=== PATIENT | female | born 1985 | race African-American/Black ===

== ENCOUNTER 2020-10-07 11:05 | Emergency (ER) | payer OTHER, SELFPAY ==
--- NOTE | 2020-10-07 11:07 | ED.GENADULT ---
HPI - General Adult General Chief complaint: Skin/Abscess/Foreign Body Stated complaint: rt arm pos spider bite Time Seen by Provider: 10/07/20 11:07 Source: patient Mode of arrival: ambulatory Limitations: no limitations History of Present Illness HPI narrative: 35-year-old female patient presents to the [facility] with complaints of a wound to the right arm above the elbow for the past 3 days. Patient states she was at work taking down some boxes. Patient denies any injury to the elbow or burn to the elbow. Patient states she thinks she might of gotten bit by something but is not sure. Patient states that has developed a blister and she has popped it for the last 2 nights but states it keeps coming back. Patient states it also feels slightly warm to the touch but no pain with movement of the elbow. Patient states she has had some chills but denies fevers or body aches. Related Data Home Medications Medication Instructions Recorded Confirmed aspirin [Adult Low Dose Aspirin] 81 mg PO DAILY 10/07/20 10/07/20 metoprolol tartrate 50 mg PO DAILY 10/07/20 10/07/20 Allergies Allergy/AdvReac Type Severity Reaction Status Date / Time No Known Allergies Allergy Verified 10/07/20 11:14 Review of Systems Review of Systems: Narrative: CONSTITUTIONAL: Denies fever, chills, or sweats. EYES: Denies visual changes, redness, or discharge. ENT: Denies rhinorrhea, congestion, sore throat, or otalgia. CARDIOVASCULAR: Denies chest pain, palpitations, or edema. RESPIRATORY: Denies cough or dyspnea. GASTROINTESTINAL: Denies abdominal pain, nausea, vomiting, or diarrhea. GENITOURINARY: Denies dysuria or hematuria. SKIN: Denies rash or itching. Positive wound to the right elbow x3 days MUSCULOSKELETAL: Denies back pain, joint pain, or myalgia. NEUROLOGIC: Denies headache, numbness, or weakness. PSYCHIATRIC: Denies anxiety or depression. PMFSH Comments At the time of my signature I agree with nursing past medical history, surgical, social, and family history. There is no relevant family history pertinent to the presenting complaint. Exam Narrative: Exam Narrative: GENERAL: Well-appearing, well-nourished, and in no acute distress. HEAD: Normocephalic, atraumatic. EYES: PERRLA and EOMI. ENT: Nares clear, no rhinorrhea or epistaxis. Mucous membranes moist. NECK: Supple. No lymphadenopathy CHEST: Clear to auscultation. No respiratory distress. HEART: Regular rate and rhythm. No murmur heard. Normal peripheral pulses. ABDOMEN: Soft, nontender, nondistended, normal active bowel sounds. EXTREMITIES: Normal range of motion. No edema. SKIN: Warm, dry, no rash. Patient has some redness with some warmth noted above the elbow on the posterior side of the right arm. There is a blister that has developed to the area measuring approximately 1.5 cm. The blister is fluid-filled. Patient has good range of motion of the elbow. NEURO: No focal deficits. Alert and oriented x3. Course Vital Signs Vital signs: Vital Signs Temperature 37.1 C 10/07/20 11:19 Pulse Rate 77 10/07/20 11:19 Respiratory Rate 16 10/07/20 11:19 Blood Pressure 117/91 H 10/07/20 11:19 Pulse Oximetry 100 10/07/20 11:19 Temperature 37.1 C 10/07/20 11:19 Pulse Rate 77 10/07/20 11:19 Respiratory Rate 16 10/07/20 11:19 Blood Pressure 117/91 H 10/07/20 11:19 Pulse Oximetry 100 10/07/20 11:19 Vital signs reviewed Medical Decision Making Differential Diagnosis Differential Diagnosis: Differential diagnosis: Abscess, cellulitis, hidradenitis, laceration, puncture wound. Discussed with patient that it does appear that she has a blister to the elbow which we normally do not pop blisters and encouraged him to actually protect the blisters because there is healing going on underneath them. Discussed with her that the skin around the blister though does appear red with some warmth therefore we will go ahead and treat her as a cellulitis infection today wit
[2020-10-07 11:19] VITALS: BP 117/91; PULSE 77; RESP 16; TEMP 37.1; O2SAT 100
== END 2020-10-07 11:36 | disposition home or self-care (01) ==
PROVIDERS: Emergency Provider Nurse Practitioner Family
DX: S40.821A Blister (nonthermal) of right upper arm, initial encounter (principal); L03.113 Cellulitis of right upper limb; J45.909 Unspecified asthma, uncomplicated; I25.10 Atherosclerotic heart disease of native coronary artery without angina pectoris
CPT/HCPCS: 99213; G0463

== ENCOUNTER 2022-11-25 09:40 | Emergency (ER) | payer OTHER, SELFPAY ==
[2022-11-25] VITALS (7 sets, daily range): BP systolic 116–127; BP diastolic 79–98; PULSE 87–110; RESP 16; TEMP 36.8; O2SAT 98–100
--- NOTE | ~2022-11-25 | CT_ITS ---
EXAMINATION: CT abdomen pelvis w con DATE: 11/25/2022 13:40 INDICATION: Concern for pyelonephritis TECHNIQUE: Computed tomography (CT) of the abdomen and pelvis was performed with 100 cc Omnipaque 350 intravenous contrast. The dose-length product was 344.38 mGy-cm. Automated exposure control and iter ative reconstruction technique were employed. COMPARISON: None. FINDINGS: Lung bases unremarkable. Heart size normal. No significant pleural or pericardial effusion. No significant vascular abnormality. No lymphadenopathy. There is free fluid in the pelvis, likely p hysiologic. Fatty infiltration of the liver. The spleen, pancreas, adrenal glands and kidneys are unr emarkable. No hydronephrosis. No areas of hypoperfusion. No free air. Nonobstructive bowel pattern. T he bladder is decompressed. IMPRESSION: 1. No acute abdominal abnormality. Free fluid in the pelvis, likely physiologic. Reviewed, dictated and finalized at location B. IMPRESSION: 1. No acute abdominal abnormality. Free fluid in the pelvis, likely physiologic .
--- NOTE | 2022-11-25 10:49 | ED.GENADULT ---
HPI - General Adult General Chief complaint: Unspecified Stated complaint: multiple complaints Time Seen by Provider: 11/25/22 09:51 Source: patient Mode of arrival: ambulatory Limitations: no limitations History of Present Illness HPI narrative: This is a 37-year-old female who presents to the ED with chief complaint of generalized abdominal pain, bilateral flank pain, bilateral upper extremity tingling, shortness of breath for the past 3 days. Patient states that the abdominal pain and back pain has been a problem for several weeks. She had a recent EGD. She feels like the pain is unchanged but she started having tingling and shortness of breath last night. States she has been stressed out with this. She also reports some difficulty with urination and frequency. Denies fevers, chills, diarrhea, nausea, vomiting. Related Data Home Medications Medication Instructions Recorded Confirmed aspirin 81 mg tablet 81 mg PO DAILY 10/07/20 10/07/20 metoprolol tartrate 50 mg tablet 50 mg PO DAILY 10/07/20 10/07/20 Allergies Allergy/AdvReac Type Severity Reaction Status Date / Time No Known Allergies Allergy Verified 11/25/22 09:45 Review of Systems Review of Systems: CONSTITUTIONAL: Denies fever, chills, or sweats. EYES: Denies visual changes, redness, or discharge. ENT: Denies rhinorrhea, congestion, sore throat, or otalgia. CARDIOVASCULAR: Denies chest pain, palpitations, or edema. RESPIRATORY: Denies cough or dyspnea. GASTROINTESTINAL: See HPI GENITOURINARY: See HPI SKIN: Denies rash or itching. MUSCULOSKELETAL: Denies back pain, joint pain, or myalgia. NEUROLOGIC: Denies headache, numbness, dizziness, or weakness. PSYCHIATRIC: Denies anxiety or depression. Exam Narrative: GENERAL: Well-appearing, well-nourished, and in no acute distress. HEAD: Normocephalic, atraumatic. EYES: PERRLA and EOMI. ENT: Nares clear, no rhinorrhea or epistaxis. Mucous membranes moist. Oropharynx without tonsillar hypertrophy exudate or other lesions. NECK: Supple. No adenopathy or masses. CHEST: No respiratory distress. Clear to auscultation. No wheezes rales or rhonchi HEART: Regular rate and rhythm. No murmur heard. Normal peripheral pulses. ABDOMEN: Mild bilateral flank tenderness. Soft, otherwise nontender, nondistended, normal active bowel sounds. MSK: Normal range of motion. No edema. SKIN: Warm, dry, no rash. NEURO: Alert and oriented x3. No focal deficits. PSYCH: Normal mood and affect. Course Course Emergency Course: Reevaluation 1308: Playing on phone when I enter the room. Patient states the abdominal pain is much better but she still having a lot of flank pain bilaterally. CT scan of the abdomen pelvis with contrast was ordered. Reevaluation 1400: Again resting comfortably and playing on phone when I entered the room. States she still has some discomfort in the flanks. We discussed that I would not be able to eliminate all of her pain today but the goal is to get it under control. Vital Signs Vital signs: Vital Signs Temperature 98.2 F 11/25/22 09:42 Pulse Rate 93 11/25/22 09:42 Respiratory Rate 16 11/25/22 09:42 Blood Pressure 122/79 11/25/22 09:42 Pulse Oximetry 99 11/25/22 09:42 Temperature 98.2 F 11/25/22 09:42 Pulse Rate 110 H 11/25/22 14:50 Respiratory Rate 16 11/25/22 14:50 Blood Pressure 120/84 11/25/22 14:50 Pulse Oximetry 98 11/25/22 14:50 Medical Decision Making MDM Narrative Medical decision making narrative: This is a 37-year-old female who presents to the ED with chief complaint of bilateral flank pain and generalized abdominal pain. vitals are stable. Afebrile. Lab work is largely unremarkable. test negative. Symptoms consistent with a viral syndrome. Lymphocytosis present. No left shift. She does have some urinary symptoms with some white blood cells on the urine along with a mild white count of 13. Will cover with Keflex. Her
[2022-11-25] MEDS: SODIUM CHLORIDE 0.9% IV 1,000 ML 999 ML IV CONT (11:11)
[2022-11-25] MEDS: FAMOTIDINE 20 MG/2 ML VIAL IV PUSH (11:12)
[2022-11-25] MEDS: BELLADONNA ALK/PHENOB ELIX 10 ML, MAG HYDROX/ALUMINUM HYD/SIMETH 30 ML, LIDOCAINE HCL 2... PO (11:13)
[2022-11-25] MEDS: KETOROLAC 15 MG/ML VIAL (*BKC) IV PUSH (11:34)
[2022-11-25 12:12] LABS: Basophils Absolute Auto 0.1 K/mm3 (0.0-0.1); Basophils Percent Auto 0.5 % (0.2-1.2); Eosinophils Absolute Auto 0.1 K/mm3 (0-0.3); Eosinophils Percent Auto 0.5 % (0-4.4); Hemoglobin 11.3 g/dL (12.0-15.0); Immature Granulocyte Absolute 0.02 K/mm3 (0.00-0.031); Immature Granulocyte Percent A 0.2 % (0-0.5); Lymphocytes Absolute Auto 10.67 K/mm3 (0.9-3.2); Lymphocytes Percent Auto 81.1 % (18.3-44.2); Mean Corpuscular HGB Conc 30.5 g/dl (32-36); Mean Corpuscular Hemoglobin 23.7 pg (26-34); Mean Corpuscular Volume 77.6 fl (80-100); Mean Platelet Volume 10.8 fl (7.4-10.4); Monocytes Absolute Auto 0.9 K/mm3 (0.1-0.6); Neutrophils Absolute Auto 1.4 K/mm3 (1.3-6.7); Neutrophils Percent Auto 10.7 % (45.5-73.1); Platelet Count Result 261 k/mm3 (150-375); Red Blood Count 4.77 M/mm3 (4.2-5.4); Red Cell Distribution Width 19.9 % (11.5-14.5); White Blood Count 13.2 K/mm3 (4.5-10.0)
[2022-11-25 12:14] LABS: Appearance Urine Cloudy (Clear); Bacteria Urine None Seen /hpf; Bilirubin Urine Negative (Negative); Blood Urine Negative (Negative); Color Urine Yellow (Yellow); Glucose Urine UA Negative (Negative); Ketones Urine Negative (Negative); Leukocyte Esterase Ur Negative LEU/UL (Negative); Nitrate Urine Negative (Negative); Non Pathogenic Casts 0-2; Protein Urine 1+ mg/dL (Negative); RBC Urine 0-2 /hpf (0-2); Specific Grav Ur 1.018 (1.001-1.035); Squamous Epithelial Cell Urine Many /hpf (Few); pH Urine 6.5 (5.0-9.0)
[2022-11-25 12:22] LABS: Add Urine Microscopic? YES
[2022-11-25 12:23] LABS: Alanine Aminotransferase 84 U/L (6-35); Albumin Level 3.7 g/dL (3.5-5.1); Alkaline Phosphatase 68 U/L (38-126); Anion Gap 4 mmol/L (8-16); Aspartate Amino Transferase 133 U/L (14-36); Bilirubin,Total 0.6 mg/dL (0.2-1.3); Blood Urea Nitrogen 5 mg/dL (7-17); Calcium 8.6 mg/dL (8.4-10.2); Carbon Dioxide 30 mmol/L (22-30); Chloride 102 mmol/L (98-107); Estimated CRCL calculation 78 ml/min; Estimated Glomerular Filt Rate > 60; Glucose 99 mg/dL (65-110); Sodium 136 mmol/L (137-145)
[2022-11-25 12:37] LABS: Atypical Lymphocytes Present; Platelet Estimate Adequate (Adequate); Schistocytes None Seen (NORMAL); Target Cells 1+ (NORMAL)
[2022-11-25 14:25] LABS: CRP 1.2 mg/dL (<1.0)
== END 2022-11-25 14:50 | disposition home or self-care (01) ==
PROVIDERS: Emergency Provider Physician Assistant; PCP Nurse Practitioner Family
DX: B34.9 Viral infection, unspecified (principal); N39.0 Urinary tract infection, site not specified
CPT/HCPCS: 36415; 74177; 80053; 81001; 81025; 85025; 86140; 87086; 96361; 96374; 96375; 99284; A9270; J1885; J7030; Q9967

== ENCOUNTER 2023-12-01 17:37 | Emergency (ER) | payer MEDICAID, SELFPAY ==
[2023-12-01 17:38] VITALS: BP 150/94; PULSE 110; RESP 16; TEMP 37; O2SAT 100
[2023-12-01 17:55] VITALS: BP 145/79; PULSE 104; RESP 18; O2SAT 100
--- NOTE | 2023-12-01 18:33 | ED.GENADULT ---
HPI - General Adult General Chief complaint: Nausea/Vomiting/Diarrhea Stated complaint: vomitting- 10w Time Seen by Provider: 12/01/23 18:13 Source: patient Mode of arrival: ambulatory Limitations: no limitations History of Present Illness HPI narrative: This is a 38-year-old female who is around 10 weeks and presents for chief complaint of N/V beginning today. Medical reports this is her 3rd . She was advised by her doctor to come to the ED for medications and fluids as she has not been able to tolerate anything by mouth. States that the cheezits that she is currently eating have been the only thing she is able to eat today. Denies abdominal pain, diarrhea, fevers, chills, urinary symptoms, vaginal bleeding or discharge. She has been taking promethazine and B6 with minimal relief. Related Data Home Medications Medication Instructions Recorded Confirmed aspirin 81 mg tablet 81 mg PO DAILY 10/07/20 10/07/20 metoprolol tartrate 50 mg tablet 50 mg PO DAILY 10/07/20 10/07/20 Allergies Allergy/AdvReac Type Severity Reaction Status Date / Time No Known Allergies Allergy Verified 12/01/23 17:37 Review of Systems Review of Systems: All systems as dictated in HPI Exam Narrative: GENERAL: Well-appearing, well-nourished, and in no acute distress. Eating crackers and twix bar during exam HEAD: Normocephalic, atraumatic. EYES: PERRLA and EOMI. ENT: Nares clear, no rhinorrhea or epistaxis. Mucous membranes moist. Oropharynx without tonsillar hypertrophy exudate or other lesions. NECK: Supple. No adenopathy or masses. CHEST: No respiratory distress. Clear to auscultation. No wheezes rales or rhonchi HEART: Regular rate and rhythm. No murmur heard. Normal peripheral pulses. ABDOMEN: Soft, nontender, nondistended, normal active bowel sounds. MSK: Normal range of motion. No edema. SKIN: Warm, dry, no rash. NEURO: Alert and oriented x3. No focal deficits. PSYCH: Normal mood and affect. Course Vital Signs Vital signs: Vital Signs Temperature 98.6 F 12/01/23 17:38 Pulse Rate 110 H 12/01/23 17:38 Respiratory Rate 16 12/01/23 17:38 Blood Pressure 150/94 H 12/01/23 17:38 Pulse Oximetry 100 05/22/24 17:38 Oxygen Delivery Room Air 12/01/23 17:38 Temperature 98.6 F 12/01/23 17:38 Pulse Rate 83 12/01/23 19:54 Respiratory Rate 18 12/01/23 19:54 Blood Pressure 112/68 12/01/23 19:54 Pulse Oximetry 100 12/01/23 19:54 Oxygen Delivery Room Air 12/01/23 17:38 Medical Decision Making MDM Narrative Medical decision making narrative: This is a 30-year-old female who is X weeks presents to the ED for nausea and vomiting. Vitals show initial slight tachycardia but otherwise normal. Exam is benign. No abdominal tenderness or pain. Lab work is unremarkable overall. She has improved greatly with fluids and antiemetics here. She has been tolerating p.o since initial evaluation. Symptoms consistent with -related nausea. Pt will be discharged in stable condition. Return precautions given and supportive measures discussed. Pt is understanding and agreeable with plan for discharge and follow-up with PCP. Vital Signs Vital Signs: Vital Signs Temperature 98.6 F 12/01/23 17:38 Pulse Rate 110 H 12/01/23 17:38 Respiratory Rate 16 12/01/23 17:38 Blood Pressure 150/94 H 12/01/23 17:38 Pulse Oximetry 100 12/01/23 17:38 Oxygen Delivery Room Air 12/01/23 17:38 Temperature 98.6 F 12/01/23 17:38 Pulse Rate 83 12/01/23 19:54 Respiratory Rate 18 12/01/23 19:54 Blood Pressure 112/68 12/01/23 19:54 Pulse Oximetry 100 12/01/23 19:54 Oxygen Delivery Room Air 12/01/23 17:38 Lab Data 12/01/23 18:45 12/01/23 18:45 Labs: Lab Results 12/01/23 12/01/23 Range/Units 18:45 19:48 WBC 9.3 (4.5-10.0) K/mm3 RBC 4.28 (4.2-5.4) M/mm3 Hgb 10.2 L (12.0-15.0) g/dL Hct
[2023-12-01] MEDS: ONDANSETRON INJ 4 MG/2 ML VIAL IV PUSH (18:47)
[2023-12-01] MEDS: SODIUM CHLORIDE 0.9% IV 1,000 ML 999 ML IV CONT (18:48)
[2023-12-01 18:52] LABS: Basophils Percent Auto 0.2 % (0.2-1.2); Eosinophils Percent Auto 0.3 % (0-4.4); Hematocrit 32.4 % (37.0-47.0); Hemoglobin 10.2 g/dL (12.0-15.0); Immature Granulocyte Absolute 0.02 K/mm3 (0.00-0.031); Immature Granulocyte Percent A 0.2 % (0-0.5); Lymphocytes Absolute Auto 4.35 K/mm3 (0.9-3.2); Lymphocytes Percent Auto 46.7 % (18.3-44.2); Mean Corpuscular HGB Conc 31.5 g/dl (32-36); Mean Corpuscular Hemoglobin 23.8 pg (26-34); Mean Corpuscular Volume 75.7 fl (80-100); Mean Platelet Volume 9.9 fl (7.4-10.4); Monocytes Percent Auto 10.2 % (2.6-8.5); Neutrophils Absolute Auto 3.9 K/mm3 (1.3-6.7); Neutrophils Percent Auto 42.4 % (45.5-73.1); Platelet Count Result 297 k/mm3 (150-375); Red Blood Count 4.28 M/mm3 (4.2-5.4); Red Cell Distribution Width 20.3 % (11.5-14.5); White Blood Count 9.3 K/mm3 (4.5-10.0)
[2023-12-01 19:03] LABS: Alanine Aminotransferase 16 U/L (6-35); Albumin Level 4.5 g/dL (3.5-5.1); Alkaline Phosphatase 56 U/L (38-126); Anion Gap 10 mmol/L (4-12); Aspartate Amino Transferase 29 U/L (14-36); Bilirubin,Total 0.5 mg/dL (0.2-1.3); Blood Urea Nitrogen 12 mg/dL (7-17); Calcium 10.3 mg/dL (8.4-10.2); Carbon Dioxide 22 mmol/L (22-30); Chloride 104 mmol/L (98-107); Estimated CRCL calculation 88 ml/min; Estimated Glomerular Filt Rate > 60; Glucose 108 mg/dL (65-110); Lipase 48 U/L (23-300); Potassium 3.5 mmol/L (3.4-5.0); Sodium 136 mmol/L (137-145)
[2023-12-01 19:04] LABS: Lactic Acid Reflex 1.4 mmol/L (0.7-2.0)
[2023-12-01 19:54] VITALS: BP 112/68; PULSE 83; RESP 18; O2SAT 100
[2023-12-01 20:49] LABS: Appearance Urine Clear (Clear); Bacteria Urine 3+ /hpf; Bilirubin Urine Negative (Negative); Blood Urine Negative (Negative); Color Urine Yellow (Yellow); Glucose Urine UA Negative (Negative); Ketones Urine Negative (Negative); Leukocyte Esterase Ur 1+ LEU/UL (Negative); Nitrate Urine Negative (Negative); Non Pathogenic Casts 0-2; Protein Urine Negative (Negative); RBC Urine 0-2 /hpf (0-2); Specific Grav Ur 1.023 (1.001-1.035); Squamous Epithelial Cell Urine Many /hpf (Few); Urobilinogen Urine 0.2 mg/dL (<2.0); WBC Urine 21-50 /hpf (0-3)
[2023-12-01 21:08] LABS: Add Urine Microscopic? YES
== END 2023-12-01 20:50 | disposition home or self-care (01) ==
PROVIDERS: Emergency Provider Physician Assistant; PCP Nurse Practitioner Family
DX: O21.9 Vomiting of pregnancy, unspecified (principal); Z3A.10 10 weeks gestation of pregnancy
CPT/HCPCS: 36415; 80053; 81001; 83605; 83690; 84702; 85025; 87086; 87088; 96361; 96374; 99284; J2405; J7030

== ENCOUNTER 2025-06-14 22:35 | Emergency (ER) | payer MEDICAID, SELFPAY ==
--- NOTE | ~2025-06-14 | CT_ITS ---
EXAMINATION: CT abdomen pelvis wo con DATE: 06/15/2025 01:24 INDICATION: Flank pain. TECHNIQUE: Computed tomography (CT) of the abdomen and pelvis was performed without intravenous contrast. Automated exposure control and iterative reconstruction technique were employed. The dose-length product was 553.11 mGy-cm. COMPARISON: CT abdomen and pelvis 11/25/2022 FINDINGS: The visualized portions of the lung bases demonstrate bronchiectasis in lingula. No pleural effusion. The heart size is normal. No pericardial effusion. The liver, gallbladder, spleen, pancreas, and right adrenal gland are normal. There is a 1.6 cm mass in left adrenal gland measuring soft tissue attenuation without change from 11/25/2022, likely an adenoma. The kidneys are normal. There is no urolithiasis. The appendix is normal. There are no dilated loops of bowel. There are no pathologically enlarged lymph nodes. There is no free intraperitoneal fluid. There is mild lumbar spondylosis. IMPRESSION: 1. No urolithiasis. Reviewed, dictated and finalized at location E. [employer] IMPRESSION: 1. No urolithiasis.
--- OUTSIDE RECORDS SUMMARY | 2025-06-14 22:37 | XMS_ITS | Data Portability ---
Author Organization [facility] [place] Address [address] [place] [address] Assessment Encounter Date Assessment Date Assessment LastModified by Organization Details LastModified Time 01/14/2024 01/14/2024 Patient is _16__weeks . Discussed plan. Not available 01/14/2024 15:39:33 02/09/2024 02/09/2024 Patient is _20__weeks . Discussed plan. Not available 02/09/2024 18:05:48 09/21/2024 09/21/2024 Annual gynecological exam performed. Patient will come back in a year unless there are new symptoms. [email or web address] Not available 09/21/2024 16:24:18 Plan of Treatment Reminders Order Date Submit Date Provider Last Modified By Organization Details Last Modified Time Details Appointments None record ed. Lab None record ed. Referral None record ed. Procedures None record ed. Surgeries None record ed. Imaging None record ed. Medication Orders None record ed. Patient TargetsNo targets recorded. Patient InstructionsNo instructions recorded. Reason for Referral None Reported. Results Created Date Observation Date Name Description Value Unit Range Abnormal Flag Note LastModifiedBy Organization Detail LastModifiedTime 01/23/20 24 01/23/2024 [UNIT Y] ANEUP LOIDY NIPT fraction 6.1% normal Not Available Martina curiel [address], [place], [address], 01/23/2024 22:09:06 01/23/20 24 01/23/2024 [UNIT Y] ANEUP LOIDY NIPT sex chromosome aneuploidy NOT DETECT ED normal Not Available [facility] [address], [place], [address], 01/23/2024 22:09:06 01/23/20 24 01/23/2024 [UNIT Y] ANEUP LOIDY NIPT monosomy X LOW RISK <1 in 10,000 normal Not Available [facility] [address], [place], [address], 01/23/2024 22:09:06 01/23/20 24 01/23/2024 [UNIT Y] ANEUP LOIDY NIPT trisomy 13 LOW RISK <1 in 10,000 normal Not Available [facility] [address], [place], [address], 01/23/2024 22:09:06 01/23/20 24 01/23/2024 [UNIT Y] ANEUP LOIDY NIPT trisomy 18 LOW RISK <1 in 10,000 normal Not Available [facility] [address], [place], [address], 01/23/2024 22:09:06 01/23/20 24 01/23/2024 [UNIT Y] ANEUP LOIDY NIPT trisomy 21 LOW RISK <1 in 10,000 normal Not Available [facility] [address], [place], [address], 01/23/2024 22:09:06 01/23/20 24 01/23/2024 [UNIT Y] ANEUP LOIDY NIPT sex MALE normal Not Available [facility] [address], [place], [address], 01/23/2024 22:09:06 01/23/20 24 01/23/2024 [UNIT Y] ANEUP LOIDY NIPT gestation SINGLE TON normal Not Available [facility] [address], [place], [address], 01/23/2024 22:09:06 01/23/20 24 01/23/2024 [UNIT Y] ANEUP LOIDY NIPT for detailed report, see pdf See PDF normal Not Available [facility] [address], [place], [address], 01/23/2024 22:09:06 01/24/20 24 01/24/2024 [UNIT Y] RAISA Watt sickle cell disease/beta -thalassemia /hemoglobino pathies carrier screen NEGATI VE normal Not Available [facility] [address], [place], [address], 01/24/2024 18:29:46 01/24/20 24 01/24/2024 [UNIT Y] RAISA Watt alpha-thalas semia carrier screen NEGATI VE normal Not Available [facility] [address], [place], [address], 01/24/2024 18:29:46 01/24/20 24 01/24/2024 [UNIT Y] RAISA Watt cystic fibrosis carrier screen NEGATI VE normal Not Available [facility] [address], [place], [address], 01/24/2024 18:29:46 01/24/20 24 01/24/2024 [UNIT Y] RAISA Watt spinal muscular atrophy carrier screen NEGATI VE 3 SMN1 copies , SNP presen t normal Not Available [facility] [address], [place], [address], 01/24/2024 18:29:46 01/24/20 24 01/24/2024 [UNIT Y] RAISA Watt for detailed report, see pdf See PDF normal Not Available [facility] [address], [place], [address], 01/24/2024 18:29:46 12/16/19 24 12/16/2023 CBC W/DIF F WBC 7.0 10'3/ uL 3.5-10 .5 Not Available [facility] (Lab) [address], [place], [address], 12/17/2023 12:26:15 12/16/19 24 12/16/2023 CBC W/DIF F RBC 4.06 10'6/ uL (based on docume nted legal sex) 3.80-5 .20 Not Available [facility] (Lab) [address], [place], [address], 12/17/2023 12:26:15 12/16/19 24 12/16/2023 CBC W/DIF F HGB 9.9 g/dL (based on docume nted legal sex) 11.6-1 5.4 low Not Available [facility] (Lab) [address], [place], [address], 12/17/2023 12:26:15 12/16/19 24 12/16/2023 CBC W/DIF F HCT 31.9 % (based on docume nted legal sex) 34.0-4 5.0 low Not Available [facility] (Lab) [address], [place], [address], 12/17/2023 12:26:15 12/16/19 24 12/16/2023 CBC W/DIF F MCV 78.6 fL 80.0-9 9.0 low Not Available [facility] (Lab) [address], [place], [address], 12/17/2023 12:26:15 12/16/19 24 12/16/2023 CBC W/DIF F MCH 24.4 pg 27.0-3 4.0 low Not Available [facility] (Lab) [address] [facility], [place], [address], 12/17/2023 12:26:15 12/16/19 24 12/16/2023 CBC W/DIF F MCHC 31.0 g/dL 32.0-3 5.5 low Not Available [facility] (Lab) [address] [place], [address], 12/17/2023 12:26:15 06/06/20 24 12/16/2023 CBC W/DIF F RDW 21.3 % 11.0-1 5.0 high Not Available [facility] (Lab) [address], [place], [address], 12/17/2023 12:26:15 12/16/19 24 12/16/2023 CBC W/DIF F plt 296 10'3/ uL 150-40 0 Not Available [facility] (Lab) [address], [place], [address], 12/17/2023 12:26:15 12/16/19 24 12/16/2023 CBC W/DIF F MPV 10.7 fL 8.8-12 .1 Not Available [facility] (Lab) [address], [place], [address], 12/17/2023 12:26:15 12/16/19 24 12/16/2023 CBC W/DIF F NRBC's 0.0 % 0.0 Not Available [facility] (Lab) [address], [place], [address], 12/17/2023 12:26:15 12/16/19 24 12/16/2023 CBC W/DIF F absolute NRBCs 0.0 10'3/ uL no refere nce range establ ished Not Available [facility] (Lab) [address], [place], [address], 12/17/2023 12:26:15 12/16/19 24 12/16/2023 CBC W/DIF F neutrophils 48.3 % 34.0-7 3.0 Not Available [facility] (Lab) [address], [place], [address], 12/17/2023 12:26:15 12/16/19 24 12/16/2023 CBC W/DIF F lymphocytes 38.8 % 15.0-5 0.0 Not Available [facility] (Lab) [address], [place], [address], 12/17/2023 12:26:15 12/16/19 24 12/16/2023 CBC W/DIF F monocytes 12.1 % 1.0-15 .0 Not Available [facility] (Lab) [address] [facility], [place], [address], 12/17/2023 12:26:15 12/16/19 24 12/16/2023 CBC W/DIF F eosinophils 0.6 % 0.0-8. 0 Not Available [facility] (Lab) [address] [facility], [place], [address], 12/17/2023 12:26:15 12/16/19 24 12/16/2023 CBC W/DIF F basophils 0.1 % 0.0-2. 0 Not Available [facility] (Lab) [address] [facility], [place], [address], 12/17/2023 12:26:15 12/16/19 24 12/16/2023 CBC W/DIF F immature granulocytes 0.1 % no define d refere nce range Not Available [facility] (Lab) [address] [facility], [place], [address], 12/17/2023 12:26:15 12/16/19 24 12/16/2023 CBC W/DIF F absolute neutrophils 3.4 10'3/ uL 1.5-8. 0 Not Available [facility] (Lab) [address] [facility], [place], [address], 12/17/2023 12:26:15 12/16/19 24 12/16/2023 CBC W/DIF F absolute lymphocytes 2.7 10'3/ uL 1.0-4. 0 Not Available [facility] (Lab) [address] [facility], [place], [address], 12/17/2023 12:26:15 12/16/19 24 12/16/2023 CBC W/DIF F absolute monocytes 0.9 10'3/ uL 0.2-1. 0 Not Available [facility] (Lab) [address] [facility], [place], [address], 12/17/2023 12:26:15 12/16/19 24 12/16/2023 CBC W/DIF F absolute eosinophils 0.0 10'3/ uL 0.0-0. 6 Not Available [facility] (Lab) [address] [facility], [place], [address], 12/17/2023 12:26:15 12/16/19 24 12/16/2023 CBC W/DIF F absolute basophils 0.0 10'3/ uL 0.0-0. 3 Not Available [facility] (Lab) [address] [facility], [place], [address], 12/17/2023 12:26:15 12/16/19 24 12/16/2023 CBC W/DIF F absolute immature granulocytes 0.0 10'3/ uL 0.00-0 .10 024 4:51 AM: P indic ates parti al resul ts on a panel have been relea sed. Addit ional resul ts will follo w. 024 4:52 AM: This resul t has been final verif ied. No addit ional or mccormick ed resul ts are expec hudson. Not Available [facility] (Lab) [address] [facility], [place], [address], 12/17/2023 12:26:15 12/16/19 24 12/16/2023 HEPAT ITIS C ANTIB ZACH SCREE N, REFLE X TO CONFI RMATI ON hepatitis C antibody Non-re active non-re active Antib odies to HCV Not Detec hudson, does not exclu de the possi bilit y of expos ure to HCV. Not Available [facility] (Lab) [address], [place], [address], 12/17/2023 12:26:15 12/16/19 24 12/16/2023 HEPAT ITIS B SURFA CE ANTIG EN hepatitis B surface antigen Non-re active non-re active This assay was perfo rmed using [employer] ratio n reage nts and test kits. Value s obtai everardo with other assay metho ds or kits canno t be used inter mccormick eably . Not Available [facility] (Lab) [address] [facility], [place], [address], 12/17/2023 12:26:16 12/16/19 24 12/16/2023 HIV 1/2 ANTIG EN/AN TIBOD Y, REFLE X CONFI RMATI ON HIV antigen/anti body Nonrea ctive nonrea ctive HIV-1 antig en and HIV-1 /HIV- 2 antib odies were not detec hudson. No labor atory evide nce of HIV infec tion. Not Available [facility] (Lab) [address] [facility], [place], [address], 12/17/2023 12:26:16 12/16/19 24 12/16/2023 RUBEL LA IGG ANTIB ZACH, QUANT rubella antibodies, IgG Reacti ve reacti ve Not Available [facility] (Lab) [address] [facility], [place], [address], 12/17/2023 12:26:17 12/16/19 24 12/16/2023 RUBEL LA IGG ANTIB ZACH, QUANT rubella antibodies, IgG quant 45.6 IU/mL >=10 Non-r eacti ve (Non- Immun e) <10 IU/mL React mickey (Immu ne) > or = 10 IU/mL Not Available [facility] (Lab) [address] [facility], [place], [address], 12/17/2023 12:26:17 12/16/19 24 12/16/2023 HEMOG LOBIN A1C hemoglobin A1C 5.5 % 0-5.6 The Ameri can [employer]xana [employer] iatio n recom mends that a prima ry goal of thera py anisaul d be a HBA1C of < 7% and that physi cians shoul d reeva luate the treat ment regim en in patie nts with HBA1C value s consi stent ly > 8%. <5.7% Yolanda l 5.7 - 6.4% Incre ased risk for diabe roxana >=6.5 % Diagn ostic of diabe roxana <7.0% Goal of thera py >8.0% Actio n danielage sted Not Available [facility] (Lab) [address] [facility], [place], [address], 12/17/2023 12:26:17 12/16/19 24 12/16/2023 TYPE/ RH/SC REEN ABO/Rh type O POS Not Available [facility] (Lab) [address] [facility], [place], [address], 12/17/2023 12:26:18 12/16/19 24 12/16/2023 TYPE/ RH/SC REEN antibody screen NEG Not Available [facility] (Lab) [address] [facility], [place], [address], 12/17/2023 12:26:18 12/16/19 24 12/16/2023 TYPE/ RH/SC REEN exp date 2023 23:59 Not Available [facility] (Lab) [address] [facility], [place], [address], 12/17/2023 12:26:18 12/16/19 24 12/16/2023 RPR SCREE N, REFLE X TITER /CONF IRMAT ION RPR screen Nonrea ctive nonrea ctive Not Available [facility] (Lab) [address] [facility], [place], [address], 12/17/2023 12:26:18 12/16/19 24 12/16/2023 CULTU RE: URINE result report SEE RESULT S BELOW Test: Cultu re: Urine Speci men Sourc e: Urine - Clean Catch Speci men Type: Urine Speci men Date: 4:43 PM Resul t Date: 6:30 AM Resul t Statu s: Final resul t Abnor mal: No Resul ting Lab: [facility] [address] [facility] [address] Tel: CULTU RE ----- ----- ----- --- No growt h in 1 day (dete ction level of 10,00 0 colon ies / ml.) Not Available [facility] (Lab) [address], [place], [address], 12/18/2023 07:35:31 12/16/19 24 12/16/2023 drug scree n, urine Amphetamines : negati ve Not Available [place] [address], [place], [address], 12/16/2023 16:46:22 12/16/19 24 12/16/2023 drug scree n, urine Cannabinoids : positi ve Not Available [place] [address], [place], [address], 12/16/2023 16:46:22 12/16/19 24 12/16/2023 drug scree n, urine Cocaine: negati ve Not Available [place] [address], [place], [address], 12/16/2023 16:46:22 12/16/19 24 12/16/2023 drug scree n, urine Opiates: negati ve Not Available [place] [address], [place], [address], 12/16/2023 16:46:22 12/16/19 24 12/16/2023 drug scree n, urine Phenocyclidi ne: negati ve Not Available [place] [address], [place], [address], 12/16/2023 16:46:22 12/16/19 24 12/16/2023 drug scree n, urine Barbiturates : negati ve Not Available [place] [address], [place], [address], 12/16/2023 16:46:22 12/16/19 24 12/16/2023 drug scree n, urine Benzodiazepi santana: negati ve Not Available [place] [address], [place], [address], 12/16/2023 16:46:22 12/16/19 24 12/16/2023 drug scree n, urine Ethanol: negati ve Not Available [place] [address], [place], [address], 12/16/2023 16:46:22 12/16/19 24 12/16/2023 drug scree n, urine Hallucinogen s: negati ve Not Available [place] [address], [place], [address], 12/16/2023 16:46:22 12/16/19 24 12/16/2023 drug scree n, urine Inhalants: negati ve Not Available [place] [address], [place], [address], 12/16/2023 16:46:22 12/16/19 24 12/16/2023 drug scree n, urine Anabolic Steroids: negati ve Not Available [place] [address], [place], [address], 12/16/2023 16:46:22 09/22/19 25 09/21/2024 IMAGE GUIDE D PAP AND HPV REGAR DLESS image guided Pap, HPV regardless of Pap result SEE RESULT S BELOW abnormal CASE REPOR T: Cytol ogy Gynec ologi fede Repor t Case: [id number] Autho rimaraln g Provi ramiro: Jenni Gage MD Colle cted: 09/21 1549 Order ing Locat ion: [place] [facility] Recei swapna: 09/22 0933 First Scree n: Strut z, Willi am, CT Rescr een: Tito en, Cassa ndra Speci men: Scree brittany Pap - Image d, Cervi x STATE MENT OF ADEQU ACY: UNSAT ISFAC TORY SPECI MEN ----- ----- ----- ----- ----- ----- ----- ----- ----- ----- ----- ----- ----- ----- ----- ----- ----- ---- FINAL DIAGN OSIS: Unsat isfac tory for evalu ation . Inade quate squam ous epith elial compo nent for diagn osis. Elect heather villarreal by Real Francis en on 2024 at 1038 CDT ----- ----- ----- ----- ----- ----- ----- ----- ----- ----- ----- ----- ----- ----- ----- ----- ----- ---- HPV RESUL TS: HPV mRNA E6/E7 : Posit mickey - HPV mRNA Detec hudson HPV GENOT YPE 16 (OCTAVIO) : Detec hudson HPV GENOT YPE 18/45 (OCTAVIO) : Not Detec hudson NOTE: This high risk HPV mRNA assay detec ts fourt een high- risk HPV types (16, 18, 31, 33, 35, 39, 45, 51, 52, 56, 58, 59, 66, 68) witho ut diffe renti ation . This assay can diffe renti ate HPV 16 from HPV 18/45 , but does not diffe renti ate betwe en HPV 18 and HPV 45. A negat mickey HPV 16, 18/45 genot ype assay resul t does not exclu de the possi bilit y of cytol ogic abnor malit ies or of futur e or under lying ANJELICA 1, ANJELICA 3 or cance r. COMME NT: This speci men was revie wed by a Cytot echno logis t and/o r Patho logis t (as indic ated in this repor t) after evalu ation using the Thinp rep Imagi ng Syste m. CLINI FEDE INFOR MATIO N: Menst rual Statu s: LMP (if appli cable ): Clini fede Histo ry/Pr eviou s Pap: Type of Neopl timmy (if appli cable ): Signi fican t Clini fede Findi ngs: Other Histo ry: Hormo santana (if appli cable ): Not Available [facility] (Lab) [address] [facility], [place], [address], 09/27/2024 11:41:40 09/22/19 25 09/21/2024 CT/GC (OCTAVIO) , THINP REP VIAL chlamydia trachomatis, PCR Negati ve negati ve Not Available [facility] (Lab) [address] [facility], [place], [address], 09/27/2024 11:41:40 09/22/19 25 09/21/2024 CT/GC (OCTAVIO) , THINP REP VIAL neisseria gonorrhoeae, PCR Negati ve negati ve Not Available [facility] (Lab) [address] [facility], [place], [address], 09/27/2024 11:41:40 09/22/19 25 09/21/2024 TRICH OMONA S VAGIN OLIVERIO (RRNA ) trichomonas vaginalis ribosomal RNA (rrna) Negati ve negati ve Not Available [facility] (Lab) [address] [facility], [place], [address], 09/27/2024 11:41:41 12/16/19 24 12/16/2023 US, obste tric, nucha l trans lucen cy No observ ation record ed. [email or web address] [address], [place], [address], 12/16/2023 16:47:33 12/16/19 24 12/16/2023 US, obste tric, nucha l trans lucen cy No observ ation record ed. [email or web address] Emmanuelle [address], [place], [address], 12/16/2023 22:15:43 01/19/20 24 01/19/2024 US, obste tric, follo w-up No observ ation record ed. [email or web address] [facility] [address], [place], [address], 01/21/2024 11:40:21 Result Notes None recorded. Problems Name Problem SNOMED Code Status Onset Date Resolution Date Notes Provider Name and Address Organization Details Recorded Time Advanced maternal age 215088691 Completed Aline timmons [facility] 4 11:29:34 Coronary arteriosc lerosis 61747457 Completed [facility] U/S & OV 4 1345 Aline Mock [facility] 4 11:29:34 Cardiac arrhythmi a [id number] Completed Aline Mock [facility], [facility] 4 11:29:34 83350267 Completed 202306/30/2024 Ange Weems [facility] 4 16:48:38 Coronary arteriosc lerosis 28901284 Active 2023 Bry Gage MD [address], [place], [address], [facility] 4 17:10:26 Problem Notes None recorded. Procedures Surgical History Date Name Laterality Status Provider Name and Address Organization Details Recorded Time 09/22/19 25 Date of Last Pap Smear completed Ange Weems [facility] 09/21/2024 16:26:09 07/12/19 04 lumpectomy of breast completed María Lowe [facility] 02/09/2024 17:54:30 07/12/19 02 termination of completed María Lowe [facility] 02/09/2024 17:54:43 Imaging Results None recorded. Procedure Notes None recorded. Medical Equipment None Reported. Allergies No known drug allergies Medications Name Sig Start Date Stop Date Status Note LastModified by Organization Details LastModified Time acetaminoph en 325 mg tablet TAKE 1 TABLET BY MOUTH EVERY DAY NEEDED FOR FEVER/KELSI N 11/18 completed Not Available Not Available Not Available cetirizine 10 mg tablet TAKE 1 TABLET BY MOUTH EVERY DAY 12/14 completed Not Available Not Available Not Available ibuprofen 800 mg tablet TAKE 1 TABLET BY MOUTH EVERY 8 HOURS 09/21 completed Not Available Not Available Not Available fluconazole 150 mg tablet TAKE 1 TABLET BY MOUTH ONCE FOR ONE DOSE 12/14 completed Not Available Not Available Not Available metoprolol succinate ER 50 mg tablet,exte nded release 24 hr TAKE 1 TABLET BY MOUTH EVERY DAY 12/14 completed Not Available Not Available Not Available ondansetron HCl 8 mg tablet TAKE 1 TABLET BY MOUTH EVERY 8 HOURS FOR NAUSEA/VO MITING 09/21 completed Not Available Not Available Not Available metronidazo le 0.75 % (37.5 mg/5 gram) vaginal gel USE 1 APPLICATO R EVERY NIGHT AT BEDTIME X 5 DAYS 11/18 completed Not Available Not Available Not Available amlodipine 5 mg tablet TAKE 1 TABLET BY MOUTH EVERY DAY active Not Available Not Available No t Available acetaminoph en 500 mg tablet 09/21 completed Not Available Not Available Not Available ondansetron 8 mg disintegrat ing tablet Place 1 tablet every 8 hours by transling ual route. 12/14 completed Not Available Not Available Not Available Zofran 4 mg tablet Take 1 tablet every 4-6 hours by oral route as needed. 12/06 completed Not Available Not Available Not Available oxycodone-a cetaminophe n 5 mg-325 mg tablet TAKE 1 TABLET BY MOUTH EVERY 6 HOURS NEEDED FOR PAIN 11/18 completed Not Available Not Available Not Available famotidine 20 mg tablet TAKE 1 TABLET BY MOUTH EVERY 12 HOURS active Not Available Not Available No t Available cephalexin 500 mg capsule TAKE 1 CAPSULE BY MOUTH EVERY 8 HOURS X1 WEEK 11/18 completed Not Available Not Available Not Available pantoprazol e 40 mg tablet,sydnee yed release TAKE 1 TABLET BY MOUTH EVERY DAY 12/14 completed Not Available Not Available Not Available ferrous sulfate 325 mg (65 mg iron) tablet TAKE 1 TABLET BY MOUTH EVERY DAY 09/21 completed Not Available Not Available Not Available promethazin e 25 mg tablet TAKE 1 TABLET BY MOUTH EVERY 4 HOURS 11/30 completed Not Available Not Available Not Available docusate sodium 100 mg capsule TAKE 1 CAPSULE BY MOUTH EVERY DAY 09/21 completed Not Available Not Available Not Available diclofenac sodium 75 mg tablet,sydnee yed release TAKE 1 TABLET BY MOUTH TWICE A DAY NEEDED 12/14 completed Not Available Not Available Not Available ibuprofen 600 mg tablet 09/21 completed Not Available Not Available Not Available scopolamine 1 mg over 3 days transdermal patch APPLY 1 PATCH TO SKIN EVERY 72 HOURS 01/20 completed Not Available Not Available Not Available albuterol sulfate HFA 90 mcg/actuati on aerosol inhaler INHALE 2 PUFFS BY MOUTH EVERY 4 HOURS NEEDED active Not Available Not Available No t Available ondansetron 4 mg disintegrat ing tablet Take 1 tablet by mouth every 4-6 hours as needed 12/06 completed Not Available Not Available Not Available fluticasone propionate 50 mcg/actuati on nasal spray,suspe nsion INSTILL 2 SPRAYS INTO THE NOSTRILS ONCE DAILY 11/18 completed Not Available Not Available Not Available naproxen 500 mg tablet TAKE 1 TABLET BY MOUTH TWICE A DAY NEEDED FOR PAIN 12/14 completed Not Available Not Available Not Available metoclopram emmanuel 10 mg tablet Take 1 tablet every 6 hours by oral route. 09/21 completed Not Available Not Available Not Available Symbicort 160 mcg-4.5 mcg/actuati on HFA aerosol inhaler INHALE 2 PUFFS BY MOUTH TWICE A DAY active Not Available Not Available No t Available Gavilax 17 gram/dose oral powder MIX 17 GRAMS IN LIQUID & DRINK EVERY 10 MINUTES FOR 8 DOSES 07/20 completed Not Available Not Available Not Available Vitals Date Recorded Body height Body mass index (BMI) Body weight Systolic And Diastolic Provider Name and Address Organization Details Last Updated DateTime 07/20/2024 167.64 cm 28.6 kg/m2 25090.85 g 145/93 mm[Hg] Nage [facility] 07/20/2024 15:47:20 Date Recorded Body height Body mass index (BMI) Body weight Systolic And Diastolic Provider Name and Address Organization Details Last Updated DateTime 09/21/2024 167.64 cm 29.4 kg/m2 33660.81 g 147/98 mm[Hg] Ange [facility] 09/21/2024 16:25:19 Date Recorded Body height Body mass index (BMI) Body weight Systolic And Diastolic Provider Name and Address Organization Details Last Updated DateTime 01/14/2024 167.64 cm 28.4 kg/m2 77971.538 646 g 116/78 mm[Hg] Amelia Busbyse [facility] 01/14/2024 15:24:23 Date Recorded Body weight Body mass index (BMI) Body height Systolic And Diastolic Provider Name and Address Organization Details Last Updated DateTime 02/09/2024 08217.441 86 g 28.7 kg/m2 167.64 cm 107/70 mm[Hg] María Mynor [facility] 02/09/2024 17:51:35 Date Recorded Body height Body mass index (BMI) Body weight Systolic And Diastolic Provider Name and Address Organization Details Last Updated DateTime 06/30/2024 167.64 cm 30.8 kg/m2 94466.14 g 131/89 mm[Hg] [facility] 06/30/2024 17:13:08 Social History Question Answer Notes LastModified by Organizat ion Details LastModified Time Tobacco Smoking Status Former Smoker Saumya timmons [facility] 11/19/2023 11:53:32 If You Are , What Was Your Level Of Alcohol Consumption Prior To ? Occasional [email or web address] Information not available 02/09/2024 Are You Blind Or Do You Have Difficulty Seeing? No Information not available 11/19/2023 What Is Your Level Of Caffeine Consumption? None [email or web address] Information not available 12/16/2023 How Much Tobacco Do You Chew? None [email or web address] Information not available 12/16/2023 In The 14 Days Before Symptom Onset, Have You Had Close Contact With A Laboratory-confir med COVID-19 While That Case Was Ill? No [email or web address] Information not available 11/19/2023 In The 14 Days Before Symptom Onset, Have You Had Close Contact With A Person Who Is Under Investigation For COVID-19 While That Person Was Ill? No [email or web address] Information not available 11/19/2023 Have You Been To An Area Known To Be High Risk For COVID-19? No [email or web address] Information not available 11/19/2023 Are You Deaf Or Do You Have Serious Difficulty Hearing? No [email or web address] Information not available 11/19/2023 What Type Of Diet Are You Following? REGULAR [email or web address] Information not available 12/16/2023 What Is The Highest Grade Or Level Of School You Have Completed Or The Highest Degree You Have Received? [id number] [email or web address] Information not available 12/16/2023 Are There Any Guns Present In Your Home? No [email or web address] Information not available 12/16/2023 Do You Use Protection During Sex? No [email or web address] Information not available 12/16/2023 Do You Use Your Seat Belt Or Car Seat Routinely? Yes Information not available 11/19/2023 Are You Sexually Active? Yes [email or web address] Information not available 11/19/2023 Do You Have Smoke And Carbon Monoxide Detectors In Your Home? Yes [email or web address] Information not available 11/19/2023 How Much Tobacco Do You Smoke? No [email or web address] Information not available 12/16/2023 Do You Use Sunscreen Routinely? No Information not available 12/16/2023 Have You Used IV Drugs? No [email or web address] Information not available 12/16/2023 Do You Have Difficulty Walking Or Climbing Stairs? No [email or web address] Information not available 11/19/2023 Sex: Unknown Functional Status Question Answer Note LastModified by Organizat ion Details LastModified Time What is your level of alcohol consumption? None [email or web address] Information not available 12/16/2023 Are you able to walk independently without assistance or assistive devices? YESWOREST [email or web address] Information not available 11/19/2023 Are you able to care for yourself independently? 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 No [email or web address] Information not available 11/19/2023 What is your exercise level? Occasional [email or web address] Information not available 12/16/2023 Mental Status Question Answer Note LastModified by Organization D etails LastModified Time Do you feel stressed (tense, restless, nervous, or anxious, or unable to sleep at night)? [id number] [email or web address] Information not available 12/16/2023 Family History Relationship Description Onset Age of this Age Resolved Age Notes LastModified by Organization Details LastModified Time Maternal Grandmother Hypertensive disorder [email or web address] Not available 2023 11:54:15 Maternal Grandmother Diabetes mellitus [email or web address] Not available 2023 11:55:03 Maternal Grandmother Heart disease Not available 02/08 17:56:14 Mother Hypertensive disorder [email or web address] Not available 2023 11:54:16 Mother Anemia [email or web address] Not available 02/09/2024 17:56:28 Mother Asthma [email or web address] Not available 02/09/2024 17:56:46 Mother Heart disease [email or web address] Not available 02/08 17:56:56 Mother Hypercholest erolemia [email or web address] Not available 02/08 17:57:06 Mother Cyst of ovary [email or web address] Not available 02/08 17:57:36 Maternal Aunt Hypertensive disorder [email or web address] Not available 2023 11:54:16 Maternal Aunt Diabetes mellitus [email or web address] Not available 2023 11:55:03 Sister Disorder of thyroid gland [email or web address] Not available 2023 11:54:47 Sister Anemia [email or web address] Not available 02/09/2024 17:56:28 Sister Asthma [email or web address] Not available 02/09/2024 17:56:46 Sister Seizure disorder Not available 02/08 17:57:56 Brother Asthma [email or web address] Not availabl e 02/09/2024 17:56:46 Medical History Condition Response Allergies (Food, seasonal, environmental ) Y Other Y Drug/Latex Allergies/Reactions N Blood Transfusion N Breast Cancer N Dermatologic Disorders N Lung Disease N Defects or Inherited Disease N Breast Problem Y Gestational Diabetes N Hematologic disorders N Anesthesia Complications N History of STI N Deep Vein Thrombosis N Polycystic ovary syndrome N Anxiety Disorder N Autoimmune disease N Arthritis N Polyps N Infertility N Acid Reflux (GERD) N History of abnormal pap N Cancer N Varicosities N Stroke N Neurologic/Epilepsy N Endometriosis N High Cholesterol N Fibromyalgia N Headaches N Kidney Disease N Heart Problems Y Thyroid Problems N Kidney or Bladder Problems N GI Problems N Eating Disorder N Anemia Y Art (IVF or FET) N Psychiatric Illness N Ovarian Cancer N Diabetes N Pulmonary (TB, Asthma) N Hepatitis/Liver Disease N No Past Medical History N Eczema N Urinary Tract Infection N Abuse/Domestic Violence N Asthma Y Trauma/Violence N Depression/ depression N Heart Disease N Pre-Eclampsia N Hypertension N Osteoporosis N Thrombophilias N Gynecological History Statement/Question Response Flow Heavy Date of Last Mammogram Date of LMP 09/17/2024 Was last menstrual period normal Y STIs/STDs N HPV Vaccine N Duration of Flow (days) 5 Current Control Method Breastfeedi ng/OSORIO Are cycles usually normal Y Frequency of Cycle (Q days) 28 Sexually Active? Y Menses Monthly Y Date of DEXA bone scan Date of Last Pap Smear 09/21/2024 Sexual Problems? N LMP Definite Obstetrics History GPAL:G 3 P 1 0 2 1 Type Value Full Term 1 Induced 1 Spontaneous 1 Living 1 Total 3 Past Encounters Encounter ID Performer Location Encounter Start Date Encounter Closed Date Diagnosis/Indication Diagnosis SNOMED-CT Code Diagnosis ICD10 Code Diagnosis IMO Codes Diagnosis Note [id number] Bry Gage MD [facility] [address] [address] 11/19/2023 10:57:06 11/19/2023 11:29:28 Uterine size for dates discrepancy 162840151 O26.841 Z3A.08 [id number] MD Sravanthi Apple [address] [address] 11/19/2023 11:02:50 11/19/2023 12:30:30 Nausea and vomiting 39259214 R11.2 Amenorrhea 31506762 N91. 2 [id number] Bry Gage MD [facility] [address],[place] [address] 12/16/2023 15:14:29 12/16/2023 16:03:41 screening 966752903 Z36.82 Z3A.12 [id number] Bry Gage MD [place] [address],[place] [address] 12/16/2023 15:16:18 12/16/2023 17:10:27 Routine care 693641231 Z34.01 Lourdes Brumfield [facility] [address],[place] [address] 01/14/2024 15:15:19 01/14/2024 15:58:10 Routine care 314773330 Z34.92 Cardiac arrhythmia 88332 7007 I49.9 [id number] Lourdes Brumfield [facility] [address],[place] [address] 02/09/2024 17:37:53 02/10/2024 10:38:59 Routine care 285203188 Z34.92 continue vitamintra nsfer of care to [facility] Advanced m aternal age 777634482 O09.522 [id number] Bry Gage MD [place] [address],[place] [address] 06/30/2024 15:56:50 06/30/2024 17:34:21 -induced hypertension 43038997 O13.9 This patient is a 38-year-ol d female who presents for follow-up. She is 1 week . She was delivered by high-risk / Maternal-F etal Medicine for coronary artery disease. She has normal blood pressures today. She has some elevated blood pressures in labor and delivery. She is given precaution s on preeclamps ia. She has blood pressure cuff. She knows what abnormal blood pressures are. She will contact us with any changes. She will return in 3 weeks for routine follow-up. [id number] Bry Gage MD [place] [address] [address] 07/20/2024 15:09:54 07/20/2024 16:11:21 care 948200485 Z39.2 this patient is a 38-year-ol d female presents for follow-up. She is breastfeed ing. Her baby is doing well. Her mood is good. She has not had intercours e. She continues to bleed a little bit. She declined contracept ion at this time. She will return couple of months for a well-woman exam. [id number] Bry Gage MD [place] [address] [address] 09/21/2024 16:11:13 09/21/2024 16:44:28 Gynecologic examination 69534466 Z01.419 Annual gynecologi fede exam performed. Patient will come back in a year unless there are new symptoms. Suggest Calcium with Vitamin D if not eating in diet. Patient advised to get annual flu shot. Recommend yearly physicals and preform monthly breast exams. Genetic testing is available for patients with family history of cancer. Engage in safe sexual practices, use condoms. Encouraged to have daily exercise. Avoid tobacco and illicit drugs, moderation of alcohol. If BMI greater than 25 dietary consult advised. If you have any questions please call or email. Pap smear- today laboratory evaluation - pending Health Concerns Section Related Observation LastModified by Organization Detai ls LastModified Time None Recorded Concern Status LastModified by Organization Details LastModified Time None Recorded Advance Directives Directive None Recorded Payers Insurance Date Sequence Insurance Name Policy Number Policy Jean Covered Member ID Jean Member ID Guarantor Name 11/21/2024 1 [facility] (MEDICAID HMO) [id number] Melanie Muñoz [id number] Melanie Muñoz 07/20/2024 2 [facility] (MEDICAID HMO) [id number] Melanie Muñoz [id number] Melanie Muñoz 01/14/2024 1 [place] Melanie Muñoz [id number] Melanie Muñoz Notes Date Note Type Note Provider Name and Address Organization Details Recorded Time 01/14/20 24 text/htm l Generic HPI TemplateReported by Patient Lourdes Brumfield CNM [address], [place], [address], [facility] 01/14/2024 15:55:17 02/09/20 24 text/htm l Generic HPI TemplateReported by Patient Lourdes Brumfield CNM [address], [place], [address], [facility] 02/09/2024 18:27:20 06/30/20 24 text/htm l This patient is a 38-year-old female who presents for follow-up. She is 1 week . She was delivered by high-risk / Maternal- Medicine for coronary artery disease. She has normal blood pressures today. She has some elevated blood pressures in labor and delivery. She is given precautions on preeclampsia. She has blood pressure cuff. She knows what abnormal blood pressures are. She will contact us with any changes. She will return in 3 weeks for routine follow-up. Bry Gage MD [address], [place], [address], [facility] 06/30/2024 17:34:09 07/20/19 25 text/htm l this patient is a 38-year-old female presents for follow-up. She is . Her baby is doing well. Her mood is good. She has not had intercourse. She continues to bleed a little bit. She declined contraception at this time. She will return couple of months for a well-woman exam. Bry Gage MD [address], [place], [address], [facility] 07/20/2024 16:10:55 09/22/19 25 text/htm l Annual GYNReported by PatientHistoryFor history, patient reportsno gynecologic complaints.Genitourinary symptomsFor menstrual cycle, patient reportsnormal menses. For urinary symptoms, patient reportsno hematuria. For vulva, patient reportsno genital lesion. For vagina, patient reportsnormal vaginal discharge.Breast symptomsFor breast, patient reportsno breast painandno breast lump.ContraceptionFor current contraception, patient reportsbirth control not practiced.Endocrine symptomsFor sexual complaints, patient reportsno sexual complaintsandno pain during intercourse. For menopausal symptoms, patient reportsno menopausal symptoms.Psychological symptomsFor psychological symptoms, patient reportsdepressionandanxiety(no t treated).Preventative measuresFor preventive measures, patient reportsencourage self breast examination. Bry Gage MD [address], [place], [address], [facility] 09/21/2024 16:43:53 OBGyn Episode Ob Episode Information Episode Created Date Number of Fetuses Patient Bloodtype Patient rh Status Prepregnancy Weight lbs Domestic Partner Domestic Partner Phone Father Name Supervisor Twisting Department Status 11/19/19 1 CLOSED Fetus Data First Name Last Name Admitted to NICU Weight (g) Sex Living Outcome Pediatric Complications Fetus ID Race Codes Race Delivery Type , Induced [id number] Francis Calculation Initial Francis Date Initial Exam Date Initial Exam Provider Initial Ultrasound Date Last Menstrual Period Date Ultra Sound Weeks Gestation 0 Eighteen To Twenty Week Francis Update Ultra Sound Date Fundal Height At Umbil Quickening Date Ultra Sound Latest Weeks Gestation Final Francis Confirmed By Final Francis Confirmed Date Final Francis Date Ultra Sound Latest Days Gestation 0 0 Menstrual History Last Menstrual Date Menses Monthly On Bcp Conception Prior Menses Frequency Hcg Plus Date Menarche Onset Age Delivery Information Delivery Date Delivery Type Labor Anesthesia Weeks Gestation Incision Type Labor Labor Length Hrs Delivered By Post Complications Tubal Sterilization Discharge Date Comments 2 Discharge Information Feeding Method Contraceptive Method Maternal HG B and HCT Levels Ob Episode Information Episode Created Date Number of Fetuses Patient Bloodtype Patient rh Status Prepregnancy Weight lbs Domestic Partner Domestic Partner Phone Father Name Supervisor Twisting Department Status 11/19/19 24 1 O Positive CLOSED Fetus Data First Name Last Name Admitted to NICU Weight (g) Sex Living Outcome Pediatric Complications Fetus ID Race Codes Race Delivery Type [id number] Vaginal Delivery Problems Problem Notes Repeat u/s with [facility] Problem Name Start Date End Date Resolution Snomed Code Not e Advanced maternal age [id number] Coronary arteriosclerosis 5374 1008 [facility] MFM U/S & OV 01/19/24 1345 Cardiac arrhythmia [id number] Francis Calculation Initial Francis Date Initial Exam Date Initial Exam Provider Initial Ultrasound Date Last Menstrual Period Date Ultra Sound Weeks Gestation 06/25/2024 11/19/2023 11/19/2023 08/19/2023 8 Eighteen To Twenty Week Francis Update Ultra Sound Date Fundal Height At Umbil Quickening Date Ultra Sound Latest Weeks Gestation Final Francis Confirmed By Final Francis Confirmed Date Final Francis Date Ultra Sound Latest Days Gestation 0 [email or web address] 11/19/2023 06/25/20 24 0 Pre- Flowsheet Flowsheet Date 11/19/2023 Mercer Score Blood Edema Fundus Height Fundus Units Glucose Ketones Leukocytes Nitrite Labor Signs Protein Cervic Dilation Cervic Effacement Cervic Station Type Weight in lbs Pre/Post Dialysis Refused Weight 168.215567358670 BP Diastolic BP Location Tested BP Systolic BP Type 76 L arm 110 sitting Fetus Heart Rate Present Fetus Movement Comments Flowsheet Date 12/16/2023 Mercer Score Blood Edema Fundus Height Fundus Units Glucose Ketones Leukocytes Nitrite Labor Signs Protein Cervic Dilation Cervic Effacement Cervic Station Type Weight in lbs Pre/Post Dialysis Refused BP Diastolic BP Location Tested BP Systolic BP Type Fetus Heart Rate Present Fetus Movement Comments Flowsheet Date 12/16/2023 Mercer Score Blood Edema Fundus Height Fundus Units Glucose Ketones Leukocytes Nitrite Labor Signs Protein Cervic Dilation Cervic Effacement Cervic Station neg none 12 none trace Type Weight in lbs Pre/Post Dialysis Refused Weight 173.204668166316 BP Diastolic BP Location Tested BP Systolic BP Type 84 L arm 126 sitting Fetus Heart Rate Present A 145 Fetus Movement A No Comments This patient is a 38-year-ol d 4 para 0 020 at 12 weeks gestation. Her is complicated by coronary artery disease and cardiac arrhythmia. She is history of elective and spontaneous miscarriage. We talked about care in detail. We talked about maternal medicine consult. We talked about the possibility of her delivering at a tertiary care center. She will begin routine care. She was given vaccine recommendations and I described care her in detail. Flowsheet Date 01/14/2024 Mercer Score Blood Edema Fundus Height Fundus Units Glucose Ketones Leukocytes Nitrite Labor Signs Protein Cervic Dilation Cervic Effacement Cervic Station none Type Weight in lbs Pre/Post Dialysis Refused Weight 175.020784064 BP Diastolic BP Location Tested BP Systolic BP Type 78 L arm 116 sitting Fetus Heart Rate Present A 152 Present Fetus Movement A No Comments Patient c/o nausea and lower pelvic cramping reviewed precautions, education, us for gender, unable to determine, plan blood work today, has mfm appt next week f/u here in 4 weeks, nausea improving, meds at home Flowsheet Date 02/09/2024 Mercer Score Blood Edema Fundus Height Fundus Units Glucose Ketones Leukocytes Nitrite Labor Signs Protein Cervic Dilation Cervic Effacement Cervic Station Type Weight in lbs Pre/Post Dialysis Refused 178.883737549728 BP Diastolic BP Location Tested BP Systolic BP Type 70 107 Fetus Heart Rate Present A 148 Present Fetus Movement A Yes Comments Patient states that is havin g some vaginal dryness, low abdominal and pelvic pain, discharge, swelling, nausea and vomiting. ok for oil based lubricant, transfer of care to [facility], precautions and education, +FM Flowsheet Date 06/30/2024 Mercer Score Blood Edema Fundus Height Fundus Units Glucose Ketones Leukocytes Nitrite Labor Signs Protein Cervic Dilation Cervic Effacement Cervic Station Type Weight in lbs Pre/Post Dialysis Refused Weight 191.754415519767 BP Diastolic BP Location Tested BP Systolic BP Type 89 L arm 131 sitting Fetus Heart Rate Present Fetus Movement Comments Menstrual History Last Menstrual Date Menses Monthly On Bcp Conception Prior Menses Frequency Hcg Plus Date Menarche Onset Age 0208/19/2023 Genetic Screening And Infection History Question Response Note Mental Retardation/Autism false Patient's Age Will Be 35 Years Or Older At Estim ated Date of Delivery false Thalassemia (Moroccan, Russian, Mediterranean, Or Background): MCV < 80 false Neural Tube Defect (Meningomyelocele, Spina Bifi da, Or Anencephaly) false Congenital Heart Defect false Down Syndrome false Justo-Sachs (eg, Mandaeism, Cajun, Yakut-Salvadorean) f alse Mak Disease false Sickle Cell Disease Or Trait () false Hemophilia Or Other Blood Disorders false Muscular Dystrophy false Cystic Fibrosis false Nicola's Chorea false Intellectual Disability/Autism false If Yes, Was Person Tested For Fragile X? false Other Inherited Genetic Or Chromosomal Disorder false Maternal Metabolic Disorder (eg, Type 1 Diabetes , PKU) false Patient Or Baby's Father Had A Child With Defects Not Listed Above false Recurrent Loss, Or A Stillbirth false Medications (including Suppl ements, Vitamins, Herbs, OTC Drugs), Illicit/Recreational Drugs, Alcohol false If Yes, Agent(s) And Strength/Dosage false Any Other Genetic History false Live With Someone With TB Or Exposed To TB false Patient Or Partner Has History Of Genital Herpes false Rash Or Viral Illness Since Last Menstrual Perio d false History Of STD, Gonorrhea, Chlamydia, HPV, Syphi lis false Other Infection History false History of HIV false History of Hepatitis false Prior GBS-infected child false Hemoglobinopathy Or Carrier false Other Structural Defect false Recent Travel History Outside of Country false Delivery Information Delivery Date Delivery Type Labor Anesthesia Weeks Gestation Incision Type Labor Labor Length Hrs Delivered By Post Complications Tubal Sterilization Discharge Date Comments 4 Induce d 39.6 Discharge Information Feeding Method Contraceptive Method Maternal HG B and HCT Levels Ob Episode Information Episode Created Date Number of Fetuses Patient Bloodtype Patient rh Status Prepregnancy Weight lbs Domestic Partner Domestic Partner Phone Father Name Supervisor Twisting Department Status 11/19/19 24 1 CLOSED Fetus Data First Name Last Name Admitted to NICU Weight (g) Sex Living Outcome Pediatric Complications Fetus ID Race Codes Race Delivery Type , Spontane ous [id number] Francis Calculation Initial Francis Date Initial Exam Date Initial Exam Provider Initial Ultrasound Date Last Menstrual Period Date Ultra Sound Weeks Gestation 0 Eighteen To Twenty Week Francis Update Ultra Sound Date Fundal Height At Umbil Quickening Date Ultra Sound Latest Weeks Gestation Final Francis Confirmed By Final Francis Confirmed Date Final Francis Date Ultra Sound Latest Days Gestation 0 0 Menstrual History Last Menstrual Date Menses Monthly On Bcp Conception Prior Menses Frequency Hcg Plus Date Menarche Onset Age Delivery Information Delivery Date Delivery Type Labor Anesthesia Weeks Gestation Incision Type Labor Labor Length Hrs Delivered By Post Complications Tubal Sterilization Discharge Date Comments 4 Discharge Information Feeding Method Contraceptive Method Maternal HG B and HCT Levels
--- OUTSIDE RECORDS SUMMARY | 2025-06-14 22:37 | XMS_ITS | Clinical Summary ---
Author Organization [facility] Address [address] [place] [address] Care Team Providers Care Sewer Builder Name Role Phone No, Physician Unavailable Referring, Unknown MD Primary Care Provider Unav ailable Allergies Active Allergy Reactions Criticality Noted Date Comments Atorvastatin Other (See comments) Low 02/08/2024 Patient is not on a statin as she is currently and should not be on a statin when she is of potential childbearing age. Clindamycin Vomiting Low 03/15/2019 vomiting Medications dicyclomine (BENTYL) 20 mg tablet Take 1 tablet (20 mg total) by mouth 2 (two) times a day 20 tablet 11/01/2022 Active aspirin 81 mg enteric coated tablet Take 1 tablet (81 mg total) by mouth daily 03/11/2018 Active Active Problems Problem Noted Date Diagnosed Date Iron deficiency anemia 02/16/2024 Multigravida of advanced maternal age 0802/15/2024 MVP (mitral valve prolapse) 02/08/2024 Essential hypertension 02/08/2024 Obstructive sleep apnea 02/08/2024 Coronary arteriosclerosis 02/08/2024 Sprain of lateral ligament of ankle joint 2022 Arthralgia of right ankle 05/16/2023 Anemia 04/20/2023 Anxiety 04/20/2023 Pain in right foot 04/20/2023 Asthma 04/20/2023 Cardiac arrhythmia 04/20/2023 Heart disease 04/20/2023 Depressive disorder 04/20/2023 Disorder of lung 04/20/2023 Dizziness 04/20/2023 Headache 04/20/2023 Heartburn 04/20/2023 Seasonal allergies 04/20/2023 Gastroesophageal reflux disease 02/11/2022 Lung nodule 05/16/2018 Coronary arteriosclerosis 05/02/2018 Overview (08/28/2024): [facility] U/S & OV 01/19/24 1345 Allergic rhinitis due to pollen 04/06/2017 Cigarette nicotine dependenc e with nicotine-induced disorder 04/06/2017 Moderate persistent asthma without complication 04/06/2017 Sleep disorder 04/06/2017 Cardiovascular stress test abnormal 12/28/2016 Medical History Medical History Date Comments Mitral valve prolapse Coronary artery disease Social History Tobacco Use Types Packs/Day Years Used Date Smoking Tobacco: Former Cigarettes 0 02/2022 - 02/2003 Smokeless Tobacco: Never Personal Safety Answer Date Recorded Getting School Help Needed Not on file 09/25 Comments Unknown Sex and Gender Information Value Date Recorded Sex Assigned at Not on file 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 Gender Identity Not on file Sexual Orientation Not on file Obstetrics History Para Term AB IAB SAB Ectopic Multiple Livin g Live Births 1 Date Outcome GA Total Labor Labor/2nd/3rd Weight Sex Type Anes PTL Johanna A1 A5 Name Clin Last Filed Vital Signs Vital Sign Reading Time Taken Comments Blood Pressure 120/70 09/25/2024 11:41 AM CDT Pulse 83 09/25/2024 11:41 AM CDT Temperature 36.7 C (98 F) 11/01/2022 10:10 AM CDT Respiratory Rate 14 11/01/2022 10:50 AM CDT Oxygen Saturation 97% 09/25/2024 11:41 AM CDT Inhaled Oxygen Concentration - - Weight 82.8 kg (182 lb 9.6 oz) 09/25/2024 11:41 AM CDT Height 167.6 cm (5' 6) 09/25/2024 11:41 AM CDT Body Mass Index 29.47 09/25/2024 11:41 AM CDT Plan of Treatment Health Maintenance Due Date Last Done Comments Depression Screening 1985 Hepatitis C Screening 1985 Varicella Vaccines (1 of 2 - 13+ 2-dose series) 1998 Regular Well Visit/Exam 18-64 09/12/2003 Pneumococcal vaccine <65 (1 of 2 - PCV) 2004 HPV Vaccines (1 - 3-dose SCD M series) 2012 Cervical Cancer Screening 11/27/2017 11/27/2016 Covid-19 Vaccine (2024-2 6 season) 2025 03/19/2022, 04/29/2021, 03/24/2021 Influenza Vaccine (#1) 2025 05/13/2023, 2021 DTaP/Tdap/Td Vaccine (8 - Td or Tdap) 04/04/2034 04/04/2024, 08/21/2021, 04/30/2000, Additional history exists Hepatitis B Screening Completed 03/16/2001 , 11/29/1999, 03/11/1996 Insurance [facility] Address: [place] [address] [facility] Care Teams Sewer Builder Relationship Specialty Start Date End Date Referring, Unknown, MD PCP - General Pediatrics 09/25/24 No, Physician 04/10/22
--- OUTSIDE RECORDS SUMMARY | 2025-06-14 22:37 | XMS_ITS | Clinical Summary ---
Author Organization [facility] Address [address] [place] [address] Care Team Providers Care Information Specialist Name Role Phone Guerda Jimenez DO Primary Care Provider [phone] Deneen Galo MD Unavailable [phone] Source Comments [facility],non-owned Affiliates and Associated Physician Practices is amultiple site organization consisting of ambulatory clinics and hospital sitesin [place], [place], [place] and [place]. This disclosure is being madepursuant to the Care Everywhere program and may not contain all information available regarding this patient. Last updated 18.[facility] Allergies Active Allergy Reactions Criticality Noted Date Comments Atorvastatin Other Low 02/08/2024 Patient is not on a statin as she is currently and should not be on a statin when she is of potential childbearing age. Clindamycin Vomiting Low 03/15/2019 vomiting Dust Mite Extract Unknown 02/15/2024 Medications * Be aware that medications may not be up to date on this document. Alwaysverify current medications with the patient. Vit-DSS-Fe Fum-FA ( vitamin with iron) tabletIndications : Take 1 (one) tablet by mouth once daily Reasons: Active ondansetron (Zofran) 8 MG tablet Take 1 (one) tablet by mouth every 8 hours as needed 4 Active metoclopramide (Reglan) 10 MG tablet 4 Active Pyridoxine HCl 100 MG Take 1 (one) tablet by mouth once daily Active fluticasone propionate (Flonase) 50 MCG/ACT nasal spray Active albuterol HFA (ProAir HFA) 108 (90 Base) MCG/ACT inhalerIndication s:Moderate persistent asthma without complication (HCC) Inhale 2 (two) puffs by mouth every 4 hours as needed 8.5 g 3 4 Active budesonide-formot kedar (Symbicort) 160-4.5 MCG/ACT inhalerIndication s:Moderate persistent asthma without complication (HCC),Seasonal allergies Inhale 2 (two) puffs by mouth 2 times daily 30.6 g 3 4 Active famotidine (Pepcid) 20 MG tablet Take 1 (one) tablet by mouth every 12 hours 60 tablet 2 4 Active polyethylene glycol 3350 (MiraLax) 17 GM/SCOOP powder Take 17 (seventeen) g by mouth once daily 238 g 06/26/2024 12:09 PM LINER HELPER 4 Active acetaminophen (Tylenol) 500 MG tablet Take 2 (two) tablets by mouth every 6 hours as needed for Fever or Pain 60 tablet 06/26/2024 12:09 PM LINER HELPER 4 Active docusate sodium (Colace) 100 MG capsule Take 1 (one) capsule by mouth once daily 30 capsule 06/26/2024 12:09 PM LINER HELPER 4 Active ibuprofen (Motrin) 600 MG tablet Take 1 (one) tablet by mouth every 6 hours as needed for Pain 30 tablet 06/26/2024 12:09 PM LINER HELPER 4 Active Active Problems Patient Care Coordination No te Formatting of this note migh t be different from the original. [employer] form completed. Diapers given. 04/04/2024, 05/02/2024, 05/16/24; 06/13/24 Problem Noted Date Diagnosed Date Congestion of nasal sinus 04/25/2024 Nausea and vomiting, unspecified vomiting type 1 Dizziness 03/20/2024 Iron deficiency anemia 02/16/2024 Multigravida of advanced maternal age 0802/15/2024 Seasonal allergies 04/20/2023 Cardiac arrhythmia 04/20/2023 Essential hypertension 04/10/2022 Gastroesophageal reflux disease 02/11/2022 Coronary arteriosclerosis 05/02/2018 Overview (02/15/2024): [facility] U/S & OV 01/19/24 1345 Moderate persistent asthma without complication 04/06/2017 Cardiovascular stress test abnormal 12/28/2016 Resolved Problems Problem Noted Date Diagnosed Date Resolved Date Iron deficiency anemia during 03/14/2024 05/02/2024 Immunizations Immunization Administration Dates Next Due DTAP, HISTORIC VACCINE 12/07/1989,1988,10/29/1987,1985,1985 HEP B VACCINE, PED/ADOL 03/16/2001,11/29/1999, HIB VACCINE 09/17/1989 INFLUENZA VACCINE 05/12/2022 INFLUENZA VACCINE, QUADR. (F LUZONE; FLULAVAL; FLUARIX; AFLURIA QUADRIVALENT; 6MO+), 0.5 ML (IIV4) 05/13/2023 MMR VACCINE 12/06/1990,06/27/1987 POLIO OPV 12/07/1989, 9,10/29/1987,1985,1985 POLIO,HISTORIC VACCINE 11/27/1989 TD (AGE 7-ADULT) 04/30/2000 TDAP (7yrs+) 06/25/2024(),04/04/2024,08/21/19 TDAP, HISTORIC VACCINE 08/21/2021 Family History Medical History Relation Name Comments CAD (Coronary Artery Disease) Maternal Grandmother Diabetes - Type 2 Maternal Grandmother Hypertension Maternal Grandmother Hypertension Mother Thyroid Disease Sister Cancer - Breast Neg Hx Cancer - Colon Neg Hx Cancer - Ovarian Neg Hx Cancer - Uterine Neg Hx Other - Defects Neg Hx Relation Name Status Comments Maternal Grandmother Mother Sister Social History Tobacco Use Types Packs/Day Years Used Date Smoking Tobacco: Former Cigarettes Smokeless Tobacco: Never Tobacco Cessation:Counseling Given: Not Answered Alcohol Use Standard Drinks/Week Comments Not Currently 0 (1 standard drink = 0.6 oz pur e alcohol) AUDIT-C Answer Date Recorded Q1: How often do you have a drink containing alcohol? Never 04/28/2024 Q2: How many drinks containi ng alcohol do you have on a typical day when you are drinking? Patient does not drink 10/18/202 4 Q3: How often do you have si x or more drinks on one occasion? Never 04/28/2024 Overall Financial Resource Strain (CARDIA) Answe r Date Recorded How hard is it for you to pa y for the very basics like food, housing, medical care, and heating? Not hard at all 06/22/2024 PHQ-2 Answer Date Recorded Patient Health Questionnaire-2 Score 0 03/31/2024 [facility] - Occupational Stress Questionnaire Answer Date Recorded Do you feel stress - tense, restless, nervous, or anxious, or unable to sleep at night because your mind is troubled all the time - these days? Only a little 06/22/2024 Hunger Vital Sign Answer Date Recorded Within the past 12 months, y ou worried that your food would run out before you got the money to buy more. Never true 06/22/20 24 Within the past 12 months, t he food you bought just didn't last and you didn't have money to get more. Never true 06/22/2024 PRAPARE - Transportation Answer Date Re corded In the past 12 months, has l ack of transportation kept you from medical appointments or from getting medications? No 06/11 In the past 12 months, has l ack of transportation kept you from meetings, work, or from getting things needed for daily living? No 06/22/2024 Housing Stability Vital Sign Answer Geoff e Recorded In the last 12 months, was t here a time when you were not able to pay the mortgage or rent on time? No 04/04/2024 In the last 12 months, how many places have you lived? 1 04/04/2024 In the last 12 months, was t here a time when you did not have a steady place to sleep or slept in a jail (including now)? No 04/04/2024 Preston Depression Scale Answer Date Recorded Preston Depression Scale Total 4 06/25/2024 The thought of harming myself has occurred to me . Never 06/25/2024 Housing Stability Vital Sign Answer Geoff e Recorded In the last 12 months, was t here a time when you were not able to pay the mortgage or rent on time? No 06/22/2024 In the past 12 months, how m any times have you moved where you were living? 0 06/22/2024 At any time in the past 12 m [facility], were you homeless or living in a jail (including now)? No 06/22/2024 Comments No Sex and Gender Information Value Date Recorded Sex Assigned at Female 01/12/2024 7:53 PM CDT Legal Sex Female 12:09 PM CDT Gender Identity Female 01/12/2024 7:53 PM CDT Sexual Orientation Straight 01/12/2024 7: 53 PM CDT Last Filed Vital Signs Vital Sign Reading Time Taken Comments Blood Pressure 118/77 06/26/2024 8:25 AM LINER HELPER Pulse 75 06/26/2024 8:25 AM LINER HELPER Temperature 36.7 C (98.1 F) 06/26/2024 8:25 AM LINER HELPER Respiratory Rate 16 06/26/2024 8:25 AM LINER HELPER Oxygen Saturation 100% 06/26/2024 8:25 AM LINER HELPER Inhaled Oxygen Concentration 21% 06/24/2024 9 :45 PM LINER HELPER Weight 90.7 kg (200 lb) 06/22/2024 10:49 AM LINER HELPER Height 168.9 cm (5' 6.5) 06/22/2024 10:49 AM CS T Body Mass Index 31.8 06/22/2024 10:49 AM LINER HELPER Plan of Treatment Health Maintenance Due Date Last Done Comments HEPATITIS C SCREENING 09/07/2003 PNEUMOCOCCAL VACCINE (1 of 2 - PCV) 2004 HPV VACCINE (1 - 3-dose SCDM series) 2012 DEPRESSION SCREENING 07/12/2024 03/10/2024 COVID-19 VACCINE ( season) 2025 03/19/2022, 04/29/2021, 03/24/2021 INFLUENZA VACCINE (#1) 2025 05/13/2023, 2021 PAP with HPV 02/14/2029 02/15/2024 DTAP/TDAP/TD VACCINES (10 - Td or Tdap) 04/04/2034 04/04/2024, 08/21/2021, 08/21/2021, Additional history exists ZOSTER VACCINE (1 of 2) 09/12/2035 HIB VACCINE Completed 09/17/1989 HEPATITIS B VACCINE Completed 03/16/2001, 11/29/1999, 03/11/1996 HIV SCREENING Completed 04/04/2024, 12/16/2023 MENINGOCOCCAL (Group B) VACCINE SHARED DECISION-MAKING Aged Out No longer eligible based on patient's age to complete this topic MENINGOCOCCAL GROUPS A/C/Y/W VACCINE Aged Out No longer eligible based on patient's age to complete this topic Procedures Procedure Name Priority Date/Time Associated Diagnosis Comments HIV-1 HIV-2 ANTIBODY + HIV P24 AG PANEL Routine 04/04/2024 4:09 PM CDT Multigravida of advanced maternal age in second trimester PAP IG LB+HPV APTIMA Routine 02/15/2024 5:18 PM CDT Multigravida of advanced maternal age in second trimester from Last 3 Months or Most Recently Relevant to Health Maintenance Results * HIV-1 HIV-2 ANTIBODY + HIV P24 AG PANEL (04/04/2024 4:09 PM CDT) HIV1/2 Ab + P24 Ag Non Reactive Non Reactive 04/04/2024 5:21 PM CDT [facility] Blood BLOOD SPECIMEN / Unknown Venipuncture / Unknown 04/04/2024 4:09 PM CDT 04/04/2024 4:32 PM CDT Narrative [facility] - 04/04/2024 5:21 PM CDT No Laboratory evidence of HIV infection. Rebecca Torres MD LAB - CHEMISTRY ORDERAB LES Final Result [facility] [address] [place] [address] * (ABNORMAL) PAP IG LB+HPV APTIMA (02/15/2024 5:18 PM CDT) Diagnosis Comment 02/21/2024 7:07 PM CDT [facility] ([facility]) Comment:NEGATIVE FOR INTRAEP ITHELIAL LESION OR MALIGNANCY. Specimen Adequacy Comment 7:07 PM CDT [facility] ([facility]) Comment: Satisfactory for evaluation. Endocervical and/or squamous metaplastic cells (endocervical component) are present. Performed by Comment 02/21/2024 7:07 PM CDT [facility] ([facility]) Comment:Romina Olmos, Cyto technologist (ASCP) Comment . 02/21/2024 7:07 PM CDT [facility] ([facility]) Note Comment 02/21/2024 7:07 PM CDT [facility] ([facility]) Comment: The Pap smear is a screening test designed to aid in the detection of premalignant and malignant conditions of the uterine cervix. It is not a diagnostic procedure and should not be used as the sole means of detecting cervical cancer. Both false-positive and false-negative reports do occur. IGLBP CPT Code Automation Comment 02/21/2024 7:07 PM CDT [facility] ([facility]) Comment: This liquid based ThinPrep(R) pap test was screened with the use of an image guided system. Human papillomavirus Aptima Positive(A ) Negative 02/21/2024 7:07 PM CDT [facility] ([facility]) Comment: This nucleic acid amplification test detects fourteen high-risk HPV types (16,18,31,33,35,39,45,51,52,56,58,59,66,68) without differentiation. Pathology/Cytolo gy ENTIRE ENDOCERVIX / Unknown Collection / Unknown 02/15/2024 5:18 PM CDT 02/15/2024 5:28 PM CDT Narrative [facility] ([facility]) - 02/21/2024 7:07 PM CDT Performed at: 01 - [address] [id number] Grey Percher: Gely Trent MD, Phone: [phone] Performed at: 02 - [facility] [id number] Grey Percher: Gely Trent MD, Phone: [phone] Specimen Comment: No. of containers..01 ThinPrep Vial us Elgin Mcbride MD LAB - PATHOLOGY/CYTOLOG Y ORDERABLES Final Result [facility] ([facility]) [address] [place] [address] from Last 3 Months or Most Recently Relevant to Health Maintenance Insurance [facility] Advance Directives * Full Code (Latest Code Status on File) Date Activated Date Inactivated Comments 06/22/2024 9:24 AM 06/26/2024 1:11 PM Care Teams Information Specialist Relationship Specialty Start Date End Date Guerda Jimenez DO [address] [place] [address] PCP - General 12/15/17 Deneen Galo MD [address] [address] Resident Obstetrics and Gynecology 03/30/24
--- OUTSIDE RECORDS SUMMARY | 2025-06-14 22:37 | XMS_ITS | Clinical Summary ---
Author Organization [facility] Address [facility] [place] [address] Care Team Providers Care Weatherization Administrator Name Role Phone Zulma Mario NP Primary Care Provider [phone] Allergies Active Allergy Reactions Criticality Noted Date Comments Clindamycin Vomiting Low 03/15/2019 vomiting Medications albuterol sulfate HFA (PROAIR HFA) 108 (90 Base) MCG/ACT inhaler Inhale 2 puffs into the lungs every 4 (four) hours as needed for Wheezing or Shortness of breath. BEFORE TODAY SHE HAD NOT USED FOR 3 MONTHS 8 Active ASPIRIN LOW DOSE 81 MG tablet Take 81 mg by mouth daily. 0 Active metoprolol succinate ER 50 MG 24 hr tablet Take 50 mg by mouth daily. 0 Active fluticasone propionate 50 MCG/ACT nasal spray 2 Squirts by Nasal route daily. 8 Active methylPREDNISol one, GEETHA, 4 MG tablet 6 TABLETS ON DAY ONE, 5 TABLETS DAY TWO, 4 TABLETS DAY THREE, 3 TABLETS DAY FOUR, 2 TABLETS DAY FIVE, AND 1 TABLET DAY SIX 1 each 1 Active oxaprozin 600 MG tablet Take 1 tablet (600 mg total) by mouth 2 (two) times daily as needed (Pain. Please take with meals). 60 tablet 1 Active Family History Medical History Relation Comments COPD Mother Hypertension Mother Relation Status Comments Mother Alive Social History Tobacco Use Types Packs/Day Years Used Date Smoking Tobacco: Every Day Cigarettes Smokeless Tobacco: Never Alcohol Use Standard Drinks/Week Comments Yes 0 (1 standard drink = 0.6 oz pur e alcohol) occasionaly Comments No Sex and Gender Information Value Date Recorded Sex Assigned at Female 03/07/2025 3:02 PM CDT Legal Sex Female 8:26 PM CDT Gender Identity Not on file Sexual Orientation Not on file Last Filed Vital Signs Vital Sign Reading Time Taken Comments Blood Pressure 123/86 03/24/2021 2:00 AM CDT Pulse 58 03/24/2021 2:00 AM CDT Temperature 36.9 C (98.4 F) 03/23/2021 10:29 PM CDT Respiratory Rate 18 03/23/2021 10:29 PM CDT Oxygen Saturation 100% 03/24/2021 2:00 AM CDT Inhaled Oxygen Concentration - - Weight 73.1 kg (161 lb 2.5 oz) 03/23/2021 10:29 PM CDT Height 167.6 cm (5' 6) 03/23/2021 10:29 PM CDT Body Mass Index 26.01 03/23/2021 10:29 PM CDT Plan of Treatment Health Maintenance Due Date Last Done Comments Annual Physical 1988 Hepatitis C 09/12/2003 Pneumococcal Vaccine: Pediatrics (0 to 5 Years) and At-Risk Patients (6 to 49 Years) (1 of 2 - PCV) 2004 HPV Vaccines (1 - 3-dose SCDM series) 2012 COVID-19 Vaccine ( - season) 2025 Influenza Adult (#1) 2025 05/13/2023, 05/12/20 22 Cervical Cancer Screening Pap Smear (Age 30 to 64) Every 3 Years 09/22/2027 09/21/2024, 09/21/2024, 09/21/2024, Additional history exists Cervical Cancer Screening Pap with HPV Testing (Age 30 to 64) Every 5 Years 09/21/2029 09/21/2024 Cervical Cancer Screening with HPV 09/21/2029 DTaP, Tdap and Td Vaccines (6 - Td or Tdap) 04/04/2034 04/04/2024, 08/21/2021, 07/12/2011, Additional history exists Hepatitis B Vaccines Completed 03/16/2001, 11/29/1999, 03/11/1996 Hepatitis A Vaccines Aged Out No long er eligible based on patient's age to complete this topic Meningococcal B Vaccine Aged Out No l onger eligible based on patient's age to complete this topic Meningococcal Vaccine Aged Out No aleta jose elias eligible based on patient's age to complete this topic RSV Immunizations Under 20 Months Aged Out No longer eligible based on patient's age to complete this topic Procedures Procedure Name Priority Date/Time Associated Diagnosis Comments CYTOPATH CERV/VAG THIN LAYER Routine 11/27/2016 1:53 PM CDT from Last 3 Months or Most Recently Relevant to Health Maintenance Results * Cytopath Cerv/Vag Thin Layer (11/27/2016 1:53 PM CDT) COMMENT TOUCHWORKS TO EPIC CONVERSION Comment:Result Comment: NEGA TIVE FOR INTRAEPITHELIAL LESION AND MALIGNANCY. STATEMENT OF ADEQUACY: TOUCHWORKS TO EPIC CONVERSION Comment: Result Comment: Satisfactory for evaluation. Endocervical and/or squamous metaplastic cells (endocervical component) are present. COMMENT TOUCHWORKS TO EPIC CONVERSION Comment:Result Comment: Cain Hancock, Demand Equipment Repairer (ASCP) COMMENT . TOUCHWORKS TO EPIC CONVERSION NOTE TOUCHWORKS TO EPIC CONVERSION Comment: Result Comment: The Pap smear is a screening test designed to aid in the detection of premalignant and malignant conditions of the uterine cervix. It is not a diagnostic procedure and should not be used as the sole means of detecting cervical cancer. Both false-positive and false-negative reports do occur. . METHOD TOUCHWORKS TO EPIC CONVERSION Comment: Result Comment: This liquid based ThinPrep(R) pap test was screened with the use of an image guided system. PRIMARY DIAGNOSIS: T OUCHWORKS TO EPIC CONVERSION Comment:Result Comment: [email or web address] [id number] 11/27/2016 1:53 PM CDT 11/27/2016 1:53 PM CDT Narrative TOUCHWORKS TO EPIC CONVERSION - 12/01/2016 1:12 PM CDT Result Communication: No patient communication needed at this time us Guerda Jimenez DO PATHOLOGY/CYTOLOGY ORDERABLE S Final Result TOUCHWORKS TO EPIC CONVERSION from Last 3 Months or Most Recently Relevant to Health Maintenance Insurance [place] Care Teams Weatherization Administrator Relationship Specialty Start Date End Date Zulma Mario NP PCP - General Nurse Practitioner Family 10/05/22
--- OUTSIDE RECORDS SUMMARY | 2025-06-14 22:37 | XMS_ITS | Data Portability ---
Author Organization [facility] OFFICE Address [address] [place] [address] Care Team Providers Care Assistant Product Manager Name Role Phone NOMI CASTRO Primary Care Provider [phone] Assessment Encounter Date Assessment Date Assessment LastModified by Organization Details LastModified Time 08/07/2020 08/07/2020 Discussed with patient findings, diagnosis, and prognosis. Discussed evaluation and treatment options including risks and benefits with patient, and patient expressed understanding. The following interventions were recommended: heart healthy low-fat, low-sodium diet, avoid strenuous exercise pending completion of cardiovascular evaluation, maintain appropriate weight, avoidance of excessive alcohol consumption, reduction of caffeine and decongestant use, continue current medications, needs to keep LDL less than 100 and HDL more than 40, and medical follow-up as noted. [email or web address] Not available 08/06/2020 14:53:25 09/04/2020 09/04/2020 Discussed with patient findings, diagnosis, and prognosis. Discussed evaluation and treatment options including risks and benefits with patient, and patient expressed understanding. The following interventions were recommended: heart healthy low-fat, low-sodium diet, begin regular exercise,maintain appropriate weight, avoidance of excessive alcohol consumption, reduction of caffeine and decongestant use, continue current medications, needs to keep LDL less than 100 and HDL more than 40, and medical follow-up as noted. [email or web address] Not available 09/04/2020 12:56:51 02/09/2022 02/09/2022 Discussed with patient findings, diagnosis, and prognosis. Discussed evaluation and treatment options including risks and benefits with patient, and patient expressed understanding. The following interventions were recommended: heart healthy low-fat, low-sodium diet, avoid strenuous exercise pending completion of cardiovascular evaluation,mainta in appropriate weight, avoidance of excessive alcohol consumption, reduction of caffeine and decongestant use, continue current medications, needs to keep LDL less than 100 and HDL more than 40, and medical follow-up as noted. [email or web address] Not available 02/09/2022 17:20:39 04/10/2022 04/10/2022 Discussed with patient findings, diagnosis, and prognosis. Discussed evaluation and treatment options including risks and benefits with patient, and patient expressed understanding. The following interventions were recommended: heart healthy low-fat, low-sodium diet, continue regular exercise,maintain appropriate weight, avoidance of excessive alcohol consumption, reduction of caffeine and decongestant use, continue current medications, needs to keep LDL less than 100 and HDL more than 40, and medical follow-up as noted. [email or web address] Not available 04/10/2022 12:06:45 05/18/2022 05/18/2022 Discussed with patient findings, diagnosis, and prognosis. Discussed evaluation and treatment options including risks and benefits with patient, and patient expressed understanding. The following interventions were recommended: heart healthy low-fat, low-sodium diet, continue regular exercise,maintain appropriate weight, avoidance of excessive alcohol consumption, reduction of caffeine and decongestant use, continue current medications, needs to keep LDL less than 100 and HDL more than 40, and medical follow-up as noted. [email or web address] Not available 05/18/2022 16:57:03 Plan of Treatment Reminders Order Date Submit Date Provider Last Modified By Organization Details Last Modified Time Details Appointments None recorded. Lab None recorded. Referral None recorded. Procedures None recorded. Surgeries None recorded. Imaging None recorded. Medication Orders metoprolol succinate ER 50 mg tablet,ext ended release 24 hr 2020 021 INTERFACE [id number], [address] [place], [address], 13:42:33 aspirin 81 mg tablet,del ayed release 2020 021 INTERFACE [id number], [address] [place], [address], 13:45:33 Patient TargetsNo targets recorded. Patient Instructions Encounter Date Encounter Id Patient Instructions Last Modified By Organization Details Last Modified Time 08/07/2020 [id number] deciding about using medicines to quit smoking [email or web address] Not available 08/07/2020 13:42:31 Quitting Tobacco : Care Instructions [email or web address] Not available 08/07/2020 13:42:31 anemia: care instructions [email or web address] Not available 08/07/2020 13:42:31 chest pain: care instructions [email or web address] Not available 08/07/2020 13:42:31 fainting: care instructions [email or web address] Not available 08/07/2020 13:42:31 lightheadedness or faintness: care instructions Not available 08/07/2020 13:42:31 shortness of breath: care instructions Not available 08/07/2020 13:42:31 09/04/2020 [id number] chest pain: care instructions [email or web address] Not available 09/04/2020 13:01:18 deciding about using medicines to quit smoking [email or web address] Not available 09/04/2020 13:01:18 Quitting Tobacco : Care Instructions [email or web address] Not available 09/04/2020 13:01:18 sleep apnea: car e instructions [email or web address] Not available 09/04/2020 13:01:18 fainting: care instructions [email or web address] Not available 09/04/2020 13:01:18 lightheadedness or faintness: care instructions Not available 09/04/2020 13:01:18 anemia: care instructions [email or web address] Not available 09/04/2020 13:01:18 shortness of breath: care instructions [email or web address] Not available 09/04/2020 13:01:18 02/09/2022 [id number] chest pain: care instructions [email or web address] Not available 02/09/2022 17:24:10 deciding about using medicines to quit smoking [email or web address] Not available 02/09/2022 17:24:09 Quitting Tobacco : Care Instructions [email or web address] Not available 02/09/2022 17:24:09 sleep apnea: car e instructions [email or web address] Not available 02/09/2022 17:24:10 fainting: care instructions [email or web address] Not available 02/09/2022 17:24:09 lightheadedness or faintness: care instructions Not available 02/09/2022 17:24:09 anemia: care instructions [email or web address] Not available 02/09/2022 17:24:09 shortness of breath: care instructions [email or web address] Not available 02/09/2022 17:24:09 04/10/2022 [id number] deciding about using medicines to quit smoking [email or web address] Not available 04/10/2022 12:27:44 Quitting Tobacco : Care Instructions [email or web address] Not available 04/10/2022 12:27:44 anemia: care instructions [email or web address] Not available 04/10/2022 12:27:43 heart valve disease: care instructions [email or web address] Not available 04/10/2022 12:27:44 mitral valve prolapse: care instructions [email or web address] Not available 04/10/2022 12:27:44 chest pain: care instructions [email or web address] Not available 04/10/2022 12:27:44 sleep apnea: car e instructions [email or web address] Not available 04/10/2022 12:27:44 fainting: care instructions [email or web address] Not available 04/10/2022 12:27:44 lightheadedness or faintness: care instructions [email or web address] Not available 04/10/2022 12:27:44 high blood pressure: care instructions [email or web address] Not available 04/10/2022 12:27:44 learning about h igh blood pressure [email or web address] Not available 04/10/2022 12:27:44 shortness of breath: care instructions [email or web address] Not available 04/10/2022 12:27:44 05/18/2022 [id number] deciding about using medicines to quit smoking [email or web address] Not available 05/18/2022 17:06:46 Quitting Tobacco : Care Instructions Not available 05/18/2022 17:06:46 anemia: care instructions [email or web address] Not available 05/18/2022 17:06:47 heart valve disease: care instructions Not available 05/18/2022 17:06:46 mitral valve prolapse: care instructions [email or web address] Not available 05/18/2022 17:06:47 chest pain: care instructions [email or web address] Not available 05/18/2022 17:06:47 sleep apnea: car e instructions [email or web address] Not available 05/18/2022 17:06:47 fainting: care instructions [email or web address] Not available 05/18/2022 17:06:46 lightheadedness or faintness: care instructions [email or web address] Not available 05/18/2022 17:06:46 high blood pressure: care instructions [email or web address] Not available 05/18/2022 17:06:47 learning about h igh blood pressure [email or web address] Not available 05/18/2022 17:06:47 shortness of breath: care instructions [email or web address] Not available 05/18/2022 17:06:47 Reason for Referral None Reported. Results Created Date Observation Date Name Description Value Unit Range Abnormal Flag Note LastModifiedBy Organization Detail LastModifiedTime 08/08/19 21 08/07/2020 elect rocar diogr am No observ ation record ed. [email or web address] Not Available 2020 16:49:02 09/10/19 21 08/29/2020 stres s echoc ardio gram No observ ation record ed. [email or web address] Not Available 2020 12:34:17 02/11/20 22 02/09/2022 elect rocar diogr am No observ ation record ed. [email or web address] Not Available 2021 10:55:25 03/24/20 22 03/13/2022 exerc ise stres s echoc ardio gram No observ ation record ed. [email or web address] Not Available 2021 16:28:35 03/26/20 22 03/03/2022 sleep study No observ ation record ed. [email or web address] Not Available 2021 12:53:28 04/28/20 22 03/18/2022 event monit or No observ ation record ed. [email or web address] Not Available 2021 12:51:02 Result Notes None recorded. Problems Name Problem SNOMED Code Status Onset Date Resolution Date Notes Provider Name and Address Organization Details Recorded Time Asthma 968669431 Active 2016 Melanie timmons [place] - [facility] 7 15:53:01 Anxiety 88095946 Active 2016 PEARL Thompson [facility] 7 15:53:11 Anemia 714562247 Active 2016 Melanie timmons[place] - [facility] 7 15:53:17 Dyspnea 173407691 Active 2016 Melanie timmons[place] - [facility] 7 15:53:25 Nausea 787213414 Active 2016 Melanie timmons[place] - [facility] 7 15:53:44 Tight chest 02687531 Active 2016 Melanie timmons, [place] - [facility] 7 15:54:17 Backache 457178363 Active 2016 Melanie timmons[place] - [facility] 7 15:54:29 Vertigo 538976512 Active 2016 Melanie timmons[place] - [facility] 7 15:54:52 Fatigue 40556495 Active 2016 Melanie timmons, [facility] 7 15:55:05 Night sweats 42098957 Active 2016 Melanie timmons, [place] - [facility] 7 15:55:12 Muscle weakness 55955844 Active 2016 Melanie timmons[place] - [facility] 7 15:55:25 Syncope 388248702 Active 2016 Melanie timmons, [facility] 7 16:03:41 Elevated blood-pressure reading without diagnosis of hypertension 021978046 Active 2016 Robby Chikis [place], [place] - [facility] 7 11:49:59 Cardiovascular stress test abnormal 331062931 Active 2016 Lonnie Sosa [facility], [place] - [facility] 7 15:27:33 Tobacco dependence syndrome 46860074 Active 2017 Robby Diop [place], [place] - [facility] 8 11:12:47 Coronary arterioscleros is 37301224 Active 2017 Robby Diop [place], [place] - [facility] 8 18:17:47 Chest pain 91414337 Active 2019 Robby timmons [facility] 0 13:34:34 Obstructive sleep apnea syndrome 70127615 Active 2020 Robby timmons [facility] 1 12:51:37 Dyspnea on exertion 39639557 [facility] 17:12:33 Blood pressure outside reference range 21696813 Active 2021 Robby timmons [facility] 2 17:18:02 Mitral valve prolapse 914145866 [facility] 12:07:58 Essential hypertension 95797227 [facility] 12:23[facility]39 Problem Notes None recorded. Medical Equipment None Reported. Allergies No known drug allergies Medications Name Sig Start Date Stop Date Status Note LastModified by Organization Details LastModified Time [facility] aspirin low dose 81 mg [facility] 07/24 completed Not Available Not Available Not Available prednison e 10 mg tabs 07/24 completed Not Available Not Available Not Available cyclobenz aprine hydrochlo ride 10 mg tabs 07/24 completed Not Available Not Available Not Available aspirin 81 mg [facility] 07/24 completed Not Available Not Available Not Available ibuprofen 600 mg tabs 07/24 completed Not Available Not Available Not Available metoprolo l succinate er 50 mg tb24 07/24 completed Not Available Not Available Not Available cyclobenz aprine 10 mg tablet 02/09 completed pt not taking 09/04/20 sp Not Available Not Available Not Available amoxicill in 500 mg capsule TAKE 2 STAT THEN 1 FOUR TIMES DAILY UNTIL ALL TAKEN active no longer take Not Available Not Available Not Available prednison e 10 mg tablet 06/02 completed Not Available Not Available Not Available clindamyc in HCl 300 mg capsule 10/13 completed Not Available Not Available Not Available cetirizin e 10 mg tablet TAKE 1 TABLET BY MOUTH EVERY DAY active Not Available Not Available No t Available ibuprofen 800 mg tablet Take 1 tablet every 6-8 hours by oral route as needed. 07/24 completed Not Available Not Available Not Available metoprolo l succinate ER 50 mg tablet,ex tended release 24 hr TAKE 1 TABLET BY MOUTH EVERY DAY 2022 active Not Available Not Available Not Avai lable hydrocodo ne 5 mg-acetam inophen 325 mg tablet 10/13 completed Not Available Not Available Not Available topiramat e 25 mg tablet Take 1 tablet twice a day by oral route as directed . 07/24 completed No longer take it 08/18/19 20 sm Not Available Not Available Not Available aspirin 81 mg tablet,de layed release TAKE 1 TABLET BY MOUTH EVERY DAY 2020 active Not Available Not Available Not Avai lable ketorolac 10 mg tablet TAKE 1 TABLET BY MOUTH EVERY 6 HOURS NEEDED FOR PAIN active Not Available Not Available No t Available famotidin e 20 mg tablet Take 1 tablet twice a day by oral route. 07/24 completed No longer take it sm 08/18/19 20 sm Not Available Not Available Not Available meclizine 25 mg tablet TAKE 1 TABLET BY MOUTH THREE TIMES DAILY NEEDED FOR DIZZINES S active Not Available Not Available No t Available cephalexi n 500 mg capsule TAKE 1 CAPSULE BY MOUTH FOUR TIMES A DAY FOR 7 DAYS 02/09 completed Not Available Not Available Not Available erythromy adrian 5 mg/gram (0.5 %) eye ointment 02/09 completed Not Available Not Available Not Available oseltamiv ir 75 mg capsule 12/18 completed Not Available Not Available Not Available omeprazol e 20 mg capsule,d elayed release Take 1 capsule every day by oral route as directed . 06/02 completed Pt is no more on this medicati on 06/02/19 sm Not Available Not Available Not Available metoprolo l succinate ER 25 mg tablet,ex tended release 24 hr TAKE 1 TABLET BY MOUTH EVERY DAY 05/02 completed Not Available Not Available Not Available ibuprofen 600 mg tablet TAKE 1 TABLET BY MOUTH EVERY 6 HOURS NEEDED FOR PAIN 02/09 completed pt no longer taking 09/04/20 sp Not Available Not Available Not Available levofloxa adrian 500 mg tablet 12/18 completed Not Available Not Available Not Available fluticaso ne propionat e 50 mcg/actua tion nasal spray,lucinda pension INSTILL 2 SPRAYS BY INTRANAS AL ROUTE EVERY DAY active Not Available Not Available No t Available Denta 5000 Plus 1.1 % cream USE IN PLACE OF REGULAR TOOTHPAS TE TWICE A DAY DO NOT SWALLOW 02/09 completed Not Available Not Available Not Available hydrocodo ne 5 mg-ibupro fen 200 mg tablet TAKE 1 TABLET BY MOUTH THREE TIMES DAILY NEEDED FOR PAIN active Not Available Not Available No t Available ProAir HFA 90 mcg/actua tion aerosol inhaler Inhale 2 puffs every 4 hours by inhalati on route as needed. 02/09 completed Not Available Not Available Not Available bupropion HCl 150 mg tablet,12 hr sustained -release( smoking deterrent ) TAKE 1 TABLET BY MOUTH TWICE A DAY active Not Available Not Available No t Available albuterol sulf 90 mcg/actua tion breath activated powder inhaler,s ensor Inhale 2 puffs every 4 hours by inhalati on route as needed. active Not Available Not Available No t Available Vitals Date Recorded Body height Body mass index (BMI) Body weight Body temperature Heart rate Systolic And Diastolic Provider Name and Address Organization Details Last Updated DateTime 1 168.91 cm 22.9 kg/m2 85203.3 g 97 [degF] 85 /min 141/72 mm[Hg] Rosetta Cerda [facility] 1 12:57:32 Date Recorded Body height Body mass index (BMI) Body weight Heart rate Oxygen saturation Body temperature Systolic And Diastolic Provider Name and Address Organization Details Last Updated DateTime 1 168.91 cm 23.8 kg/m2 25588.8 6 g 88 /min 99 % 98.1 [degF] 124/82 mm[Hg] ARIANNA SCOTT [facility] 1 12:36:01 Date Recorded Body height Body mass index (BMI) Body weight Heart rate Respiratory rate Oxygen saturation Systolic And Diastolic Provider Name and Address Organization Details Last Updated DateTime 2 167.64 cm 25.5 kg/m2 46114.5 9 g 66 /min 16 /min 95 % 124/86 mm[Hg] Princess Byrnes [facility] 2 16:18:53 Date Recorded Body height Body mass index (BMI) Body weight Heart rate Oxygen saturation Systolic And Diastolic Provider Name and Address Organization Details Last Updated DateTime 2 167.64 cm 26.3 kg/m2 33844.5 6 g 79 /min 94 % 120/82 mm[Hg] Yodit Cordoba [facility] 2 11:16:27 Date Recorded Body height Body mass index (BMI) Body weight Heart rate Oxygen saturation Systolic And Diastolic Provider Name and Address Organization Details Last Updated DateTime 2 167.64 cm 27.4 kg/m2 21102.7 g 62 /min 96 % 124/68 mm[Hg] Silvia More [facility] 2 16:06:14 Social History Question Answer Notes LastModified by [employer] Details LastModified Time Tobacco Smoking Status Former Smoker Jess Sophia [facility] 12/09/2016 17:29:51 What Is Your Level Of Caffeine Consumption? Occasional [email or web address] Information not available 12/09/2016 How Much Tobacco Do You Chew? None [email or web address] Information not available 12/09/2016 What Type Of Diet Are You Following? REGULAR [email or web address] Information not available 12/09/2016 Which Illicit Or Recreational Drugs Have You Used? No [email or web address] Information not available 12/09/2016 Live Alone Or With Others? With Others [email or web address] Information not available 12/09/2016 Marital Status Informatio n not available 12/09/2016 What Was The Date Of Your Most Recent Tobacco Screening? 10/26/2018 Information not available 02/02/2019 How Many Children Do You Have? 0 Information not available 12/09/2016 How Much Tobacco Do You Smoke? No [email or web address] Information not available 12/09/2016 General Stress Level High [email or web address] Information not available 12/09/2016 Sex: Unknown Functional Status Question Answer Note LastModified by [employer] Details LastModified Time What is your level of alcohol consumption? Occasional [email or web address] Information not available 12/09/2016 Do you or have you ever used smokeless tobacco? Former smokeless tobacco user Information not available 08/06/2020 What is your occupation? [place] [email or web address] Information not available 12/09/2016 Do you or have you ever used e-cigarettes or vape? Never used electronic cigarettes Information not available 08/06/2020 What is your exercise level? None [email or web address] Information not available 12/09/2016 Mental Status None recorded. Family History Relationship Description Onset Age of this Age Resolved Age Notes LastModified by Organization Details LastModified Time Maternal Grandmother Myocardial infarction 48 [email or web address] Not available 12/09 18:45:30 Maternal Grandmother Diabetes mellitus [email or web address] Not available 2016 17:28:51 Maternal Grandmother Hypertensive disorder [email or web address] Not available 2016 17:29:37 Maternal Grandmother Hypercholest erolemia Not available 2016 17:29:45 Maternal Aunt Diabetes mellitus Not available 2016 17:28:51 Maternal Aunt Hypertensive disorder [email or web address] Not available 2016 17:29:37 Mother Diabetes mellitus [email or web address] Not available 2016 17:28:51 Mother Hypertensive disorder [email or web address] Not available 2016 17:29:37 Maternal Uncle Hypertensive disorder Not available 2016 17:29:37 Medical History Condition Response Coronary Artery Disease Y Anemia Y Depression Y Asthma Y Sleep Apnea Y Gynecological HistoryNo gynecological history recorded. Obstetrics History GPAL:G 0 P 0 0 0 0 Past Encounters Encounter ID Performer Location Encounter Start Date Encounter Closed Date Diagnosis/Indication Diagnosis SNOMED-CT Code Diagnosis ICD10 Code Diagnosis IMO Codes Diagnosis Note [id number] Jeff Ulloa MD [facility] [address] [place] [id number] 12/09/2016 17:21:24 12/11/2016 11:45:31 Dyspnea 254337701 R06.00 No regular meds for asthma since childhood. Off inhalers for 7 years. Pt to f/u with PCP for re-initiat ion of inhalers in the event untreated reactive airways disease is contributi ng to her symptom complex. Syncope 282182957 R55 Recurrent syncope with associatio n of chest pain and dyspnea. Sense of palpitatio ns and lightheade dness today associated with intermitte nt ectopy on examinatio n of pulse today. Patient presents with chest pain with atypical features, with associated recurrent syncope and exertional dyspnea which can be an anginal equivalent . Given the history, exam findings and high cardiac risk factors including family history of premature CAD (grandmoth er with CO at 48), history of former recent tobacco use (quit 08/2016), asthma, anemia, I feel additional investigat ion is warranted. I have made arrangemen ts in the near future for an exercise stress nuclear test (patient has already had a recent transthora cic echo and is limited by exertional dyspnea).. The procedure was discussed with the patient, and risks, benefits, and alternativ e options were explained. Appropriat e labwork has not been performed recently, therefore I have made arrangemen ts for further testing: CBC, CMP, Mg, TSH with reflex, FLP. I have asked the patient to curtail exercise and activities until our investigat ion is complete. I have made no adjustment s to the present medical regimen. Obtain 24 hour Holter given her irregular tachypalpi tations both with syncope and occurring daily. Anemia 073203979 D64.9 Obtain f/u CBC. [id number] Jeff Ulloa MD [facility] [place] [address] 12/28/2016 11:01:53 12/29/2016 08:18:28 Syncope 685330153 R55 No recurrent syncope but with continuing dizziness, chest pain, and dyspnea. Had Treadmill Nuclear Stress Test 12/18/16: Positive stress test for ischemia. Normal LV systolic function. Abnormal stress test. Reversible defect consistent with ischemia in wilfrido-sep neda area, which is small and mild. No previous study to compare. Exercise tolerance is average. LVEF 59%. Had Had 24 hour Holter 12/10/16: Symptoms of palpitatio ns, dizziness, and chest tightness correlated with NSR, sinus arrhythmia , and sinus tachycardi a. No PACs or PVCs. Discussed advantages and disadvanta ges, risks and benefits of early invasive therapy for evaluation and management of coronary artery disease vs. optimal medical therapy alone initially. Patient expresses understand ing and is willing to engage in a trial of medical therapy for possible mild CAD. Begin ASA 81 mg qd. Pt reports considerin g , so avoiding statin, beta-block er, or diltiazem. Obtain 30 day event monitor. Begin exercise with walking. Begin Pepcid 20 mg bid. Dyspnea 115954906 R06.00 No regular meds for asthma since childhood. Off inhalers for 7 years. Pt to f/u with PCP for re-initiat ion of inhalers in the event untreated reactive airways disease is contributi ng to her symptom complex. Consider PFTs. Anemia 825329368 D64.9 Obtain f/u CBC. Elevated blood-pressure reading without diagnosis of hypertension 012825548 R03.0 Blood pressure is elevated today, but this is only one reading, will keep close follow up, and consider medication change if blood pressure is still elevated next visit. [id number] Robby Diop MD [facility] [place] [address] 02/10/2017 11:23:17 02/10/2017 13:53:08 Syncope 582377018 R55 No recurrent syncope and will less dizziness and dyspnea. Had Treadmill Nuclear Stress Test 12/18/16: Positive stress test for ischemia. Normal LV systolic function. Abnormal stress test. Reversible defect consistent with ischemia in wilfrido-sep neda area, which is small and mild. No previous study to compare. Exercise tolerance is average. LVEF 59%. Had Had 24 hour Holter 12/10/16: Symptoms of palpitatio ns, dizziness, and chest tightness correlated with NSR, sinus arrhythmia , and sinus tachycardi a. No PACs or PVCs. Discussed advantages and disadvanta ges, risks and benefits of early invasive therapy for evaluation and management of coronary artery disease vs. optimal medical therapy alone initially. Patient expresses understand ing and is willing to engage in a trial of medical therapy for possible mild CAD. Begin ASA 81 mg qd. Pt reports considerin g , so avoiding statin, beta-block er, or diltiazem. Obtained 30 day event monitor, with symptoms correlatin g with NSR and sinus tachycardi a. Increase exercise with walking. Begin Pepcid 20 mg bid, with improvemen t in chest pain. Elevated blood-pressure reading without diagnosis of hypertension [id number] R03.0 Blood pressure is elevated previously , but normal today and at home per pt report; will keep close follow up. Dyspnea [id number] R06.00 No regular meds for asthma since childhood. Off inhalers for 7 years. Pt to f/u with PCP or pulmonolog ist for re-initiat ion of inhalers in the event untreated reactive airways disease is contributi ng to her symptom complex. Consider PFTs/not completed. Anemia [id number] D64.9 12/25/16 HB 11.0, HT 34.4 [id number] Robby Diop MD [facility] [address] [place] [address] 10/13/2017 12:18:53 11/10/2017 09:49:15 Syncope [id number] R55 Recurrent syncope in setting of alcohol and nausea, possible vasovagal episode. With less dizziness, chest pain, and dyspnea. Had Treadmill Nuclear Stress Test 12/18/16: Positive stress test for ischemia. Normal LV systolic function. Abnormal stress test. Reversible defect consistent with ischemia in [place] area, which is small and mild. No previous study to compare. Exercise tolerance is average. LVEF 59%. Consider cardiac CTA if symptoms progress. Had EKG in office 10/13/17 with and without chest pressure and dizziness, revealing NSR and no acute changes. Obtained 30 day event monitor, with symptoms correlatin g with NSR and sinus tachycardi a. Had Event Monitor 12/29/16: Unremarkab le event monitor. Symptoms did not correlate to any arrhythmia . The symptoms correlated with normal sinus rhythm and sinus tachycardi a. Had Had 24 hour Holter 12/10/16: Symptoms of palpitatio ns, dizziness, and chest tightness correlated with NSR, sinus arrhythmia , and sinus tachycardi a. No PACs or PVCs. Discussed advantages and disadvanta ges, risks and benefits of early invasive therapy for evaluation and management of coronary artery disease vs. optimal medical therapy alone initially. Patient expresses understand ing and is willing to engage in a trial of medical therapy for possible mild CAD. Begin ASA 81 mg qd. Pt reports considerin g , so avoiding statin, beta-block er, or diltiazem. Increase exercise frequency. Begin Pepcid 20 mg bid, with improvemen t in chest pain. Obtain carotid U/S. Elevated blood-pressure reading without diagnosis of hypertension [id number] R03.0 Blood pressure is elevated previously , but normal today and at home per pt report; will keep close follow up. Dyspnea [id number] R06.00 No regular meds for asthma since childhood. Previously , off inhalers for [address] Grant pulmonolog ist with re-initiat ion of inhalers in the event untreated reactive airways disease is contributi ng to her symptom complex. Had PFTs per Dr. Grant. Anemia [id number] D64.9 12/25/16 HB 11.0, HT 34.4 Tight chest [id number] R07 .89 For tachypalpi tations associated with chest tightness, began metoprolol succinate 25 mg qd 09/01/17. Patient informed this will need to be tapered to off if she becomes . Tachypalpi tations improved on metoprolol . [id number] Robby Diop MD [facility] [address] [place] [address] 12/13/2017 10:27:42 12/13/2017 15:04:12 Syncope [id number] R55 No recurrence . Prior syncope in setting of alcohol and nausea, possible vasovagal episode. With less dizziness, chest pain, and dyspnea. Had Treadmill Nuclear Stress Test 12/18/16: Positive stress test for ischemia. Normal LV systolic function. Abnormal stress test. Reversible defect consistent with ischemia in [place] area, which is small and mild. No previous study to compare. Exercise tolerance is average. LVEF 59%. Consider cardiac CTA if symptoms progress. Had EKG in office 10/13/17 with and without chest pressure and dizziness, revealing NSR and no acute changes. Obtained 30 day event monitor, with symptoms correlatin g with NSR and sinus tachycardi a. Had Event Monitor 12/29/16: Unremarkab le event monitor. Symptoms did not correlate to any arrhythmia . The symptoms correlated with normal sinus rhythm and sinus tachycardi a. Had Had 24 hour Holter 12/10/16: Symptoms of palpitatio ns, dizziness, and chest tightness correlated with NSR, sinus arrhythmia , and sinus tachycardi a. No PACs or PVCs. Discussed advantages and disadvanta ges, risks and benefits of early invasive therapy for evaluation and management of coronary artery disease vs. optimal medical therapy alone initially. Patient expresses understand ing and is willing to engage in a trial of medical therapy for possible mild CAD. Continue ASA 81 mg qd. Began metoprolol succinate 25 mg qd 12/01/17. Pt reports considerin g , so will need to stop beta-block er if actively pursued. Increase exercise frequency. Begin Pepcid 20 mg bid, with improvemen t in chest pain. Had US, Carotid Artery 10/26/17 : Antegrade flow noted in both vertebral arteries. Very mild bilateral internal carotid artery stenosis with less than 15% diameter stenosis. Elevated blood-pressure reading without diagnosis of hypertension [id number] R03.0 Blood pressure is elevated previously , but normal today and at home per pt report; will keep close follow up. Dyspnea [id number] R06.00 No regular meds for asthma since childhood. Previously , off inhalers for [address] Grant pulmonolog ist with re-initiat ion of inhalers in the event untreated reactive airways disease is contributi ng to her symptom complex. Had PFTs per Dr. Grant. Anemia [id number] D64.9 12/25/16 HB 11.0, HT 34.4 Tight chest 61481544 R07 .89 For tachypalpi tations associated with chest tightness, began metoprolol succinate 25 mg qd 09/01/17. Patient informed this will need to be tapered to off if she becomes . Tachypalpi tations improved on metoprolol . Had 12/25/16: TSH 1.06. Consider GI evaluation for reflux or esophageal disease given difficulty getting food down. Had Treadmill Nuclear Stress Test 12/18/16: Positive stress test for ischemia. Normal LV systolic function. Abnormal stress test. Reversible defect consistent with ischemia in [place] area, which is small and mild. No previous study to compare. Exercise tolerance is average. LVEF 59%. Patient presents with chest pain with atypical features with exertional dyspnea which can be an anginal equivalent and dizziness with walking. Given the history, exam findings and high cardiac risk factors with abnormal stress test, I feel additional investigat ion is warranted. I have made arrangemen ts in the near future for a cardiac CT angiogram to evaluate for any CAD or structural heart disease.. The procedure was discussed with the patient, and risks, benefits, and alternativ e options were explained. Appropriat e labwork has been performed recently, therefore I have not made arrangemen ts for further testing. I have asked the patient to curtail exercise and activities until our investigat ion is complete. I have made no adjustment s to the present medical regimen. Tobacco de pendence syndrome [id number] F17.200 Pt resumed smoking. Cessation recommende d to minimize vasospasm. [id number] Robby Diop MD [facility] [place] [address] 05/02/2018 16:44:44 05/02/2018 18:27:19 Tight chest [id number] R07.89 For tachypalpi tations associated with chest tightness, began metoprolol succinate 25 mg qd 09/01/17. Patient informed this will need to be tapered to off if she becomes . Tachypalpi tations improved on metoprolol . Had 12/25/16: TSH 1.06. Had GI evaluation with findings of gastritis, improved on omeprazole . Had Treadmill Nuclear Stress Test 12/18/16: Positive stress test for ischemia. Normal LV systolic function. Abnormal stress test. Reversible defect consistent with ischemia in [place] area, which is small and mild. No previous study to compare. Exercise tolerance is average. LVEF 59%. Had cardiac CTA done in 01/07/18 showed mild CAD (<25% stenosis) LAD, Localized atelectasi s. Syncope [id number] R55 No recurrence . Prior syncope in setting of alcohol and nausea, possible vasovagal episode. With less dizziness, chest pain, and dyspnea. Had EKG in office 10/13/17 with and without chest pressure and dizziness, revealing NSR and no acute changes. Obtained 30 day event monitor, with symptoms correlatin g with NSR and sinus tachycardi a. Had Event Monitor 12/29/16: Unremarkab le event monitor. Symptoms did not correlate to any arrhythmia . The symptoms correlated with normal sinus rhythm and sinus tachycardi a. Had Had 24 hour Holter 12/10/16: Symptoms of palpitatio ns, dizziness, and chest tightness correlated with NSR, sinus arrhythmia , and sinus tachycardi a. No PACs or PVCs. Continue ASA 81 mg qd. Began metoprolol succinate 25 mg qd 12/01/17. Increased to metoprolol succinate 50 mg qd 05/02/18 for elevated resting HR and palpitatio ns. Pt reports considerin g , so will need to stop beta-block er if actively pursued. Increase exercise frequency. Had US, Carotid Artery 10/26/17 : Antegrade flow noted in both vertebral arteries. Very mild bilateral internal carotid artery stenosis with less than 15% diameter stenosis. Has appointmen t with Neuro for EEG and MRI. Elevated blood-pressure reading without diagnosis of hypertension [id number] R03.0 Blood pressure is elevated previously , but normal today and at home per pt report; will keep close follow up. BP diary. Dyspnea [id number] R06.00 No regular meds for asthma since childhood. Previously , off inhalers for [address] Grant pulmonolog ist with re-initiat ion of inhalers in the event untreated reactive airways disease is contributi ng to her symptom complex. Had PFTs per Dr. Grant. Anemia [id number] D64.9 Had 03/19/18: hgb 9.7 Tobacco de pendence syndrome 61420671 F17.200 Pt resumed smoking. Cessation recommende d to minimize vasospasm. Coronary arteriosclerosis [id number] I25.10 Mild. Had cardiac CTA done in 01/07/18 showed mild CAD (<25% stenosis LAD), Localized atelectasi s. Continue ASA. Needs to keep LDL less than 70, and HDL more than 40. Had 12/25/16: LDL 72. Obtain FLP. [id number] Robby Diop MD [facility] [address] [place] [address] 10/26/2018 16:22:14 10/26/2018 18:10:11 Tight chest [id number] R07.89 For tachypalpi tations associated with chest tightness, began metoprolol succinate 25 mg qd 09/01/17. Patient informed this will need to be tapered to off if she becomes . Tachypalpi tations improved on metoprolol . Had 12/25/16: TSH 1.06. Had GI evaluation with findings of gastritis, improved on omeprazole . Had Treadmill Nuclear Stress Test 12/18/16: Positive stress test for ischemia. Normal LV systolic function. Abnormal stress test. Reversible defect consistent with ischemia in [place] area, which is small and mild. No previous study to compare. Exercise tolerance is average. LVEF 59%. Had cardiac CTA done in 01/07/18 showed mild CAD (<25% stenosis) LAD, Localized atelectasi s. Syncope [id number] R55 No recurrence . Prior syncope in setting of alcohol and nausea, possible vasovagal episode. With less dizziness, chest pain, and dyspnea. Had EKG in office 10/13/17 with and without chest pressure and dizziness, revealing NSR and no acute changes. Obtained 30 day event monitor, with symptoms correlatin g with NSR and sinus tachycardi a. Had Event Monitor 12/29/16: Unremarkab le event monitor. Symptoms did not correlate to any arrhythmia . The symptoms correlated with normal sinus rhythm and sinus tachycardi a. Had Had 24 hour Holter 12/10/16: Symptoms of palpitatio ns, dizziness, and chest tightness correlated with NSR, sinus arrhythmia , and sinus tachycardi a. No PACs or PVCs. Continue ASA 81 mg qd. Began metoprolol succinate 25 mg qd 12/01/17. Increased to metoprolol succinate 50 mg qd 05/02/18 for elevated resting HR and palpitatio ns. Pt reports considerin g , so will need to stop beta-block er if actively pursued. Increase exercise frequency. Had US, Carotid Artery 10/26/17 : Antegrade flow noted in both vertebral arteries. Very mild bilateral internal carotid artery stenosis with less than 15% diameter stenosis. Had appointmen t with Neuro for EEG and MRI.Had MRI/MRA brain,neck 05/12/18 ([facility]): no carotid or vertebral stenosis, unremarkab le.Had EEG ([facility]) 06/05/19: result pending. Coronary arteriosclerosis [id number] I25.10 Mild. Had cardiac CTA done in 01/07/18 showed mild CAD (<25% stenosis LAD), Localized atelectasi s. Continue ASA. Needs to keep LDL less than 70, and HDL more than 40. Had 06/02/18: LDL 67. Elevated blood-pressure reading without diagnosis of hypertension 604769884 R03.0 Blood pressure is elevated previously , but normal today and at home per pt report; will keep close follow up. BP diary <120/70-80 s. Dyspnea 484686508 R06.00 No regular meds for asthma since childhood. Previously , off inhalers for [address] Grant pulmonolog ist with re-initiat ion of inhalers prn in the event untreated reactive airways disease is contributi ng to her symptom complex. Had PFTs per Dr. Grant. Anemia [id number] D64.9 Had 03/19/18: hgb 9.7 Tobacco de pendence syndrome 74661421 F17.200 Pt resumed smoking. Cessation recommende d to minimize vasospasm. [id number] MD [facility] [address] [place] [address] 06/02/2019 11:58:24 06/02/2019 14:39:33 Tight chest 59773364 R07.89 For tachypalpi tations associated with chest tightness, began metoprolol succinate 25 mg qd 09/01/17. Patient informed this will need to be tapered to off if she becomes . Tachypalpi tations improved on metoprolol . Had 12/25/16: TSH 1.06. Had GI evaluation with findings of gastritis, improved on omeprazole . Had Treadmill Nuclear Stress Test 12/18/16: Positive stress test for ischemia. Normal LV systolic function. Abnormal stress test. Reversible defect consistent with ischemia in [place] area, which is small and mild. No previous study to compare. Exercise tolerance is average. LVEF 59%. Had cardiac CTA done in 01/07/18 showed mild CAD (<25% stenosis) LAD, Localized atelectasi s. Syncope [id number] R55 No recurrence . Prior syncope in setting of alcohol and nausea, possible vasovagal episode. With less dizziness, chest pain, and dyspnea. Had EKG in office 10/13/17 with and without chest pressure and dizziness, revealing NSR and no acute changes. Obtained 30 day event monitor, with symptoms correlatin g with NSR and sinus tachycardi a. Had Event Monitor 12/29/16: Unremarkab le event monitor. Symptoms did not correlate to any arrhythmia . The symptoms correlated with normal sinus rhythm and sinus tachycardi a. Had Had 24 hour Holter 12/10/16: Symptoms of palpitatio ns, dizziness, and chest tightness correlated with NSR, sinus arrhythmia , and sinus tachycardi a. No PACs or PVCs. Continue ASA 81 mg qd. Began metoprolol succinate 25 mg qd 12/01/17. Increased to metoprolol succinate 50 mg qd 05/02/18 for elevated resting HR and palpitatio ns. Pt reports considerin g , so will need to stop beta-block er if actively pursued. Increase exercise frequency. Had US, Carotid Artery 10/26/17 : Antegrade flow noted in both vertebral arteries. Very mild bilateral internal carotid artery stenosis with less than 15% diameter stenosis. Had appointmen t with Neuro for EEG and MRI.Had MRI/MRA brain,neck 05/12/18 ([facility]): no carotid or vertebral stenosis, unremarkab le.Had EEG ([facility]) 06/05/19: result pending. For recurrent palpitatio ns, obtain 24 hour Holter. Obtain TSH, CMP, Mg, CBC. Coronary arteriosclerosis [id number] I25.10 Mild. Had cardiac CTA done in 01/07/18 showed mild CAD (<25% stenosis LAD), Localized atelectasi s. Continue ASA. Needs to keep LDL less than 70, and HDL more than 40. Had 06/02/18: LDL 67. Obtain FLP. Elevated blood-pressure reading without diagnosis of hypertension 837537149 R03.0 Blood pressure is variably elevated previously and today. BP diary. Dyspnea 038825314 R06.00 No regular meds for asthma since childhood. Previously , off inhalers for [address] Grant pulmonolog ist with re-initiat ion of inhalers prn in the event untreated reactive airways disease is contributi ng to her symptom complex. Had PFTs per Dr. Grant. Anemia 256220033 D64.9 Had 03/19/18: hgb 9.7 Tobacco de pendence syndrome 99542768 F17.200 Pt resumed smoking. Cessation recommende d to minimize vasospasm. [id number] MD [facility] [address] [place] [address] 08/18/2019 12:29:16 08/18/2019 13:51:29 Coronary arteriosclerosis 30413568 I25.10 Mild. Had cardiac CTA done in 01/07/18 showed mild CAD (<25% stenosis LAD), Localized atelectasi s. Continue ASA. Needs to keep LDL less than 70, and HDL more than 40. Had 06/02/18: LDL 67. Had LIPID 06/23/2019 TR 31 CH 138 HDL 72 LDL 60 . Syncope [id number] R55 No recurrence . Prior syncope in setting of alcohol and nausea, possible vasovagal episode. With less dizziness, chest pain, and dyspnea. Had EKG in office 10/13/17 with and without chest pressure and dizziness, revealing NSR and no acute changes. Obtained 30 day event monitor, with symptoms correlatin g with NSR and sinus tachycardi a. Had Event Monitor 12/29/16: Unremarkab le event monitor. Symptoms did not correlate to any arrhythmia . The symptoms correlated with normal sinus rhythm and sinus tachycardi a. Had Had 24 hour Holter 12/10/16: Symptoms of palpitatio ns, dizziness, and chest tightness correlated with NSR, sinus arrhythmia , and sinus tachycardi a. No PACs or PVCs. Continue ASA 81 mg qd. Began metoprolol succinate 25 mg qd 12/01/17. Increased to metoprolol succinate 50 mg qd 05/02/18 for elevated resting HR and palpitatio ns. Pt reports considerin g , so will need to stop beta-block er if actively pursued. Had US, Carotid Artery 10/26/17 : Antegrade flow noted in both vertebral arteries. Very mild bilateral internal carotid artery stenosis with less than 15% diameter stenosis. Had appointmen t with Neuro for EEG and MRI.Had MRI/MRA brain,neck 05/12/18 ([facility]): no carotid or vertebral stenosis, unremarkab le.Had EEG ([facility]) 06/05/19. For recurrent palpitatio ns, obtain 24 hour Holter. Dyspnea [id number] R06.00 No regular meds for asthma since childhood. Previously , off inhalers for [address] Grant pulmonolog ist with re-initiat ion of inhalers prn in the event untreated reactive airways disease is contributi ng to her symptom complex. Had PFTs per Dr. Grant. Anemia 668308092 D64.9 Had 03/19/18: hgb 9.7 Had CBC 06/23/2019 WBC 6.5 RBC 4.14 HGB 10.5 HCT 33.7 PLT 243 Tobacco de pendence syndrome 68410364 F17.200 Pt resumed smoking. Cessation recommende d to minimize vasospasm. Avoid Chantix given history of untreated depression . Chest pain 18316040 R07. 9 Patient presents with exertional chest pain with atypical features with associated near syncope and exertional dyspnea which can be an anginal equivalent . Given the history, exam findings and high cardiac risk factors, I feel additional investigat ion is warranted. I have made arrangemen ts in the near future for an exercise stress echocardio gram to evaluate for any ischemia, structural heart disease, or exercise induced arrythmia. The procedure was discussed with the patient, and risks, benefits, and alternativ e options were explained. Appropriat e labwork has been performed recently, therefore I have not made arrangemen ts for further testing. I have asked the patient to curtail exercise and activities until our investigat ion is complete. I have made no adjustment s to the present medical regimen. Obtain 24 hour Holter. For tachypalpi tations associated with chest tightness, began metoprolol succinate 25 mg qd 09/01/17. Patient informed this will need to be tapered to off if she becomes . Tachypalpi tations improved on metoprolol . Had 12/25/16: TSH 1.06. Had GI evaluation with findings of gastritis, improved on omeprazole . Had Treadmill Nuclear Stress Test 12/18/16: Positive stress test for ischemia. Normal LV systolic function. Abnormal stress test. Reversible defect consistent with ischemia in [place] area, which is small and mild. No previous study to compare. Exercise tolerance is average. LVEF 59%. Had cardiac CTA done in 01/07/18 showed mild CAD (<25% stenosis) LAD, Localized atelectasi s. [id number] Robby Diop MD [facility] [address] [place] [address] 08/07/2020 12:39:13 08/07/2020 13:46:14 Coronary arteriosclerosis 42126694 I25.10 Mild. Had cardiac CTA done in 01/07/18 showed mild CAD (<25% stenosis LAD), localized atelectasi s. Continue ASA. Needs to keep LDL less than 70, and HDL more than 40. Had 06/02/18: LDL 67. Had LIPID 06/23/2019 TR 31 CH 138 HDL 72 LDL 60 . Obtain FLP. Chest pain 10933411 R07. 9 Patient presents with exertional chest pain with atypical features with associated syncope and increased exertional dyspnea which can be an anginal equivalent , and with known CAD. Given the history, exam findings and high cardiac risk factors, I feel additional investigat ion is warranted. I have made arrangemen ts in the near future for an exercise stress echocardio gram to evaluate for any ischemia, structural heart disease, or exercise induced arrythmia. The procedure was discussed with the patient, and risks, benefits, and alternativ e options were explained. Appropriat e labwork has not been performed recently, therefore I have made arrangemen ts for further testing: CBC, CMP, Mg, TSH, FLP. I have asked the patient to curtail exercise and activities until our investigat ion is complete. I have made no adjustment s to the present medical regimen. For tachypalpi tations associated with chest tightness, began metoprolol succinate 25 mg qd 09/01/17. Patient informed this will need to be tapered to off if she becomes . Tachypalpi tations previously improved on metoprolol . Had 12/25/16: TSH 1.06. Had GI evaluation with findings of gastritis, improved on omeprazole , but she is no longer on PPI. Had Treadmill Nuclear Stress Test 12/18/16: Positive stress test for ischemia. Normal LV systolic function. Abnormal stress test. Reversible defect consistent with ischemia in [place] area, which is small and mild. No previous study to compare. Exercise tolerance is average. LVEF 59%. Had cardiac CTA done in 01/07/18 showed mild CAD (<25% stenosis) LAD, Localized atelectasi s. If stress test negative, needs treatment for GI/GERD issues and asthma. Needs a new PCP. Syncope [id number] R55 Had recent recurrence . Prior syncope in setting of alcohol and nausea, possible vasovagal episode. With associated palpitatio ns dizziness, chest pain, and dyspnea. Had EKG in office 10/13/17 with and without chest pressure and dizziness, revealing NSR and no acute changes. Obtain 14 day Zoll event monitor. Had Event Monitor 12/29/16: Unremarkab le event monitor. Symptoms did not correlate to any arrhythmia . The symptoms correlated with normal sinus rhythm and sinus tachycardi a. Had Had 24 hour Holter 12/10/16: Symptoms of palpitatio ns, dizziness, and chest tightness correlated with NSR, sinus arrhythmia , and sinus tachycardi a. No PACs or PVCs. Continue ASA 81 mg qd. Began metoprolol succinate 25 mg qd 12/01/17. Increased to metoprolol succinate 50 mg qd 05/02/18 for elevated resting HR and palpitatio ns. Pt reports considerin g , so will need to stop beta-block er if actively pursued. Had US, Carotid Artery 10/26/17 : Antegrade flow noted in both vertebral arteries. Very mild bilateral internal carotid artery stenosis with less than 15% diameter stenosis. Had appointmen t with Neuro for EEG and MRI.Had MRI/MRA brain,neck 05/12/18 ([facility]): no carotid or vertebral stenosis, unremarkab le.Had EEG ([facility]) 06/05/19. For recurrent palpitatio ns, obtain 14 day Zoll monitor and stress echo. Dyspnea [id number] R06.00 No regular meds for asthma since childhood. Previously , off inhalers for [address] Grant pulmonolog ist with re-initiat ion of inhalers prn in the event untreated reactive airways disease is contributi ng to her symptoms. Had PFTs per Dr. Grant. Needs f/u with Dr. Grant. Anemia [id number] D64.9 Had 03/19/18: hgb 9.7 Had CBC 06/23/2019 WBC 6.5 RBC 4.14 HGB 10.5 HCT 33.7 PLT 243 Tobacco de pendence syndrome [id number] F17.200 Pt resumed smoking. Cessation recommende d to minimize vasospasm. Avoid Chantix given history of untreated depression . Taper to off. [id number] Robby Diop MD [facility] [address] [place] [address] 09/04/2020 12:30:07 09/04/2020 13:02:01 Coronary arteriosclerosis [id number] I25.10 Mild. Had cardiac CTA done in 01/07/18 showed mild CAD (<25% stenosis LAD), localized atelectasi s. Continue ASA. Needs to keep LDL less than 70, and HDL more than 40. Had 06/02/18: LDL 67. Had LIPID 06/23/2019 TR 31 CH 138 HDL 72 LDL 60 . Obtain FLP. Chest pain [id number] R07. 9 Patient presents with exertional chest pain with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
[2025-06-14 23:01] VITALS: BP 144/97; PULSE 85; RESP 18; TEMP 36.7; O2SAT 100
[2025-06-15 00:12] LABS: Non Pathogenic Casts 0-2
[2025-06-15 00:14] LABS: Add Urine Microscopic? YES; Appearance Urine Cloudy (Clear); Glucose Urine UA Negative (Negative); Leukocyte Esterase Ur Trace LEU/UL (Negative); Nitrate Urine Negative (Negative); Specific Grav Ur 1.031 (1.001-1.035)
[2025-06-15 00:17] LABS: BEDSIDEPREGUCG Negative (Negative)
--- NOTE | 2025-06-15 01:11 | ED.GENADULT ---
HPI - General Adult General Chief complaint: Urogenital-Female Stated complaint: flank pain Time Seen by Provider: 06/15/25 01:03 Source: patient Mode of arrival: ambulatory Limitations: no limitations History of Present Illness HPI narrative: Patient is a 39-year-old female presents to the emergency department complaining of left flank pain. Patient states the pain started around 2:00 p.m. today sporadically, has been constant since it started, describes it as a sensation like it is a UTI, unable to really describe the pain otherwise, pain does not radiate, no history of pain in the past, has not noticed any making the pain better or worse. Patient does admit to some slight urinary frequency today. Patient denies any dysuria, urinary urgency, hematuria. Patient denies any recent injuries recent illness. Patient denies any nausea, vomiting, abdominal pain. Related Data Home Medications ?Medication ?Instructions ?Recorded ?Confirmed ?Last Taken ?Type aspirin 81 mg tablet 81 mg PO DAILY 10/07/20 10/07/20 Unknown History metoprolol tartrate 50 mg tablet 50 mg PO DAILY 10/07/20 10/07/20 Unknown History Allergies Allergy/AdvReac Type Severity Reaction Status Date / Time No Known Allergies Allergy Verified 12/01/23 17:37 Review of Systems Review of Systems: A 10 system review of systems was completed on the patient and is negative except for what is stated in the HPI. Nursing and ancillary documentation was reviewed. Exam Narrative: CONST: No acute distress. Well nourished. HENMT: Head is normocephalic and atraumatic. Moist mucous membranes. No posterior oropharynx erythema. EYES: No scleral icterus. No conjunctival injection or pallor. PERRL. NECK: No meningeal signs. RESP: Able to speak in full sentences. Normal respiratory effort. CTAB. CARDIO: Regular rate. Regular rhythm. 2+ DP and radial pulses bilaterally. GI: Nondistended. No tenderness to palpation. Soft. : No CVA tenderness to palpation. SKIN: No rashes or lesions noted on exposed skin. NEURO: Oriented x3. Moves all extremities. EXTREM/MSK/BACK: No pedal edema. PSYCH: Normal affect. Course Vital Signs Vital signs: Vital Signs Temperature 98.0 F 06/14/25 23:01 Pulse Rate 85 06/14/25 23:01 Respiratory Rate 18 06/14/25 23:01 Blood Pressure 144/97 H 06/14/25 23:01 Pulse Oximetry 100 06/14/25 23:01 Oxygen Delivery Room Air 06/14/25 23:01 Temperature 98.0 F 06/15/25 04:27 Pulse Rate 72 06/15/25 04:27 Respiratory Rate 20 06/15/25 04:27 Blood Pressure 125/87 06/15/25 04:27 Pulse Oximetry 100 06/15/25 04:27 Oxygen Delivery Room Air 06/14/25 23:01 [facility] Narrative Medical decision making narrative: Patient presents with the above complaint. Initial vitals are remarkable for no significant abnormalities. Physical examination as noted above. Plan discussed: Laboratory analysis, CT abdomen pelvis, continues youth nutritional monitor, continuous pulse oximetry, Toradol, IV fluids. CT of the abdomen pelvis preliminary report radiology impression is compared to November 25, 2022 the kidneys are unremarkable, no hydronephrosis or ureterolithiasis is seen involving either kidney. The appendix is normal. Bowel loops are nondilated. No acute inflammatory changes are seen involving the bowel. The liver, gallbladder, pancreas, spleen, and right adrenal gland is within normal limits. 1.5 cm left adrenal nodule, unchanged. No follow-up is required. The uterus, adnexa, and urinary bladder appear within normal limits. No acute process is seen within the abdomen or pelvis. Small amount of bronchiectasis in the lingula and right lower lobe. No acute infiltrates. Patient was reassessed at the bedside. Patient is in no acute distress. Patient informed of the left adrenal nodule that is unchanged and radiology does not recommend any follow-up required. The patient has remained stable throughout the entire ED visit. Patient is sleeping upon my arrival to the room, feels well at this time, denies any pain. Discussed plan to send a prescription for antibiotics for the possibility of a UTI she still has persistent symptoms in the next few days the 10 not feeling take them if she does not have any symptoms and we reviewed the signs and symptoms of a UTI. Counseled patient regarding diagnostic results and potential diagnosis. Anticipatory guidance provided. Patient instructed to follow up with PCP within the next 3 days. Patient counseled on: false reassurance from an emergency department evaluation; no current evidence of a medical emergency; return immediately for any new, recurrent, worsening, concerning, or refractory symptoms. Patient prescribed Keflex. Prescription sent to preferred pharmacy. Medications discussed with patient. Additional verbal and printed discharge instructions were given and discussed with the patient. Patient verbally acknowledges understanding of condition and discharge instructions. All questions were answered to the patient's satisfaction. Patient is in agreement with the plan of care. The patient is stable for discharge and was discharged without incident. Differential Diagnosis Differential Diagnosis: Ureterolithiasis, UTI, musculoskeletal strain. Medical Records I have reviewed the following patient records and this information was taken into consideration when formulating the assessment and plan.: previous ER visits Lab Data MDM Lab Attestation statement: I personally reviewed the patient's lab results. Lab results narrative: Urinalysis is a cloudy appearance with 1+ protein, 3+ blood, trace leukocyte esterase, greater than 100 RBCs, 6-10 wbc's, no bacteria seen. Point of care test is negative. CBC reveals a hemoglobin of 10.6. Comprehensive metabolic panel reveals a sodium 136, AST of 42. Total creatine kinase is 231. Lipase is 59. Magnesium is 2.4. 06/15/25 01:41 06/15/25 01:41 Labs: Lab Results 06/15/25 06/15/25 06/15/25 Range/Units 00:01 00:04 01:41 WBC 5.1 (4.5-10.0) K/mm3 RBC 4.05 L (4.2-5.4) M/mm3 Hgb 10.6 L (12.0-15.0) g/dL Hct 34.4 L (37.0-47.0) % MCV 84.9 (80-100) fl MCH 26.2 (26-34) pg MCHC 30.8 L (32-36) g/dl RDW 17.6 H (11.5-14.5) % Plt Count 242 (150-375) k/mm3 MPV 11.2 H (7.4-10.4) fl Immature Gran % (Auto) 0.2 (0-0.5) % Neut % (Auto) 25.2 L (45.5-73.1) % Lymph % (Auto) 63.2 H (18.3-44.2) % Kingfisher % (Auto) 10.8 H (2.6-8.5) % Eos % (Auto) 0.2 (0-4.4) % Baso % (Auto) 0.4 (0.2-1.2) % Lymph # (Auto) 3.21 H (0.9-3.2) K/mm3 Kingfisher # (Auto) 0.6 (0.1-0.6) K/mm3 Eos # (Auto) 0.0 (0-0.3) K/mm3 Baso # (Auto) 0.0 (0.0-0.1) K/mm3 Abs Immat Gran (auto) 0.01 (0.00-0.031) K/mm3 Absolute Neuts (auto) 1.3 (1.3-6.7) K/mm3 Absolute Nucleated RBC 0.000 (0.0-0.012) K/mm3 Nucleated RBC % 0.0 (0.0-0.2) % Sodium 136 L (137-145) mmol/L Potassium 4.3 (3.4-5.0) mmol/L Chloride 107 (98-107) mmol/L Carbon Dioxide 24 (22-30) mmol/L Anion Gap 5 (4-12) mmol/L BUN 11 (7-17) mg/dL Creatinine 0.79 (0.7-1.0) mg/dL Estim Creat Clear Calc 92 ml/min Estimated GFR > 60 (59 - ) Glucose 103 (65-110) mg/dL Calcium 8.9 (8.4-10.2) mg/dL Magnesium 2.4 H (1.6-2.3) mg/dL Total Bilirubin 0.6 (0.2-1.3) mg/dL AST 42 H (14-36) U/L ALT 22 (6-35) U/L Alkaline Phosphatase 70 (38-126) U/L Total Creatine Kinase 231 H (30-135) U/L Total Protein 8.6 H (6.3-8.2) g/dL Albumin 4.4 (3.5-5.1) g/dL Lipase 59 (23-300) U/L Urine Color Dark ronaldo (Yellow) Urine Appearance Cloudy H (Clear) Urine pH 5.0 (5.0-9.0) Ur Specific Townsend 1.031 (1.001-1.035) Urine Protein 1+ H (Negative) mg/dL Urine Glucose (UA) Negative (Negative) mg/dL Urine Ketones Negative (Negative) mg/dL Ur Blood (Man) 3+ H (Negative) Urine Nitrate Negative (Negative) Urine Bilirubin Negative (Negative) Urine Urobilinogen 1.0 (<2.0) mg/dL Leukocyte Esterase Rfl Trace H (Negative) FELICIA/UL Urine RBC >100 H (0-2) /hpf Urine WBC 6-10 H (0-3) /hpf Ur Squamous Epith Cells Occasional (Few) /hpf Urine Bacteria None seen /hpf Urine Casts 0-2 POC Urine HCG, Qual Negative (Negative) Discharge Plan Discharge Clinical Impression: Acute flank pain Patient Disposition: Home Condition: Stable Instructions: Antibiotic Form, Flank Pain (ED), Urinary Urgency and Frequency (DC) Additional Instructions: Follow-up with your primary care physician next few days for reassessment, rest and stay well hydrated. I sent a prescription for antibiotics to the pharmacy and if you have any persistent urinary frequency or developed any burning or urgency fill it and take them as prescribed but if you don't no need to fill that medication. Take Tylenol and Motrin OTC as needed for any discomfort. Return immediately to the emergency department for any new or concerning symptoms especially any emergent concerns for life, limb, eyesight. Patient Language: Argentine Prescriptions: New cephalexin 500 mg capsule 500 mg PO Q12H 7 Days Qty: 14 0RF No Action metoprolol tartrate 50 mg Tablet 50 mg PO DAILY Adult Low Dose Aspirin 81 mg Tablet 81 mg PO DAILY cephalexin 500 mg capsule 500 mg PO Q8H 7 Days Qty: 21 0RF ondansetron 4 mg tablet,disintegrating 4 mg PO Q8H PRN (Reason: nausea and vomiting) Qty: 10 0RF cephalexin 500 mg capsule 500 mg PO Q8H 7 Days Qty: 21 0RF naproxen 500 mg tablet 500 mg PO BID PRN (Reason: pain) Qty: 30 0RF acetaminophen [Tylenol] 325 mg capsule 325 mg PO ONCE PRN (Reason: fever or pain) Qty: 30 0RF Follow-up/Referrals: Fabiano,FAZAL Maya [Primary Care Provider, Unknown] - 3 Days Time of Disposition: 04:06
--- OUTSIDE RECORDS SUMMARY | 2025-06-15 01:33 | XMS_ITS | Clinical Summary ---
Author Organization [facility] Address [address] [place] [address] Care Team Providers Care Battery Builder Name Role Phone Guerda Jimenez DO Primary Care Provider [phone] Deneen Galo MD Unavailable [phone] Source Comments [facility],non-owned Affiliates and Associated Physician Practices is amultiple site organization consisting of ambulatory clinics and hospital sitesin [place], [place], [place] and [place]. This disclosure is being madepursuant to the Care Everywhere program and may not contain all information available regarding this patient. Last updated 18.[facility] Allergies Active Allergy Reactions Criticality Noted Date [...] once daily 238 g 06/26/2024 12:09 PM EXPLORATION MANAGER 4 Active acetaminophen (Tylenol) 500 MG tablet Take 2 (two) tablets by mouth every 6 hours as needed for Fever or Pain 60 tablet 06/26/2024 12:09 PM EXPLORATION MANAGER 4 Active docusate sodium (Colace) 100 MG capsule Take 1 (one) capsule by mouth once daily 30 capsule 06/26/2024 12:09 PM EXPLORATION MANAGER 4 Active ibuprofen (Motrin) 600 MG tablet Take 1 (one) tablet by mouth every 6 hours as needed for Pain 30 tablet 06/26/2024 12:09 PM EXPLORATION MANAGER 4 Active Active Problems Patient Care Coordination No te Formatting of this note migh t be different from the original. [employer] form completed. Diapers given. 04/04/2024, [...] Date Iron deficiency anemia during 03/14/2024 05/02/2024 Encounters Date Type Department Care Team Description 06/15/2025 Refill [facility]/ EVALUATION UNIT [address] [place] [address] Elgin Mcbride MD Refill Request from Last 3 Months Immunizations Immunization Administration Dates Next Due DTAP, [...] you are drinking? Patient does not drink Q3: How often do you have si x or more drinks on one occasion? Never 04/28/2024 Overall Financial Resource Strain (CARDIA) Answe r Date Recorded How hard is it for you to pa y for the very basics like food, housing, medical care, and heating? Not hard at all 06/22/2024 PHQ-2 Answer Date Recorded Patient Health Questionnaire-2 Score 0 03/31/2024 [facility] [place] [facility] Occupat ional Health - Occupational Stress Questionnaire Answer Date Recorded [...] place to sleep or slept in a senior living (including now)? No 04/04/2024 [place] Depression Scale Answer Date Recorded [place] Depression Scale Total 4 06/25/2024 The thought [...] any time in the past 12 m [facility], were you homeless or living in a senior living (including now)? No 06/22/2024 Comments No Sex and Gender Information Value Date Recorded Sex Assigned at Female 01/12/2024 7:53 PM CDT Legal Sex Female 12:09 PM CDT Gender Identity Female 01/12/2024 7:53 PM CDT Sexual Orientation Straight 01/12/2024 7: 53 PM CDT Last Filed Vital Signs Vital Sign Reading Time Taken Comments Blood Pressure 118/77 06/26/2024 8:25 AM EXPLORATION MANAGER Pulse 75 06/26/2024 8:25 AM EXPLORATION MANAGER Temperature 36.7 C (98.1 F) 06/26/2024 8:25 AM EXPLORATION MANAGER Respiratory Rate 16 06/26/2024 8:25 AM EXPLORATION MANAGER Oxygen Saturation 100% 06/26/2024 8:25 AM EXPLORATION MANAGER Inhaled Oxygen Concentration 21% 06/24/2024 9 :45 PM EXPLORATION MANAGER Weight 90.7 kg (200 lb) 06/22/2024 10:49 AM EXPLORATION MANAGER Height 168.9 cm (5' 6.5) 06/22/2024 10:49 AM CS T Body Mass Index 31.8 06/22/2024 10:49 AM EXPLORATION MANAGER Plan of Treatment Health Maintenance Due Date [...] Reactive Non Reactive 04/04/2024 5:21 PM CDT [facility] Blood BLOOD SPECIMEN / Unknown Venipuncture / Unknown 04/04/2024 4:09 PM CDT 04/04/2024 4:32 PM CDT Narrative [facility] - 04/04/2024 5:21 PM CDT No Laboratory evidence of HIV infection. us Rebecca Torres MD LAB - CHEMISTRY ORDERAB LES Final Result [facility] [address] [place] [address] * (ABNORMAL) PAP IG LB+HPV APTIMA (02/15/2024 5:18 PM CDT) Diagnosis Comment 02/21/2024 7:07 PM CDT [facility] ([facility]) Comment:NEGATIVE FOR INTRAEP ITHELIAL LESION OR MALIGNANCY. Specimen Adequacy Comment 024 7:07 PM CDT [facility] ([facility]) Comment: Satisfactory for evaluation. Endocervical and/or squamous metaplastic cells (endocervical component) are present. Performed by Comment 02/21/2024 7:07 PM CDT [facility] ([facility]) Comment:Romina Olmos, Cyto technologist (ASCP) Comment . 02/21/2024 7:07 PM CDT [facility] ([facility]) Note Comment 02/21/2024 7:07 PM CDT [facility] ([facility]) Comment: The Pap smear is a screening test designed to aid in the detection of premalignant and malignant conditions of the uterine cervix. It is not a diagnostic procedure and should not be used as the sole means of detecting cervical cancer. Both false-positive and false-negative reports do occur. IGLBP CPT Code Automation Comment 02/21/2024 7:07 PM CDT [facility] ([facility]) Comment: This liquid based ThinPrep(R) pap test was screened with the use of an image guided system. Human papillomavirus Aptima Positive(A ) Negative 02/21/2024 7:07 PM CDT [facility] ([facility]) Comment: This nucleic acid amplification test detects fourteen high-risk HPV types (16,18,31,33,35,39,45,51,52,56,58,59,66,68) without differentiation. Pathology/Cytolo gy ENTIRE ENDOCERVIX / Unknown Collection / Unknown 02/15/2024 5:18 PM CDT 02/15/2024 5:28 PM CDT Narrative [facility] ([facility]) - 02/21/2024 7:07 PM CDT Performed at: 01 - [address] [id number] Performance Test Consultant: Gely Trent MD, Phone: [phone] Performed at: 02 - [address] [id number] Performance Test Consultant: Gely Trent MD, Phone: [phone] Specimen Comment: No. of containers..01 ThinPrep Vial us Elgin Mcbride MD LAB - PATHOLOGY/CYTOLOG Y ORDERABLES Final Result [facility]) [address] [place] [address] from Last 3 Months or Most Recently Relevant to Health Maintenance Insurance [facility] Advance Directives * Full Code (Latest Code Status on File) Date Activated Date Inactivated Comments 06/22/2024 9:24 AM 06/26/2024 1:11 PM Care Teams Battery Builder Relationship Specialty Start Date End Date Guerda Jimenez DO [address] [place] [address] PCP - General 12/15/17 Deneen Galo MD [address] [facility] [address] [place] [address] Resident Obstetrics and Gynecology 03/30/24
--- OUTSIDE RECORDS SUMMARY | 2025-06-15 01:33 | XMS_ITS | Clinical Summary ---
Author Organization [facility] Address [address] [place] [address] Care Team Providers Care Catalytic Case Operator Name Role Phone No, Physician Unavailable Referring, [...] on file Legal Sex Female 12:59 AM COMPUTER SYSTEMS SECURITY ANALYST Gender Identity Not on file Sexual Orientation [...] Screening Completed 03/16/2001 , 11/29/1999, 03/11/1996 Insurance [facility] Care Teams Catalytic Case Operator Relationship Specialty Start Date End Date Referring, Unknown, MD PCP - General Pediatrics 09/25/24 No, Physician 04/10/22
--- OUTSIDE RECORDS SUMMARY | 2025-06-15 01:33 | XMS_ITS | Data Portability ---
Author Organization [facility] TREYReina Horta Address [address] [place] [address] Care Team Providers Care Luncheonette Operator Name Role Phone CASTRO MOSHER Primary Care Provider Assessment No assessment recorded. Plan of Treatment Reminders Order Date Submit Date Provider Last Modified By Organization Details Last Modified Time Details Appointments ANY 15 2024 08:45A M Castro Mosher, WATER QUALITY ANALYST-C Not available Not available Not available Lab HCG, intact + beta subunit, quant, serum or plasma 2024 025 [facility], [address] [place] [address], [address], [place], [address], 02/12/2025 14:41:52 CBC w/ auto diff 2024 025 [facility], [address] [place] [address], [facility] [address], [place], [address], 01/22/2025 20:08:52 vitamin D, 25-hydrox y, total, serum 2024 025 [facility], [address] [place] [address], [address], [place], [address], 02/12/2025 14:41:52 CMP, serum or plasma 2024 025 [facility], [address] [place], [place] [address]an[address], [address], [place], [address], 10/26/2024 08:14:12 lipid panel, serum 2024 025 [facility], [address], [address], [place], [address], 10/24/2024 21:27:31 TSH, ultra-sen sitive, serum 2024 025 [facility], [address], [address], [place], [address], 11/08/2024 16:38:58 CBC w/ auto diff 2022 023 [facility]O [facility], [address], [address], [place], [address], 01/11/2023 03:07:20 iron + total iron-bind ing capacity (TIBC), serum 2022 023 [facility]O [facility], [facility], [address], [place], [address], 01/11/2023 03:07:20 ferritin, serum or plasma 2022 023 FALCO [facility], [address] [place], [place] [address]an[address], [address], [place], [address], 01/11/2023 03:07:20 vitamin B12 + folate, serum or blood 2022 023 [facility]O [facility], [address] [place] [address] [address], [address], [place], [address], 12/02/2022 09:15:01 Referral physical therapist referral 2024 025 [facility], [address], [address], [place], [address], 05/28/2025 11:21:26 physical therapist referral - low back pain after epidural 2024 025 [facility], [address], [address], [place], [address], 12/07/2024 12:01:37 Procedures None recorded. Surgeries None recorded. Imaging XR, knee, 3 view 2024 025 [facility] Scheduling, [address], [place], [address], 03/26/2025 11:26:07 Medication Orders multivita min tablet 2024 025 [facility]/Pharmacy #[id number], [address], [place], [address], 02/27/2025 00:20:34 Vitamin D3 50 mcg (2,000 unit) capsule 2024 025 [facility] #[id number], [address], [place], [address], 02/27/2025 00:20:33 ferrous sulfate 325 mg (65 mg iron) tablet 2024 025 [email or web address] [facility]/Pharmacy #[id number], [address] [place], [address], 05/21/2025 12:43:32 amlodipin e 5 mg tablet 2024 025 [email or web address] [facility]/Pharmacy #[id number], [address], [place], [address], 01/05/2025 14:40:31 Patient TargetsNo targets recorded. Patient Instructions Encounter Date Encounter Id Patient Instructions Last Modified By Organization Details Last Modified Time 12/01/2022 [id number] A healthy lifestyle: care instructions Not available 12/03/2022 17:04:15 10/24/2024 [id number] A healthy lifestyle: care instructions Not available 11/16/2024 21:00:16 Reason for Referral Physical Therapist Referral for Low back pain low back pain after epidural Referring Physician: Castro Mosher Drapery Worker, Encounter Date: 10/24/2024 Physical Therapist Referral for Pain of knee region Referring Physician: Castro Mosher Drapery Worker, Encounter Date: 02/26/2025 Results Created Date Observation Date Name Description Value Unit Range Abnormal Flag Note LastModifiedBy Organization Detail LastModifiedTime 11/11/19 23 11/11/2022 COMP. METAB OLIC PANEL (14) glucose 96 mg/dL 70-99 Not Available [facility] ([facility]) [address] [place], [address], 11/11/2022 08:25:28 11/11/19 23 11/11/2022 COMP. METAB OLIC PANEL (14) BUN 8 mg/dL 6-20 Not Available [facility] ([facility]) [address] [place], [address], 11/11/2022 08:25:28 11/11/19 23 11/11/2022 COMP. METAB OLIC PANEL (14) creatinine 1.00 mg/dL 0.57-1 .00 Not Available [facility] ([facility]) [address] [place], [address], 11/11/2022 08:25:28 11/11/19 23 11/11/2022 COMP. METAB OLIC PANEL (14) eGFR 74 mL/mi n/1.7 3 >59 Not Available [facility] ([facility]) [address] [place], [address], 11/11/2022 08:25:28 11/11/19 23 11/11/2022 COMP. METAB OLIC PANEL (14) BUN/creatini ne ratio 8 9-23 below low normal Not Available [facility] ([facility]) [address] [place], [address], 11/11/2022 08:25:28 11/11/19 23 11/11/2022 COMP. METAB OLIC PANEL (14) sodium 138 mmol/ L 134-14 4 Not Available [facility] ([facility]) [address] [facility] [place], [address], 11/11/2022 08:25:28 11/11/19 23 11/11/2022 COMP. METAB OLIC PANEL (14) potassium 3.9 mmol/ L 3.5-5. 2 Not Available [facility] ([facility]) [address] [facility] [place], [address], 11/11/2022 08:25:28 11/11/19 23 11/11/2022 COMP. METAB OLIC PANEL (14) chloride 100 mmol/ L 96-106 Not Available [facility] ([facility]) [address] [place], [address], 11/11/2022 08:25:28 11/11/19 23 11/11/2022 COMP. METAB OLIC PANEL (14) carbon dioxide, total 23 mmol/ L 20-29 Not Available [facility] ([facility]) [address] [facility] [place], [address], 11/11/2022 08:25:28 11/11/19 23 11/11/2022 COMP. METAB OLIC PANEL (14) calcium 9.4 mg/dL 8.7-10 .2 Not Available [facility] ([facility]) [address] [facility] [place], [address], 11/11/2022 08:25:28 11/11/19 23 11/11/2022 COMP. METAB OLIC PANEL (14) protein, total 8.1 g/dL 6.0-8. 5 Not Available [facility] ([facility]) [address] [facility] [place], [address], 11/11/2022 08:25:28 11/11/19 23 11/11/2022 COMP. METAB OLIC PANEL (14) albumin 4.3 g/dL 3.8-4. 8 Not Available [facility] ([facility]) [address] [facility] [place], [address], 11/11/2022 08:25:28 11/11/19 23 11/11/2022 COMP. METAB OLIC PANEL (14) globulin, total 3.8 g/dL 1.5-4. 5 Not Available [facility] ([facility]) [address] [place], [address], 11/11/2022 08:25:28 11/11/19 23 11/11/2022 COMP. METAB OLIC PANEL (14) A/G ratio 1.1 1.2-2. 2 below low normal Not Available [facility] ([facility]) [address] [facility] [place], [address], 11/11/2022 08:25:28 11/11/19 23 11/11/2022 COMP. METAB OLIC PANEL (14) bilirubin, total 0.3 mg/dL 0.0-1. 2 Not Available [facility] ([facility]) [address] [facility] [place], [address], 11/11/2022 08:25:28 11/11/19 23 11/11/2022 COMP. METAB OLIC PANEL (14) alkaline phosphatase 85 IU/L 44-121 Not Available [facility] ([facility]) [address] [facility] [place], [address], 11/11/2022 08:25:28 11/11/19 23 11/11/2022 COMP. METAB OLIC PANEL (14) AST (SGOT) 43 IU/L 0-40 above high normal Not Available [facility] ([facility]) [address] [place], [address], 11/11/2022 08:25:28 11/11/19 23 11/11/2022 COMP. METAB OLIC PANEL (14) ALT (SGPT) 29 IU/L 0-32 Not Available [facility] ([facility]) [address] [facility], [place], [address], 11/11/2022 08:25:28 11/11/1911/11/2022 TSH RFX ON ABNOR MAL TO FREE T4 TSH 1.630 uIU/m L 0.450- 4.500 Not Available [facility] ([facility]) [address] [facility], [place], [address], 11/11/2022 08:25:28 11/11/19 23 11/11/2022 CBC WITH DIFFE RENTI AL/PL ATELE T WBC 5.2 x10e3 /uL 3.4-10 .8 Not Available [facility] ([facility]) [address] [facility], [place], [address], 11/11/2022 08:25:29 11/11/1911/11/2022 CBC WITH DIFFE RENTI AL/PL ATELE T RBC 4.27 x10e6 /uL 3.77-5 .28 Not Available [facility] ([facility]) [address] [place], [address], 11/11/2022 08:25:29 11/11/1911/11/2022 CBC WITH DIFFE RENTI AL/PL ATELE T hemoglobin 10.2 g/dL 11.1-1 5.9 below low normal Not Available [facility] ([facility]) [address] [place], [address], 11/11/2022 08:25:29 11/11/1911/11/2022 CBC WITH DIFFE RENTI AL/PL ATELE T hematocrit 33.4 % 34.0-4 6.6 below low normal Not Available [facility] ([facility]) [address] [place], [address], 11/11/2022 08:25:29 11/11/19 23 11/11/2022 CBC WITH DIFFE RENTI AL/PL ATELE T MCV 78 fL 79-97 below low normal Not Available [facility] ([facility]) [address] [place], [address], 11/11/2022 08:25:29 11/11/19 23 11/11/2022 CBC WITH DIFFE RENTI AL/PL ATELE T MCH 23.9 pg 26.6-3 3.0 below low normal Not Available [facility] ([facility]) [address] [place], [address], 11/11/2022 08:25:29 11/11/1911/11/2022 CBC WITH DIFFE RENTI AL/PL ATELE T MCHC 30.5 g/dL 31.5-3 5.7 below low normal Not Available [facility] ([facility]) [address] [place], [address], 11/11/2022 08:25:29 11/11/1911/11/2022 CBC WITH DIFFE RENTI AL/PL ATELE T RDW 16.3 % 11.7-1 5.4 above high normal Not Available [facility] ([facility]) [address] [place], [address], 11/11/2022 08:25:29 11/11/1911/11/2022 CBC WITH DIFFE RENTI AL/PL ATELE T platelets 206 x10e3 /uL 150-45 0 Not Available [facility] ([facility]) [address] [place], [address], 11/11/2022 08:25:29 11/11/1911/11/2022 CBC WITH DIFFE RENTI AL/PL ATELE T neutrophils 37 % notest ab. Not Available [facility] ([facility]) [address] [place], [address], 11/11/2022 08:25:29 11/11/19 23 11/11/2022 CBC WITH DIFFE RENTI AL/PL ATELE T lymphs 46 % notest ab. Not Available [facility] ([facility]) [address] [facility], [place], [address], 11/11/2022 08:25:29 11/11/19 23 11/11/2022 CBC WITH DIFFE RENTI AL/PL ATELE T monocytes 13 % notest ab. Not Available [facility] ([facility]) [address] [facility], [place], [address], 11/11/2022 08:25:29 11/11/19 23 11/11/2022 CBC WITH DIFFE RENTI AL/PL ATELE T eos 3 % notest ab. Not Available [facility] ([facility]) [address] [facility], [place], [address], 11/11/2022 08:25:29 11/11/19 23 11/11/2022 CBC WITH DIFFE RENTI AL/PL ATELE T basos 1 % notest ab. Not Available [facility] ([facility]) [address] [facility], [place], [address], 11/11/2022 08:25:29 11/11/1911/11/2022 CBC WITH DIFFE RENTI AL/PL ATELE T neutrophils (absolute) 1.9 x10e3 /uL 1.4-7. 0 Not Available [facility] ([facility]) [address] [facility], [place], [address], 11/11/2022 08:25:29 11/11/19 23 11/11/2022 CBC WITH DIFFE RENTI AL/PL ATELE T lymphs (absolute) 2.4 x10e3 /uL 0.7-3. 1 Not Available [facility] ([facility]) [address] [facility], [place], [address], 11/11/2022 08:25:29 11/11/19 23 11/11/2022 CBC WITH DIFFE RENTI AL/PL ATELE T monocytes(ab solute) 0.7 x10e3 /uL 0.1-0. 9 Not Available [facility] ([facility]) [address] [place], [address], 11/11/2022 08:25:29 11/11/19 23 11/11/2022 CBC WITH DIFFE RENTI AL/PL ATELE T eos (absolute) 0.1 x10e3 /uL 0.0-0. 4 Not Available [facility] ([facility]) [address] [facility], [place], [address], 11/11/2022 08:25:29 11/11/19 23 11/11/2022 CBC WITH DIFFE RENTI AL/PL ATELE T baso (absolute) 0.1 x10e3 /uL 0.0-0. 2 Not Available [facility] ([facility]) [address] [place], [address], 11/11/2022 08:25:29 11/11/19 23 11/11/2022 CBC WITH DIFFE RENTI AL/PL ATELE T immature granulocytes 0 % notest ab. Not Available [facility] ([facility]) [address] [facility], [place], [address], 11/11/2022 08:25:29 11/11/19 23 11/11/2022 CBC WITH DIFFE RENTI AL/PL ATELE T immature grans (abs) 0.0 x10e3 /uL 0.0-0. 1 Not Available [facility] ([facility]) [address] [place], [address], 11/11/2022 08:25:29 11/11/1911/11/2022 CBC WITH DIFFE RENTI AL/PL ATELE T hematology comments: Note: Verif ied by ann mccabe nMary Not Available [facility] ([facility]) [address] [place], [address], 11/11/2022 08:25:29 11/18/19 23 11/18/2022 IRON AND TIBC iron bind.cap.(TI BC) 365 ug/dL 250-45 0 Not Available [facility] ([facility]) [address] [place], [address], 11/18/2022 08:28:55 11/18/19 23 11/18/2022 IRON AND TIBC UIBC 339 ug/dL 131-42 5 Not Available [facility] ([facility]) [address] [place], [address], 11/18/2022 08:28:55 11/18/1911/18/2022 IRON AND TIBC iron 26 ug/dL 27-159 below low normal Not Available [facility] ([facility]) [address] [place], [address], 11/18/2022 08:28:55 11/18/1911/18/2022 IRON AND TIBC iron saturation 7 % 15-55 alert low Not Available [facility] ([facility]) [address] [place], [address], 11/18/2022 08:28:55 11/18/1911/18/2022 FRANCK TIN ferritin 229 NG/mL 15-150 above high normal Not Available [facility] ([facility]) [address] [place], [address], 11/18/2022 08:28:56 11/18/1911/18/2022 HCG QL W/REF LORI TO HCG QN HCG,beta subunit,qual Negati ve mIU/m L negati ve<6 Not Available [facility] ([facility]) [address] [place], [address], 11/19/2022 08:26:46 11/18/19 23 11/19/2022 URINE CULTU RE,CO MPREH ENSIV E urine culture,comp rehensive Final report Not Available [facility] ([facility]) [address] [facility], [place], [address], 11/19/2022 08:26:46 11/18/19 23 11/19/2022 URINE CULTU RE,CO MPREH ENSIV E result 1 Commen t Mixed uroge nital meghna 10,00 0-25, 000 colon y formi ng units per mL Not Available [facility] ([facility]) [address] [facility], [place], [address], 11/19/2022 08:26:46 11/18/19 23 11/17/2022 pregn janneth test, urine HCG negati ve Not Available In-Office Order Internal Use Only DO Not Attach Compendium DO Not Attach Compendium, Do Not Delete/merge, 11/17/2022 12:42:21 11/18/19 23 11/17/2022 urina lysis , dipst ick Leukocytes Negati ve Not Available In-Office Order Internal Use Only DO Not Attach Compendium DO Not Attach Compendium, Do Not Delete/merge, 11/17/2022 12:42:20 11/18/19 23 11/17/2022 urina lysis , dipst ick Nitrite negati ve Not Available In-Office Order Internal Use Only DO Not Attach Compendium DO Not Attach Compendium, Do Not Delete/merge, 11/17/2022 12:42:20 11/18/19 23 11/17/2022 urina lysis , dipst ick Urobilinogen 1 Not Available In-Of fice Order Internal Use Only DO Not Attach Compendium DO Not Attach Compendium, Do Not Delete/merge, 11/17/2022 12:42:20 11/18/19 23 11/17/2022 urina lysis , dipst ick Protein 100 Not Available In-Office Order Internal Use Only DO Not Attach Compendium DO Not Attach Compendium, Do Not Delete/merge, 11/17/2022 12:42:20 11/18/19 23 11/17/2022 urina lysis , dipst ick pH 6.0 Not Available In-Office Order Internal Use Only DO Not Attach Compendium DO Not Attach Compendium, Do Not Delete/merge, [facility] 11/17/2022 12:42:20 11/18/1911/17/2022 urina lysis , dipst ick Blood Non-He molyze d: Trace Not Available In-Office Order Internal Use Only DO Not Attach Compendium DO Not Attach Compendium, Do Not Delete/merge, [facility] 11/17/2022 12:42:20 11/18/1911/17/2022 urina lysis , dipst ick Specific [place] 1.020 Not Available In-Off ice Order Internal Use Only DO Not Attach Compendium DO Not Attach Compendium, Do Not Delete/merge, [facility] 11/17/2022 12:42:20 11/18/1911/17/2022 urina lysis , dipst ick Ketone Trace Not Available In-Office Order Internal Use Only DO Not Attach Compendium DO Not Attach Compendium, Do Not Delete/merge, [facility] 11/17/2022 12:42:20 11/18/1911/17/2022 urina lysis , dipst ick Bilirubin Small Not Available In-Offic e Order Internal Use Only DO Not Attach Compendium DO Not Attach Compendium, Do Not Delete/merge, [facility] 11/17/2022 12:42:20 11/18/1911/17/2022 urina lysis , dipst ick Glucose Negati ve Not Available In-Office Order Internal Use Only DO Not Attach Compendium DO Not Attach Compendium, Do Not Delete/merge, [facility] 11/17/2022 12:42:20 11/18/1911/17/2022 urina lysis , dipst ick Appearance Slight ly Cloudy Not Available In-Office Order Internal Use Only DO Not Attach Compendium DO Not Attach Compendium, Do Not Delete/merge, [id number] 11/17/2022 12:42:20 11/18/1911/17/2022 urina lysis , dipst ick Color Dark Yellow Not Available In-Office Order Internal Use Only DO Not Attach Compendium DO Not Attach Compendium, Do Not Delete/merge, [facility] 11/17/2022 12:42:20 12/02/19 23 12/02/2022 VITAM IN B12 AND FOLAT E vitamin B12 1271 pg/mL 232-12 45 above high normal Not Available [facility] ([facility]) [address] [facility], [place], [address], 12/02/2022 09:15:01 12/02/19 23 12/02/2022 VITAM IN B12 AND FOLAT E folate (folic acid), serum 13.1 NG/mL >3.0 A serum folat e simeon ntrat ion of less than 3.1 ng/mL is consi dered to repre sent clini jovita defic iency . Not Available [facility] ([facility]) [address] [facility], [place], [address], 12/02/2022 09:15:01 02/15/20 24 02/15/2024 Iron satur ation [Mass Fract ion] in Serum or Plasm a iron [mass/volume ] in serum or plasma 21 ug/dL low: 40ug/d Lhigh: 150ug/ dL low Iron 21 (L) 40 - 150 ug/dL 02/14 5:54 PM CDT [facility] Not Available Not Available 10/23/2024 16:31:15 02/15/20 24 02/15/2024 Iron satur ation [Mass Fract ion] in Serum or Plasm a transferrin [mass/volume ] in serum or plasma 345 mg/dL low: 174mg/ dLhigh : 382mg/ dL Trans franck n 345 174 - 382 mg/dL 02/14 5:54 PM CDT [facility] Not Available Not Available 10/23/2024 16:31:15 02/15/20 24 02/15/2024 Iron satur ation [Mass Fract ion] in Serum or Plasm a iron binding capacity [mass/volume ] in serum or plasma 431 ug/dL low: 240ug/ dLhigh : 450ug/ dL TIBC Calcu lated 431 240 - 450 ug/dL 02/14 5:54 PM CDT [facility] Not Available Not Available 10/23/2024 16:31:15 02/15/20 24 02/15/2024 Iron satur ation [Mass Fract ion] in Serum or Plasm a iron saturation [mass fraction] in serum or plasma 5 % low: 20%hig h: 50% low Iron Satur ation % 5 (L) 20 - 50 % 02/14 5:54 PM CDT [facility] Not Available Not Available 10/23/2024 16:31:15 02/15/20 24 02/15/2024 Iron satur ation [Mass Fract ion] in Serum or Plasm a interpretati on and review of laboratory results Abnorm al Not Available Not Available 16:31:15 02/15/20 24 02/15/2024 Franck tin [Mass /volu me] in Serum or Plasm a ferritin [mass/volume ] in serum or plasma 21 NG/mL low: 5NG/mL high: 204NG/ mL Franck tin 21 5 - 204 ng/mL 02/14 6:09 PM CDT [facility] Not Available Not Available 10/23/2024 16:31:15 02/15/20 24 02/15/2024 Franck tin [Mass /volu me] in Serum or Plasm a interpretati on and review of laboratory results Normal Not Available Not Available 10/10 16:31:15 02/15/20 24 02/15/2024 CBC panel - Blood by Autom ated count leukocytes [#/volume] in blood by automated count 8.4 text: 4.0 - 10.7 x10e9/ L WBC 8.4 4.0 - 10.7 x10E9 /L 02/14 5:33 PM CDT [facility] Not Available Not Available 10/23/2024 16:31:15 02/15/20 24 02/15/2024 CBC panel - Blood by Autom ated count erythrocytes [#/volume] in blood by automated count 3.49 text: 3.90 - 5.20 x10e12 /L low RBC Count 3.49 (L) 3.90 - 5.20 x10E1 2/L 02/14 5:33 PM CDT [facility] Not Available Not Available 10/23/2024 16:31:15 02/15/20 24 02/15/2024 CBC panel - Blood by Autom ated count hemoglobin [mass/volume ] in blood 9 g/dL low: 11.9g/ dLhigh : 15.8g/ dL low Hemog lobin 9.0 (L) 11.9 - 15.8 g/dL 02/14 5:33 PM [facility] Not Available Not Available 10/23/2024 16:31:15 02/15/20 24 02/15/2024 CBC panel - Blood by Autom ated count hematocrit [volume fraction] of blood by automated count 28.5 % low: 34.8%h igh: 46.1% low Hemat ocrit 28.5 (L) 34.8 - 46.1 % 02/14 5:33 PM [facility] Not Available Not Available 10/23/2024 16:31:15 02/15/20 24 02/15/2024 CBC panel - Blood by Autom ated count MCV [entitic mean volume] in red blood cells by automated count 81.7 fL low: 80fLhi gh: 98fL MCV 81.7 80.0 - 98.0 fL 02/14 5:33 PM [employer] [facility] Not Available Not Available 10/23/2024 16:31:15 02/15/20 24 02/15/2024 CBC panel - Blood by Autom ated count MCH [entitic mass] by automated count 25.8 pg low: 26.7pg high: 33.6pg low MCH 25.8 (L) 26.7 - 33.6 pg 02/14 5:33 PM [employer] [facility] Not Available Not Available 10/23/2024 16:31:15 02/15/20 24 02/15/2024 CBC panel - Blood by Autom ated count MCHC [entitic mass/volume] in red blood cells by automated count 31.6 g/dL low: 31.7g/ dLhigh : 36.3g/ dL low MCHC 31.6 (L) 31.7 - 36.3 g/dL 02/14 5:33 PM [employer] [facility] Not Available Not Available 10/23/2024 16:31:15 02/15/20 24 02/15/2024 CBC panel - Blood by Autom ated count erythrocyte [distwidth] in red blood cells by automated count 17.3 % low: 11.3%h igh: 14.8% high RDW-C V 17.3 (H) 11.3 - 14.8 % 02/14 5:33 PM CDT [facility] Not Available Not Available 10/23/2024 16:31:15 02/15/20 24 02/15/2024 CBC panel - Blood by Autom ated count platelets [#/volume] in blood by automated count 261 text: 150 - 420 x10e9/ L Plate let Count 261 150 - 420 x10E9 /L 02/14 5:33 PM CDT [facility] Not Available Not Available 10/23/2024 16:31:15 02/15/20 24 02/15/2024 CBC panel - Blood by Autom ated count platelet [entitic mean volume] in blood by automated count 9.9 fL low: 7.8fLh igh: 11.4fL MPV 9.9 7.8 - 11.4 fL 02/14 5:33 PM CDT [facility] Not Available Not Available 10/23/2024 16:31:15 02/15/20 24 02/15/2024 CBC panel - Blood by Autom ated count interpretati on and review of laboratory results Abnorm al Not Available Not Available 16:31:15 02/15/20 24 02/15/2024 Compr ehens mickey metab olic 1999 panel - Serum or Plasm a glucose [mass/volume ] in serum or plasma 83 mg/dL low: 70mg/d Lhigh: 105mg/ dL Gluco se 83 70 - 105 mg/dL 02/14 5:54 PM CDT [facility] Not Available Not Available 10/23/2024 16:31:15 02/15/20 24 02/15/2024 Compr ehens mickey metab olic 2000 panel - Serum or Plasm a sodium [moles/volum e] in serum or plasma 136 mmol/ L low: 136mmo l/Lhig h: 145mmo l/L Sodiu m 136 136 - 145 mmol/ L 02/14 5:54 PM CDT [facility] Not Available Not Available 10/23/2024 16:31:15 02/15/20 24 02/15/2024 Compr ehens mickey metab olic 1999 panel - Serum or Plasm a potassium [moles/volum e] in serum or plasma 3.6 mmol/ L low: 3.5mmo l/Lhig h: 5.1mmo l/L Potas sium 3.6 3.5 - 5.1 mmol/ L 02/14 5:54 PM CDT [facility] Not Available Not Available 10/23/2024 16:31:15 02/15/20 24 02/15/2024 Compr ehens mickey metab olic 1999 panel - Serum or Plasm a chloride [moles/volum e] in serum or plasma 106 mmol/ L low: 98mmol /Lhigh : 107mmo l/L Chlor emmanuel 106 98 - 107 mmol/ L 02/14 5:54 PM CDT [facility] Not Available Not Available 10/23/2024 16:31:15 02/15/20 24 02/15/2024 Compr ehens mickey metab olic 1999 panel - Serum or Plasm a carbon dioxide, total [moles/volum e] in serum or plasma 22 mmol/ L low: 22mmol /Lhigh : 29mmol /L CO2 22 22 - 29 mmol/ L 02/14 5:54 PM CDT [facility] Not Available Not Available 10/23/2024 16:31:15 02/15/20 24 02/15/2024 Compr ehens mickey metab olic 1999 panel - Serum or Plasm a calcium [mass/volume ] in serum or plasma 10.3 mg/dL low: 8.4mg/ dLhigh : 10.4mg /dL Calci um 10.3 8.4 - 10.4 mg/dL 02/14 5:54 PM CDT [facility] Not Available Not Available 10/23/2024 16:31:15 02/15/20 24 02/15/2024 Compr ehens mickey metab olic 1999 panel - Serum or Plasm a anion gap in blood by calculation 8 mmol/ L low: 6mmol/ Lhigh: 16mmol /L Anion Gap 8 6 - 16 mmol/ L 02/14 5:54 PM CDT [facility] Not Available Not Available 10/23/2024 16:31:15 02/15/20 24 02/15/2024 Compr ehens mickey metab olic 1999 panel - Serum or Plasm a urea nitrogen [mass/volume ] in serum or plasma 5 mg/dL low: 5.3mg/ dLhigh : 18.7mg /dL low BUN 5 (L) 5.3 - 18.7 mg/dL 02/14 5:54 PM CDT [facility] Not Available Not Available 10/23/2024 16:31:15 02/15/20 24 02/15/2024 Compr [employer] mickey metab olic 1999 panel - Serum or Plasm a creatinine [mass/volume ] in serum or plasma 0.74 mg/dL low: 0.57mg /dLhig h: 1.11mg /dL Creat inine 0.74 0.57 - 1.11 mg/dL 02/14 5:54 PM CDT [facility] Not Available Not Available 10/23/2024 16:31:15 02/15/20 24 02/15/2024 Compr [employer] mickey metab olic 1999 panel - Serum or Plasm a alkaline phosphatase [enzymatic activity/vol ume] in serum or plasma 61 U/L low: 40U/Lh igh: 150U/L Alkal ine Phosp hatas e 61 40 - 150 U/L 02/14 5:54 PM CDT [facility] Not Available Not Available 10/23/2024 16:31:15 02/15/20 24 02/15/2024 Compr [employer] mickey metab olic 1999 panel - Serum or Plasm a alanine aminotransfe rase [enzymatic activity/vol ume] in serum or plasma 11 U/L low: 0U/Lhi gh: 55U/L ALT 11 0 - 55 U/L 02/14 5:54 PM CDT [facility] Not Available Not Available 10/23/2024 16:31:15 02/15/20 24 02/15/2024 Compr ehens mickey metab olic 2000 panel - Serum or Plasm a aspartate aminotransfe rase [enzymatic activity/vol ume] in serum or plasma 20 U/L low: 5U/Lhi gh: 34U/L AST 20 5 - 34 U/L 02/14 5:54 PM CDT [facility] Not Available Not Available 10/23/2024 16:31:15 02/15/20 24 02/15/2024 Compr [employer] mickey [employer] olic 1999 panel - Serum or Plasm a protein [mass/volume ] in serum or plasma 7.8 text: 6.4 - 8.3 gm/dL Prote in Total 7.8 6.4 - 8.3 gm/dL 02/14 5:54 PM CDT [facility] Not Available Not Available 10/23/2024 16:31:15 02/15/20 24 02/15/2024 Compr [employer] mickey [employer] olic 2000 panel - Serum or Plasm a albumin [mass/volume ] in serum or plasma 3.4 text: 3.4 - 5.0 gm/dL Album in 3.4 3.4 - 5.0 gm/dL 02/14 5:54 PM CDT [facility] Not Available Not Available 10/23/2024 16:31:15 02/15/20 24 02/15/2024 Compr [employer] olic 1999 panel - Serum or Plasm a bilirubin.to neda [mass/volume ] in serum or plasma 0.3 mg/dL low: 0.2mg/ dLhigh : 1.2mg/ dL Bilir ubin Total 0.3 0.2 - 1.2 mg/dL 02/14 5:54 PM CDT [facility] Not Available Not Available 10/23/2024 16:31:15 02/15/20 24 02/15/2024 Compr [employer] mickey [employer] olic 2000 panel - Serum or Plasm a glomerular filtration rate [volume rate/area] in serum, plasma or blood by creatinine-b ased formula (CKD-epi)/1. 73 sq M text: >=90 mL/min /1.73 m2 eGFR by CKD-E PI >90 >=90 mL/mi n/1.7 3 m2 02/14 5:54 PM CDT [facility] Not Available Not Available 10/23/2024 16:31:15 02/15/20 24 02/15/2024 Compr ehens mickey metab olic 2000 panel - Serum or Plasm a interpretati on and review of laboratory results Abnorm al Not Available Not Available 16:31:15 02/15/20 24 02/16/2024 Chlam ydia trach omati s+Nei sseri a gonor rhoea e rRNA [Pres ence] in Speci men by Probe chlamydia trachomatis rrna [presence] in specimen by ML with probe detection Negati ve text: negati ve Chlam ydia Ampli fied Probe Negat mickey Negat mickey 02/14 11:55 PM CDT [facility] Not Available Not Available 10/23/2024 16:31:15 02/15/20 24 02/16/2024 Chlam ydia trach omati s+Nei sseri a gonor rhoea e rRNA [Pres ence] in Speci men by Probe neisseria gonorrhoeae rrna [presence] in specimen by ML with probe detection Negati ve text: negati ve GC Ampli fied Probe Negat mickey Negat mickey 02/14 11:55 PM CDT [facility] Not Available Not Available 10/23/2024 16:31:15 02/15/20 24 02/16/2024 Chlam ydia trach omati s+Nei sseri a gonor rhoea e rRNA [Pres ence] in Speci men by Probe Unknown Analyte Result s based on detect ion/no detect ion of riboso mal RNA by amplif ied method . Resul ts based on detec tion/ no detec tion of ribos omal RNA by ampli fied metho d. Not Available Not Available 10/23/2024 16:31:15 02/15/20 24 02/16/2024 Chlam ydia trach omati s+Nei sseri a gonor rhoea e rRNA [Pres ence] in Speci men by Probe interpretati on and review of laboratory results Normal Not Available Not Available 10/10 16:31:15 02/15/20 24 02/21/2024 Human papil regino virus 16+18 +31+3 3+35+ 39+45 +51+5 2+56+ 58+59 +66+6 8 DNA [Pres ence] in Cervi x by Probe with signa l ampli ficat ion pathology report final diagnosis narrative Katie nieves Diagn osis Comme nt 02/20 7:07 PM CDT [facility] ([facility] ) Not Available Not Available 10/23/2024 16:31:15 02/15/20 24 02/21/2024 Human papil regino virus 16+18 +31+3 3+35+ 39+45 +51+5 2+56+ 58+59 +66+6 8 DNA [Pres ence] in Cervi x by Probe with signa l ampli ficat ion statement of adequacy [interpretat ion] of cervical or vaginal smear or scraping by cyto stain Katie nieves Speci men Adequ acy Bethe nt 02/20 7:07 PM CDT [facility] ([facility] ) Not Available Not Available 10/23/2024 16:31:15 02/15/20 24 02/21/2024 Human papil regino virus 16+18 +31+3 3+35+ 39+45 +51+5 2+56+ 58+59 +66+6 8 DNA [Pres ence] in Cervi x by Probe with signa l ampli ficat ion performed by Katie nieves Perfo rmed by Deisy nt 02/20 7:07 PM CDT [facility] ([facility] ) Not Available Not Available 10/23/2024 16:31:15 02/15/20 24 02/21/2024 Human papil regino virus 16+18 +31+3 3+35+ 39+45 +51+5 2+56+ 58+59 +66+6 8 DNA [Pres ence] in Cervi x by Probe with signa l ampli ficat ion microscopic observation [identifier] in specimen by other stain . Comme nt . 02/20 7:07 PM CDT [facility] ([facility] ) Not Available Not Available 10/23/2024 16:31:15 02/15/20 24 02/21/2024 Human papil regino virus 16+18 +31+3 3+35+ 39+45 +51+5 2+56+ 58+59 +66+6 8 DNA [Pres ence] in Cervi x by Probe with signa l ampli ficat ion note Commen t Note Comme nt 02/20 7:07 PM CDT [facility] ([facility] ) Not Available Not Available 10/23/2024 16:31:15 02/15/20 24 02/21/2024 Human papil regino virus 16+18 +31+3 3+35+ 39+45 +51+5 2+56+ 58+59 +66+6 8 DNA [Pres ence] in Cervi x by Probe with signa l ampli ficat ion iglbp CPT code automation Commen t IGLBP CPT Code Autom ation Comme nt 02/20 7:07 PM CDT [facility] ([facility] ) Not Available Not Available 10/23/2024 16:31:15 02/15/20 24 02/21/2024 Human papil regino virus 16+18 +31+3 3+35+ 39+45 +51+5 2+56+ 58+59 +66+6 8 DNA [Pres ence] in Cervi x by Probe with signa l ampli ficat ion human papillomavir us aptima Positi ve text: negati ve abnormal Human papil lomav irus Aptim a Posit mickey (A) Negat mickey 02/20 7:07 PM CDT [facility] ([facility] ) Not Available Not Available 10/23/2024 16:31:15 02/15/20 24 02/21/2024 Human papil regino virus 16+18 +31+3 3+35+ 39+45 +51+5 2+56+ 58+59 +66+6 8 DNA [Pres ence] in Cervi x by Probe with signa l ampli ficat ion Unknown Analyte Perfor med at: 01 - [facility] [place] [address], [place] [address] 645 Lab Direct or: Gely Trent MD, Perfor med at: 02 - [facility] [address] [facility] [place] [place] [id number] [facility] or: Gely Trent MD, Specim en Commen t: No. of contai ners.. 01 ThinPr ep Vial Perfo rmed at: 01 - [facility] [address] [place] [id number] Lab Direc tor: Jaqueline hu MD, Phone : [phone] Perfo rmed at: 02 - [facility] [address] [place] [address] Lab Direc tor: Jaqueline hu MD, Phone : [phone] Speci men Comme nt: No. of conta iners ..01 ThinP rep Vial Not Available Not Available 10/23/2024 16:31:15 02/15/20 24 02/21/2024 Human papil regino virus 16+18 +31+3 3+35+ 39+45 +51+5 2+56+ 58+59 +66+6 8 DNA [Pres ence] in Cervi x by Probe with signa l ampli ficat ion interpretati on and review of laboratory results Abnorm al Not Available Not Available 16:31:15 02/15/20 24 02/15/2024 Urina lysis dipst ick panel - Urine by Autom ated test strip color of urine Yellow text: straw, yellow , dark yellow , light yellow Color UA POCT Yello w Straw , Yello w, Dark Yello w, Light Yello w 02/14 3:52 PM CDT [facility] Not Available Not Available 10/23/2024 16:31:13 02/15/20 24 02/15/2024 Urina lysis dipst ick panel - Urine by Autom ated test strip clarity of urine Clear text: clear Taylor ty UA POCT Clear Clear 02/14 3:52 PM CDT [facility] Not Available Not Available 10/23/2024 16:31:13 02/15/20 24 02/15/2024 Urina lysis dipst ick panel - Urine by Autom ated test strip urinalysis dipstick panel - urine by automated test strip 1.025 low: 1.005h igh: 1.03 Speci fic Gravi ty UA POCT 1.025 1.005 - 1.030 02/14 3:52 PM CDT [facility] Not Available Not Available 10/23/2024 16:31:13 02/15/20 24 02/15/2024 Urina lysis dipst ick panel - Urine by Autom ated test strip pH of urine by test strip 7 pH low: 5pHhig h: 8pH pH UA POCT 7.0 5.0 - 8.0 pH 02/14 3:52 PM CDT [facility] Not Available Not Available 10/23/2024 16:31:13 02/15/20 24 02/15/2024 Urina lysis dipst ick panel - Urine by Autom ated test strip protein [presence] in urine by test strip Negati ve text: negati ve Prote in UA POCT Negat mickey Negat mickey 02/14 3:52 PM CDT [facility] Not Available Not Available 10/23/2024 16:31:13 02/15/20 24 02/15/2024 Urina lysis dipst ick panel - Urine by Autom ated test strip hemoglobin [presence] in urine by test strip Negati ve text: negati ve Blood UA POCT Negat mickey Negat mickey 02/14 3:52 PM CDT [facility] Not Available Not Available 10/23/2024 16:31:13 02/15/20 24 02/15/2024 Urina lysis dipst ick panel - Urine by Autom ated test strip leukocyte esterase [presence] in urine by test strip 2+ text: negati ve abnormal Leuko cyte UA POCT 2+ (A) Negat mickey 02/14 3:52 PM CDT [facility] Not Available Not Available 10/23/2024 16:31:13 02/15/20 24 02/15/2024 Urina lysis dipst ick panel - Urine by Autom ated test strip nitrite [presence] in urine by test strip Negati ve text: negati ve Nitri te UA POCT Negat mickey Negat mickey 02/14 3:52 PM CDT [facility] Not Available Not Available 10/23/2024 16:31:13 02/15/20 24 02/15/2024 Urina lysis dipst ick panel - Urine by Autom ated test strip glucose [presence] in urine by test strip Negati ve text: negati ve Gluco se UA POCT Negat mickey Negat mickey 02/14 3:52 PM CDT [facility] Not Available Not Available 10/23/2024 16:31:13 02/15/20 24 02/15/2024 Urina lysis dipst ick panel - Urine by Autom ated test strip ketones [presence] in urine by test strip Negati ve text: negati ve Keton e UA POCT Negat mickey Negat mickey 02/14 3:52 PM CDT [facility] Not Available Not Available 10/23/2024 16:31:13 02/15/20 24 02/15/2024 Urina lysis dipst ick panel - Urine by Autom ated test strip bilirubin.to neda [presence] in urine by test strip Negati ve text: negati ve Bilir ubin UA POCT Negat mickey Negat mickey 02/14 3:52 PM CDT [facility] Not Available Not Available 10/23/2024 16:31:13 02/15/20 24 02/15/2024 Urina lysis dipst ick panel - Urine by Autom ated test strip urobilinogen [units/volum e] in urine by test strip 1 eu/dL low: 0.1eu/ dLhigh : 1eu/dL Urobi linog en UA POCT 1.0 0.1 - 1.0 EU/dL 02/14 3:52 PM CDT [facility] Not Available Not Available 10/23/2024 16:31:13 02/15/20 24 02/15/2024 Urina lysis dipst ick panel - Urine by Autom ated test strip interpretati on and review of laboratory results Abnorm al Not Available Not Available 16:31:13 03/14/20 24 03/15/2024 Bacte michelle ident ified in Urine by Cultu re bacteria identified in urine by culture <10,00 0 CFU/mL urogen ital meghna Cultu re Urine <10,0 00 CFU/m L uroge nital meghna FISH 03/15 10:03 PM CDT [facility] Not Available Not Available 10/23/2024 16:32:35 03/14/20 24 03/14/2024 Urina lysis dipst ick panel - Urine by Autom ated test strip color of urine Yellow text: straw, yellow , dark yellow , light yellow Color UA POCT Yello w Straw , Yello w, Dark Yello w, Light Yello w 03/14 3:10 PM CDT [facility] Not Available Not Available 10/23/2024 16:32:35 03/14/20 24 03/14/2024 Urina lysis dipst ick panel - Urine by Autom ated test strip clarity of urine Clear text: clear Taylor ty UA POCT Clear Clear 03/14 3:10 PM CDT [facility] Not Available Not Available 10/23/2024 16:32:35 03/14/20 24 03/14/2024 Urina lysis dipst ick panel - Urine by Autom ated test strip urinalysis dipstick panel - urine by automated test strip 1.02 low: 1.005h igh: 1.03 Speci fic Gravi ty UA POCT 1.020 1.005 - 1.030 03/14 3:10 PM CDT [facility] Not Available Not Available 10/23/2024 16:32:35 03/14/20 24 03/14/2024 Urina lysis dipst ick panel - Urine by Autom ated test strip pH of urine by test strip 7 pH low: 5pHhig h: 8pH pH UA POCT 7.0 5.0 - 8.0 pH 03/14 3:10 PM CDT [facility] Not Available Not Available 10/23/2024 16:32:35 03/14/20 24 03/14/2024 Urina lysis dipst ick panel - Urine by Autom ated test strip protein [presence] in urine by test strip Negati ve text: negati ve Prote in UA POCT Negat mickey Negat mickey 03/14 3:10 PM CDT [facility] Not Available Not Available 10/23/2024 16:32:35 03/14/20 24 03/14/2024 Urina lysis dipst ick panel - Urine by Autom ated test strip hemoglobin [presence] in urine by test strip Negati ve text: negati ve Blood UA POCT Negat mickey Negat mickey 03/14 3:10 PM CDT [facility] Not Available Not Available 10/23/2024 16:32:35 03/14/20 24 03/14/2024 Urina lysis dipst ick panel - Urine by Autom ated test strip leukocyte esterase [presence] in urine by test strip 1+ text: negati ve abnormal Leuko cyte UA POCT 1+ (A) Negat mickey 03/14 3:10 PM CDT [facility] Not Available Not Available 10/23/2024 16:32:35 03/14/20 24 03/14/2024 Urina lysis dipst ick panel - Urine by Autom ated test strip nitrite [presence] in urine by test strip Negati ve text: negati ve Nitri te UA POCT Negat mickey Negat mickey 03/14 3:10 PM CDT [facility] Not Available Not Available 10/23/2024 16:32:35 03/14/20 24 03/14/2024 Urina lysis dipst ick panel - Urine by Autom ated test strip glucose [presence] in urine by test strip Negati ve text: negati ve Gluco se UA POCT Negat mickey Negat mickey 03/14 3:10 PM CDT [facility] Not Available Not Available 10/23/2024 16:32:35 03/14/20 24 03/14/2024 Urina lysis dipst ick panel - Urine by Autom ated test strip ketones [presence] in urine by test strip Trace text: negati ve abnormal Keton e UA POCT Trace (A) Negat mickey 03/14 3:10 PM CDT [facility] Not Available Not Available 10/23/2024 16:32:35 03/14/20 24 03/14/2024 Urina lysis dipst ick panel - Urine by Autom ated test strip bilirubin.to neda [presence] in urine by test strip Negati ve text: negati ve Bilir ubin UA POCT Negat mickey Negat mickey 03/14 3:10 PM CDT [facility] Not Available Not Available 10/23/2024 16:32:35 03/14/20 24 03/14/2024 Urina lysis dipst ick panel - Urine by Autom ated test strip urobilinogen [units/volum e] in urine by test strip 0.2 eu/dL low: 0.1eu/ dLhigh : 1eu/dL Urobi linog en UA POCT 0.2 0.1 - 1.0 EU/dL 03/14 3:10 PM CDT [facility] Not Available Not Available 10/23/2024 16:32:35 03/14/20 24 03/14/2024 Urina lysis dipst ick panel - Urine by Autom ated test strip interpretati on and review of laboratory results Abnorm al Not Available Not Available 16:32:35 03/20/20 24 03/20/2024 Phosp hate [Mass /volu me] in Serum or Plasm a phosphate [mass/volume ] in serum or plasma 3.1 mg/dL low: 2.3mg/ dLhigh : 4.7mg/ dL Phosp horus 3.1 2.3 - 4.7 mg/dL 03/20 8:04 PM T [facility] Not Available Not Available 10/23/2024 16:31:18 03/20/20 24 03/20/2024 Phosp hate [Mass /volu me] in Serum or Plasm a interpretati on and review of laboratory results Normal Not Available Not Available 10/10 16:31:18 03/20/20 24 03/20/2024 Magne sium [Mass /volu me] in Serum or Plasm a magnesium [mass/volume ] in serum or plasma 1.9 mg/dL low: 1.6mg/ dLhigh : 2.6mg/ dL Magne sium 1.9 1.6 - 2.6 mg/dL 03/20 8:04 PM [facility] Not Available Not Available 10/23/2024 16:31:18 03/20/20 24 03/20/2024 Magne sium [Mass /volu me] in Serum or Plasm a interpretati on and review of laboratory results Normal Not Available Not Available 10/10 16:31:18 03/20/20 24 03/20/2024 Compr ehens mickey metab olic 1999 panel - Serum or Plasm a glucose [mass/volume ] in serum or plasma 83 mg/dL low: 70mg/d Lhigh: 105mg/ dL Gluco se 83 70 - 105 mg/dL 03/20 8:04 PM CDT [facility] Not Available Not Available 10/23/2024 16:31:18 03/20/20 24 03/20/2024 Compr ehens mickey metab olic 1999 panel - Serum or Plasm a sodium [moles/volum e] in serum or plasma 136 mmol/ L low: 136mmo l/Lhig h: 145mmo l/L Sodiu m 136 136 - 145 mmol/ L 03/20 8:04 PM CDT [facility] Not Available Not Available 10/23/2024 16:31:18 03/20/20 24 03/20/2024 Compr ehens mickey metab olic 1999 panel - Serum or Plasm a potassium [moles/volum e] in serum or plasma 3.7 mmol/ L low: 3.5mmo l/Lhig h: 5.1mmo l/L Potas sium 3.7 3.5 - 5.1 mmol/ L 03/20 8:04 PM CDT [facility] Not Available Not Available 10/23/2024 16:31:18 03/20/20 24 03/20/2024 Compr ehens mickey metab olic 1999 panel - Serum or Plasm a chloride [moles/volum e] in serum or plasma 107 mmol/ L low: 98mmol /Lhigh : 107mmo l/L Chlor emmanuel 107 98 - 107 mmol/ L 03/20 8:04 PM CDT [facility] Not Available Not Available 10/23/2024 16:31:18 03/20/20 24 03/20/2024 Compr ehens mickey metab olic 1999 panel - Serum or Plasm a carbon dioxide, total [moles/volum e] in serum or plasma 21 mmol/ L low: 22mmol /Lhigh : 29mmol /L low CO2 21 (L) 22 - 29 mmol/ L 03/20 8:04 PM T [facility] Not Available Not Available 10/23/2024 16:31:18 03/20/20 24 03/20/2024 [facility] [employer] mickey [employer] [facility] 1999 panel - Serum or Plasm a calcium [mass/volume ] in serum or plasma 10 mg/dL low: 8.4mg/ dLhigh : 10.4mg /dL Calci um 10.0 8.4 - 10.4 mg/dL 03/20 8:04 PM T [facility] Not Available Not Available 10/23/2024 16:31:18 03/20/20 24 03/20/2024 Compr [employer] mickey [employer] [place] 1999 panel - Serum or Plasm a anion gap in blood by calculation 8 mmol/ L low: 6mmol/ Lhigh: 16mmol /L Anion Gap 8 6 - 16 mmol/ L 03/20 8:04 PM [facility] Not Available Not Available 10/23/2024 16:31:18 03/20/20 24 03/20/2024 [facility] [employer] [facility] 1999 panel - Serum or Plasm a urea nitrogen [mass/volume ] in serum or plasma 7 mg/dL low: 5.3mg/ dLhigh : 18.7mg /dL BUN 7 5.3 - 18.7 mg/dL 03/20 8:04 PM [facility] Not Available Not Available 10/23/2024 16:31:18 03/20/20 24 03/20/2024 Compr [employer] [facility] 1999 panel - Serum or Plasm a creatinine [mass/volume ] in serum or plasma 0.75 mg/dL low: 0.57mg /dLhig h: 1.11mg /dL Creat inine 0.75 0.57 - 1.11 mg/dL 03/20 8:04 PM [facility] Not Available Not Available 10/23/2024 16:31:18 03/20/20 24 03/20/2024 Compr [employer] mickey [employer] ic 1999 panel - Serum or Plasm a alkaline phosphatase [enzymatic activity/vol ume] in serum or plasma 78 U/L low: 40U/Lh igh: 150U/L Alkal ine Phosp hatas e 78 40 - 150 U/L 03/20 8:04 PM CDT [facility] Not Available Not Available 10/23/2024 16:31:18 03/20/20 24 03/20/2024 Compr [employer] mickey metab olic 1999 panel - Serum or Plasm a alanine aminotransfe rase [enzymatic activity/vol ume] in serum or plasma 13 U/L low: 0U/Lhi gh: 55U/L ALT 13 0 - 55 U/L 03/20 8:04 PM CDT [facility] Not Available Not Available 10/23/2024 16:31:18 03/20/20 24 03/20/2024 Compr [employer] mickey metab olic 2000 panel - Serum or Plasm a aspartate aminotransfe rase [enzymatic activity/vol ume] in serum or plasma 18 U/L low: 5U/Lhi gh: 34U/L AST 18 5 - 34 U/L 03/20 8:04 PM CDT [facility] Not Available Not Available 10/23/2024 16:31:18 03/20/20 24 03/20/2024 Compr [employer] mickey metab olic 1999 panel - Serum or Plasm a protein [mass/volume ] in serum or plasma 7.8 text: 6.4 - 8.3 gm/dL Prote in Total 7.8 6.4 - 8.3 gm/dL 03/20 8:04 PM CDT [facility] Not Available Not Available 10/23/2024 16:31:18 03/20/20 24 03/20/2024 Compr [employer] mickey metab olic 1999 panel - Serum or Plasm a albumin [mass/volume ] in serum or plasma 3.2 text: 3.4 - 5.0 gm/dL low Album in 3.2 (L) 3.4 - 5.0 gm/dL 03/20 8:04 PM CDT [facility] Not Available Not Available 10/23/2024 16:31:18 03/20/20 24 03/20/2024 Compr ehens mickey metab olic 1999 panel - Serum or Plasm a bilirubin.to neda [mass/volume ] in serum or plasma 0.4 mg/dL low: 0.2mg/ dLhigh : 1.2mg/ dL Bilir ubin Total 0.4 0.2 - 1.2 mg/dL 03/20 8:04 PM CDT [employer] [facility] Not Available Not Available 10/23/2024 16:31:18 03/20/20 24 03/20/2024 Compr ehens mickey metab olic 2000 panel - Serum or Plasm a glomerular filtration rate [volume rate/area] in serum, plasma or blood by creatinine-b ased formula (CKD-epi)/1. 73 sq M text: >=90 mL/min /1.73 m2 eGFR by CKD-E PI >90 >=90 mL/mi n/1.7 3 m2 03/20 8:04 PM CDT [facility] Not Available Not Available 10/23/2024 16:31:18 03/20/20 24 03/20/2024 Compr ehens mickey metab olic 2000 panel - Serum or Plasm a interpretati on and review of laboratory results Abnorm al Not Available Not Available 16:31:18 03/20/20 24 03/20/2024 CBC panel - Blood by Autom ated count leukocytes [#/volume] in blood by automated count 9.6 text: 4.0 - 10.7 x10e9/ L WBC 9.6 4.0 - 10.7 x10E9 /L 03/20 7:49 PM CDT [facility] Not Available Not Available 10/23/2024 16:31:18 03/20/20 24 03/20/2024 CBC panel - Blood by Autom ated count erythrocytes [#/volume] in blood by automated count 3.6 text: 3.90 - 5.20 x10e12 /L low RBC Count 3.60 (L) 3.90 - 5.20 x10E1 2/L 03/20 7:49 PM CDT [facility] [facility] Not Available Not Available 10/23/2024 16:31:18 03/20/20 24 03/20/2024 CBC panel - Blood by Autom ated count hemoglobin [mass/volume ] in blood 9.6 g/dL low: 11.9g/ dLhigh : 15.8g/ dL low Hemog lobin 9.6 (L) 11.9 - 15.8 g/dL 03/20 7:49 PM [facility] Not Available Not Available 10/23/2024 16:31:18 03/20/20 24 03/20/2024 CBC panel - Blood by Autom ated count hematocrit [volume fraction] of blood by automated count 31 % low: 34.8%h igh: 46.1% low Hemat ocrit 31.0 (L) 34.8 - 46.1 % 03/20 7:49 PM [facility] Not Available Not Available 10/23/2024 16:31:18 03/20/20 24 03/20/2024 CBC panel - Blood by Autom ated count MCV [entitic mean volume] in red blood cells by automated count 86.1 fL low: 80fLhi gh: 98fL MCV 86.1 80.0 - 98.0 fL 03/20 7:49 PM [facility] Not Available Not Available 10/23/2024 16:31:18 03/20/20 24 03/20/2024 CBC panel - Blood by Autom ated count MCH [entitic mass] by automated count 26.7 pg low: 26.7pg high: 33.6pg MCH 26.7 26.7 - 33.6 pg 03/20 7:49 PM [facility] Not Available Not Available 10/23/2024 16:31:18 03/20/20 24 03/20/2024 CBC panel - Blood by Autom ated count MCHC [entitic mass/volume] in red blood cells by automated count 31 g/dL low: 31.7g/ dLhigh : 36.3g/ dL low MCHC 31.0 (L) 31.7 - 36.3 g/dL 03/20 7:49 PM [facility] Not Available Not Available 10/23/2024 16:31:18 03/20/20 24 03/20/2024 CBC panel - Blood by Autom ated count erythrocyte [distwidth] in red blood cells by automated count 18.8 % low: 11.3%h igh: 14.8% high RDW-C V 18.8 (H) 11.3 - 14.8 % 03/20 7:49 PM CDT [facility] Not Available Not Available 10/23/2024 16:31:18 03/20/20 24 03/20/2024 CBC panel - Blood by Autom ated count platelets [#/volume] in blood by automated count 248 text: 150 - 420 x10e9/ L Plate let Count 248 150 - 420 x10E9 /L 03/20 7:49 PM CDT [facility] Not Available Not Available 10/23/2024 16:31:18 03/20/20 24 03/20/2024 CBC panel - Blood by Autom ated count platelet [entitic mean volume] in blood by automated count 10.6 fL low: 7.8fLh igh: 11.4fL MPV 10.6 7.8 - 11.4 fL 03/20 7:49 PM CDT [facility] Not Available Not Available 10/23/2024 16:31:18 03/20/20 24 03/20/2024 CBC panel - Blood by Autom ated count interpretati on and review of laboratory results Abnorm al Not Available Not Available 16:31:18 03/20/20 24 03/20/2024 Keton es [Mass /volu me] in Urine ketone UA Neg text: negati ve Keton e UA Neg Negat mickey [facility] NG Not Available Not Available 10/23/2024 16:31:17 03/20/20 24 03/20/2024 Keton es [Mass /volu me] in Urine QC verified Yes text: yes QC Verif ied Yes Yes [facility] Not Available Not Available 10/23/2024 16:31:17 03/20/20 24 03/20/2024 Gluco se [Mass /volu me] in Arter ial blood glucose [mass/volume ] in capillary blood by glucometer 78 mg/dL low: 70mg/d Lhigh: 106mg/ dL Gluco se WB/PO C 78 70 - 106 mg/dL 03/20 6:10 PM CDT [facility] Not Available Not Available 10/23/2024 16:31:17 09/09/03/20/2024 Gluco se [Mass /volu me] in Arter ial blood specimen source identified Cap Finger stick Speci men Type Cap Finge rstic k 03/20 6:10 PM CDT [facility] Not Available Not Available 10/23/2024 16:31:17 04/04/20 24 04/04/2024 Gluco se [Mass /volu me] in Serum or Plasm a glucose [mass/volume ] in serum or plasma --1st specimen post xxx challenge 108 mg/dL low: 64mg/d Lhigh: 140mg/ dL Gluco se [place] 108 64 - 140 mg/dL 04/04 5:07 PM CDT [facility] Not Available Not Available 10/23/2024 16:25:17 04/04/20 24 04/04/2024 Gluco se [Mass /volu me] in Serum or Plasm a length of time post dose Gluco se [place]ge Time 04/04 5:07 PM CDT [facility] Not Available Not Available 10/23/2024 16:25:17 04/04/20 24 04/04/2024 HIV 1+2 Ab+HI V1 p24 Ag [Pres ence] in Serum or Plasm a by Immun oassa y HIV 1+2 Ab+HIV1 P24 Ag [presence] in serum or plasma by immunoassay Non Reacti ve text: non reacti ve HIV1/ 2 Ab + P24 Ag Non React mickey Non React mickey 04/04 5:21 PM CDT [facility] Not Available Not Available 10/23/2024 16:25:17 04/04/20 24 04/04/2024 HIV 1+2 Ab+HI V1 p24 Ag [Pres ence] in Serum or Plasm a by Immun oassa y Unknown Analyte No Labora tory eviden ce of HIV infect ion. No Labor atory evide nce of HIV infec tion. Not Available Not Available 10/23/2024 16:25:17 04/04/20 24 04/04/2024 HIV 1+2 Ab+HI V1 p24 Ag [Pres ence] in Serum or Plasm a by Immun oassa y interpretati on and review of laboratory results Normal Not Available Not Available 10/10 16:25:17 04/04/20 24 04/04/2024 Urina lysis dipst ick panel - Urine by Autom ated test strip color of urine Dark Yellow text: straw, yellow , dark yellow , light yellow Color UA POCT Dark Yello w Straw , Yello w, Dark Yello w, Light Yello w 04/04 3:29 PM CDT [facility] Not Available Not Available 10/23/2024 16:25:17 04/04/20 24 04/04/2024 Urina lysis dipst ick panel - Urine by Autom ated test strip clarity of urine Clear text: clear Taylor ty UA POCT Clear Clear 04/04 3:29 PM CDT [facility] Not Available Not Available 10/23/2024 16:25:17 04/04/20 24 04/04/2024 Urina lysis dipst ick panel - Urine by Autom ated test strip urinalysis dipstick panel - urine by automated test strip low: 1.005h igh: 1.03 Speci fic Gravi ty UA POCT >=1.0 30 1.005 - 1.030 04/04 3:29 PM CDT [facility] Not Available Not Available 10/23/2024 16:25:17 04/04/2004/04/2024 Urina lysis dipst ick panel - Urine by Autom ated test strip pH of urine by test strip 6.5 pH low: 5pHhig h: 8pH pH UA POCT 6.5 5.0 - 8.0 pH 04/04 3:29 PM CDT [facility] Not Available Not Available 10/23/2024 16:25:17 04/04/20 24 04/04/2024 Urina lysis dipst ick panel - Urine by Autom ated test strip protein [presence] in urine by test strip Trace text: negati ve abnormal Prote in UA POCT Trace (A) Negat mickey 04/04 3:29 PM CDT [facility] Not Available Not Available 10/23/2024 16:25:17 04/04/20 24 04/04/2024 Urina lysis dipst ick panel - Urine by Autom ated test strip hemoglobin [presence] in urine by test strip Negati ve text: negati ve Blood UA POCT Negat mickey Negat mickey 04/04 3:29 PM CDT [facility] Not Available Not Available 10/23/2024 16:25:17 04/04/20 24 04/04/2024 Urina lysis dipst ick panel - Urine by Autom ated test strip leukocyte esterase [presence] in urine by test strip 2+ text: negati ve abnormal Leuko cyte UA POCT 2+ (A) Negat mickey 04/04 3:29 PM CDT [facility] Not Available Not Available 10/23/2024 16:25:17 04/04/20 24 04/04/2024 Urina lysis dipst ick panel - Urine by Autom ated test strip nitrite [presence] in urine by test strip Negati ve text: negati ve Nitri te UA POCT Negat mickey Negat mickey 04/04 3:29 PM CDT [facility] Not Available Not Available 10/23/2024 16:25:17 04/04/20 24 04/04/2024 Urina lysis dipst ick panel - Urine by Autom ated test strip glucose [presence] in urine by test strip Negati ve text: negati ve Gluco se UA POCT Negat mickey Negat mickey 04/04 3:29 PM CDT [facility] Not Available Not Available 10/23/2024 16:25:17 04/04/20 24 04/04/2024 Urina lysis dipst ick panel - Urine by Autom ated test strip ketones [presence] in urine by test strip Negati ve text: negati ve Keton e UA POCT Negat mickey Negat mickey 04/04 3:29 PM CDT [facility] Not Available Not Available 10/23/2024 16:25:17 04/04/20 24 04/04/2024 Urina lysis dipst ick panel - Urine by Autom ated test strip bilirubin.to neda [presence] in urine by test strip Negati ve text: negati ve Bilir ubin UA POCT Negat mickey Negat mickey 04/04 3:29 PM CDT [facility] Not Available Not Available 10/23/2024 16:25:17 04/04/20 24 04/04/2024 Urina lysis dipst ick panel - Urine by Autom ated test strip urobilinogen [units/volum e] in urine by test strip 1 eu/dL low: 0.1eu/ dLhigh : 1eu/dL Urobi linog en UA POCT 1.0 0.1 - 1.0 EU/dL 04/04 3:29 PM CDT [facility] Not Available Not Available 10/23/2024 16:25:17 04/04/20 24 04/04/2024 Urina lysis dipst ick panel - Urine by Autom ated test strip interpretati on and review of laboratory results Abnorm al Not Available Not Available 16:25:17 04/18/20 24 04/18/2024 CBC panel - Blood by Autom ated count leukocytes [#/volume] in blood by automated count 9.3 text: 4.0 - 10.7 x10e9/ L WBC 9.3 4.0 - 10.7 x10E9 /L 04/18 4:33 PM CDT [facility] Not Available Not Available 10/23/2024 16:25:15 04/18/20 24 04/18/2024 CBC panel - Blood by Autom ated count erythrocytes [#/volume] in blood by automated count 4.2 text: 3.90 - 5.20 x10e12 /L RBC Count 4.20 3.90 - 5.20 x10E1 2/L 04/18 4:33 PM CDT [facility] Not Available Not Available 10/23/2024 16:25:15 04/18/20 24 04/18/2024 CBC panel - Blood by Autom ated count hemoglobin [mass/volume ] in blood 12 g/dL low: 11.9g/ dLhigh : 15.8g/ dL Hemog lobin 12.0 11.9 - 15.8 g/dL 04/18 4:33 PM CDT [facility] Not Available Not Available 10/23/2024 16:25:15 04/18/20 24 04/18/2024 CBC panel - Blood by Autom ated count hematocrit [volume fraction] of blood by automated count 38.3 % low: 34.8%h igh: 46.1% Hemat ocrit 38.3 34.8 - 46.1 % 04/18 4:33 PM T [facility] Not Available Not Available 10/23/2024 16:25:15 04/18/20 24 04/18/2024 CBC panel - Blood by Autom ated count MCV [entitic mean volume] in red blood cells by automated count 91.2 fL low: 80fLhi gh: 98fL MCV 91.2 80.0 - 98.0 fL 04/18 4:33 PM CDT [facility] Not Available Not Available 10/23/2024 16:25:15 04/18/20 24 04/18/2024 CBC panel - Blood by Autom ated count MCH [entitic mass] by automated count 28.6 pg low: 26.7pg high: 33.6pg MCH 28.6 26.7 - 33.6 pg 04/18 4:33 PM T [facility] Not Available Not Available 10/23/2024 16:25:15 04/18/20 24 04/18/2024 CBC panel - Blood by Autom ated count MCHC [entitic mass/volume] in red blood cells by automated count 31.3 g/dL low: 31.7g/ dLhigh : 36.3g/ dL low MCHC 31.3 (L) 31.7 - 36.3 g/dL 04/18 4:33 PM T [facility] Not Available Not Available 10/23/2024 16:25:15 04/18/20 24 04/18/2024 CBC panel - Blood by Autom ated count erythrocyte [distwidth] in red blood cells by automated count 21 % low: 11.3%h igh: 14.8% high RDW-C V 21.0 (H) 11.3 - 14.8 % 04/18 4:33 PM Wyle [facility] Not Available Not Available 10/23/2024 16:25:15 04/18/20 24 04/18/2024 CBC panel - Blood by Autom ated count platelets [#/volume] in blood by automated count 192 text: 150 - 420 x10e9/ L Plate let Count 192 150 - 420 x10E9 /L 04/18 4:33 PM CDT [facility] Not Available Not Available 10/23/2024 16:25:15 04/18/20 24 04/18/2024 CBC panel - Blood by Autom ated count platelet [entitic mean volume] in blood by automated count 10.7 fL low: 7.8fLh igh: 11.4fL MPV 10.7 7.8 - 11.4 fL 04/18 4:33 PM CDT [facility] Not Available Not Available 10/23/2024 16:25:15 04/18/2004/18/2024 CBC panel - Blood by Autom ated count interpretati on and review of laboratory results Abnorm al Not Available Not Available 16:25:15 04/18/20 24 04/18/2024 Urina lysis dipst ick panel - Urine by Autom ated test strip color of urine Yellow text: straw, yellow , dark yellow , light yellow Color UA POCT Yello w Straw , Yello w, Dark Yello w, Light Yello w 04/18 3:21 PM CDT [facility] Not Available Not Available 10/23/2024 16:25:15 04/18/20 24 04/18/2024 Urina lysis dipst ick panel - Urine by Autom ated test strip clarity of urine Clear text: clear Taylor ty UA POCT Clear Clear 04/18 3:21 PM T [facility] Not Available Not Available 10/23/2024 16:25:15 04/18/20 24 04/18/2024 Urina lysis dipst ick panel - Urine by Autom ated test strip urinalysis dipstick panel - urine by automated test strip 1.025 low: 1.005h igh: 1.03 Speci fic Gravi ty UA POCT 1.025 1.005 - 1.030 04/18 3:21 PM CDT [facility] Not Available Not Available 10/23/2024 16:25:15 04/18/20 24 04/18/2024 Urina lysis dipst ick panel - Urine by Autom ated test strip pH of urine by test strip 7 pH low: 5pHhig h: 8pH pH UA POCT 7.0 5.0 - 8.0 pH 04/18 3:21 PM CDT [facility] Not Available Not Available 10/23/2024 16:25:15 04/18/20 24 04/18/2024 Urina lysis dipst ick panel - Urine by Autom ated test strip protein [presence] in urine by test strip Trace text: negati ve abnormal Prote in UA POCT Trace (A) Negat mickey 04/18 3:21 PM CDT [facility] Not Available Not Available 10/23/2024 16:25:15 04/18/20 24 04/18/2024 Urina lysis dipst ick panel - Urine by Autom ated test strip hemoglobin [presence] in urine by test strip Negati ve text: negati ve Blood UA POCT Negat mickey Negat mickey 04/18 3:21 PM CDT [facility] Not Available Not Available 10/23/2024 16:25:15 04/18/20 24 04/18/2024 Urina lysis dipst ick panel - Urine by Autom ated test strip leukocyte esterase [presence] in urine by test strip 2+ text: negati ve abnormal Leuko cyte UA POCT 2+ (A) Negat mickey 04/18 3:21 PM CDT [facility] Not Available Not Available 10/23/2024 16:25:15 04/18/20 24 04/18/2024 Urina lysis dipst ick panel - Urine by Autom ated test strip nitrite [presence] in urine by test strip Negati ve text: negati ve Nitri te UA POCT Negat mickey Negat mickey 04/18 3:21 PM CDT [facility] Not Available Not Available 10/23/2024 16:25:15 04/18/20 24 04/18/2024 Urina lysis dipst ick panel - Urine by Autom ated test strip glucose [presence] in urine by test strip Negati ve text: negati ve Gluco se UA POCT Negat mickey Negat mickey 04/18 3:21 PM CDT [facility] Not Available Not Available 10/23/2024 16:25:15 04/18/20 24 04/18/2024 Urina lysis dipst ick panel - Urine by Autom ated test strip ketones [presence] in urine by test strip Negati ve text: negati ve Keton e UA POCT Negat mickey Negat mickey 04/18 3:21 PM CDT [facility] Not Available Not Available 10/23/2024 16:25:15 04/18/20 24 04/18/2024 Urina lysis dipst ick panel - Urine by Autom ated test strip bilirubin.to neda [presence] in urine by test strip Negati ve text: negati ve Bilir ubin UA POCT Negat mickey Negat mickey 04/18 3:21 PM CDT [facility] Not Available Not Available 10/23/2024 16:25:15 04/18/20 24 04/18/2024 Urina lysis dipst ick panel - Urine by Autom ated test strip urobilinogen [units/volum e] in urine by test strip 1 eu/dL low: 0.1eu/ dLhigh : 1eu/dL Urobi linog en UA POCT 1.0 0.1 - 1.0 EU/dL 04/18 3:21 PM CDT [facility] Not Available Not Available 10/23/2024 16:25:15 04/18/20 24 04/18/2024 Urina lysis dipst ick panel - Urine by Autom ated test strip interpretati on and review of laboratory results Abnorm al Not Available Not Available 16:25:15 05/02/20 24 05/02/2024 Urina lysis dipst ick panel - Urine by Autom ated test strip color of urine Yellow text: straw, yellow , dark yellow , light yellow Color UA POCT Yello w Straw , Yello w, Dark Yello w, Light Yello w 05/02 3:52 PM CDT [facility] Not Available Not Available 10/23/2024 16:32:41 05/02/20 24 05/02/2024 Urina lysis dipst ick panel - Urine by Autom ated test strip clarity of urine Clear text: clear Taylor ty UA POCT Clear Clear 05/02 3:52 PM CDT [facility] Not Available Not Available 10/23/2024 16:32:41 05/02/20 24 05/02/2024 Urina lysis dipst ick panel - Urine by Autom ated test strip urinalysis dipstick panel - urine by automated test strip 1.025 low: 1.005h igh: 1.03 Speci fic Gravi ty UA POCT 1.025 1.005 - 1.030 05/02 3:52 PM CDT [facility] Not Available Not Available 10/23/2024 16:32:41 05/02/20 24 05/02/2024 Urina lysis dipst ick panel - Urine by Autom ated test strip pH of urine by test strip 6.5 pH low: 5pHhig h: 8pH pH UA POCT 6.5 5.0 - 8.0 pH 05/02 3:52 PM CDT [facility] Not Available Not Available 10/23/2024 16:32:41 05/02/20 24 05/02/2024 Urina lysis dipst ick panel - Urine by Autom ated test strip protein [presence] in urine by test strip Negati ve text: negati ve Prote in UA POCT Negat mickey Negat mickey 05/02 3:52 PM CDT [facility] Not Available Not Available 10/23/2024 16:32:41 05/02/20 24 05/02/2024 Urina lysis dipst ick panel - Urine by Autom ated test strip hemoglobin [presence] in urine by test strip Negati ve text: negati ve Blood UA POCT Negat mickey Negat mickey 05/02 3:52 PM CDT [facility] Not Available Not Available 10/23/2024 16:32:41 05/02/20 24 05/02/2024 Urina lysis dipst ick panel - Urine by Autom ated test strip leukocyte esterase [presence] in urine by test strip 1+ text: negati ve abnormal Leuko cyte UA POCT 1+ (A) Negat mickey 10/22 /2024 3:52 PM CDT [facility] Not Available Not Available 10/23/2024 16:32:41 05/02/20 24 05/02/2024 Urina lysis dipst ick panel - Urine by Autom ated test strip nitrite [presence] in urine by test strip Negati ve text: negati ve Nitri te UA POCT Negat mickey Negat mickey 05/02 3:52 PM CDT [facility] Not Available Not Available 10/23/2024 16:32:41 05/02/20 24 05/02/2024 Urina lysis dipst ick panel - Urine by Autom ated test strip glucose [presence] in urine by test strip Negati ve text: negati ve Gluco se UA POCT Negat mickey Negat mickey 05/02 3:52 PM CDT [facility] Not Available Not Available 10/23/2024 16:32:41 05/02/20 24 05/02/2024 Urina lysis dipst ick panel - Urine by Autom ated test strip ketones [presence] in urine by test strip Trace text: negati ve abnormal Keton e UA POCT Trace (A) Negat mickey 05/02 3:52 PM CDT [facility] Not Available Not Available 10/23/2024 16:32:41 05/02/20 24 05/02/2024 Urina lysis dipst ick panel - Urine by Autom ated test strip bilirubin.to neda [presence] in urine by test strip Negati ve text: negati ve Bilir ubin UA POCT Negat mickey Negat mickey 05/02 3:52 PM CDT [facility] Not Available Not Available 10/23/2024 16:32:41 05/02/20 24 05/02/2024 Urina lysis dipst ick panel - Urine by Autom ated test strip urobilinogen [units/volum e] in urine by test strip 1 eu/dL low: 0.1eu/ dLhigh : 1eu/dL Urobi linog en UA POCT 1.0 0.1 - 1.0 EU/dL 05/02 3:52 PM CDT [facility] Not Available Not Available 10/23/2024 16:32:41 05/02/20 24 05/02/2024 Urina lysis dipst ick panel - Urine by Autom ated test strip interpretati on and review of laboratory results Abnorm al Not Available Not Available 16:32:41 05/16/20 24 05/16/2024 Urina lysis dipst ick panel - Urine by Autom ated test strip color of urine Yellow text: straw, yellow , dark yellow , light yellow Color UA POCT Yello w Straw , Yello w, Dark Yello w, Light Yello w 05/16 3:06 PM [employer] [facility] Not Available Not Available 10/23/2024 16:31:20 05/16/20 24 05/16/2024 Urina lysis dipst ick panel - Urine by Autom ated test strip clarity of urine Clear text: clear Taylor ty UA POCT Clear Clear 05/16 3:06 PM GENER[employer] TECHNICIAN [facility] Not Available Not Available 10/23/2024 16:31:20 05/16/20 24 05/16/2024 Urina lysis dipst ick panel - Urine by Autom ated test strip urinalysis dipstick panel - urine by automated test strip low: 1.005h igh: 1.03 Speci fic Gravi ty UA POCT >=1.0 30 1.005 - 1.030 05/16 3:06 PM [employer] TECHNICIAN [facility] Not Available Not Available 10/23/2024 16:31:20 05/16/20 24 05/16/2024 Urina lysis dipst ick panel - Urine by Autom ated test strip pH of urine by test strip 6 pH low: 5pHhig h: 8pH pH UA POCT 6.0 5.0 - 8.0 pH 05/16 3:06 PM [employer] TECHNICIAN [facility] Not Available Not Available 10/23/2024 16:31:20 05/16/20 24 05/16/2024 Urina lysis dipst ick panel - Urine by Autom ated test strip protein [presence] in urine by test strip Negati ve text: negati ve Prote in UA POCT Negat mickey Negat mickey 05/16 3:06 PM [employer] TECHNICIAN [facility] Not Available Not Available 10/23/2024 16:31:20 05/16/20 24 05/16/2024 Urina lysis dipst ick panel - Urine by Autom ated test strip hemoglobin [presence] in urine by test strip Negati ve text: negati ve Blood UA POCT Negat mickey Negat mickey 05/16 3:06 PM [employer] TECHNICIAN [facility] Not Available Not Available 10/23/2024 16:31:20 05/16/20 24 05/16/2024 Urina lysis dipst ick panel - Urine by Autom ated test strip leukocyte esterase [presence] in urine by test strip 1+ text: negati ve abnormal Leuko cyte UA POCT 1+ (A) Negat mickey 05/16 3:06 PM [employer] TECHNICIAN [facility] Not Available Not Available 10/23/2024 16:31:20 05/16/20 24 05/16/2024 Urina lysis dipst ick panel - Urine by Autom ated test strip nitrite [presence] in urine by test strip Negati ve text: negati ve Nitri te UA POCT Negat mickey Negat mickey 05/16 3:06 PM [employer] TECHNICIAN [facility] Not Available Not Available 10/23/2024 16:31:20 05/16/20 24 05/16/2024 Urina lysis dipst ick panel - Urine by Autom ated test strip glucose [presence] in urine by test strip Negati ve text: negati ve Gluco se UA POCT Negat mickey Negat mickey 05/16 3:06 PM GENER[employer] TECHNICIAN [facility] Not Available Not Available 10/23/2024 16:31:20 05/16/20 24 05/16/2024 Urina lysis dipst ick panel - Urine by Autom ated test strip ketones [presence] in urine by test strip Negati ve text: negati ve Keton e UA POCT Negat mickey Negat mickey 05/16 3:06 PM GENER[employer] TECHNICIAN [facility] Not Available Not Available 10/23/2024 16:31:20 05/16/20 24 05/16/2024 Urina lysis dipst ick panel - Urine by Autom ated test strip bilirubin.to neda [presence] in urine by test strip Negati ve text: negati ve Bilir ubin UA POCT Negat mickey Negat mickey 05/16 3:06 PM GENER[employer] TECHNICIAN [facility] Not Available Not Available 10/23/2024 16:31:20 05/16/20 24 05/16/2024 Urina lysis dipst ick panel - Urine by Autom ated test strip urobilinogen [units/volum e] in urine by test strip 1 eu/dL low: 0.1eu/ dLhigh : 1eu/dL Urobi linog en UA POCT 1.0 0.1 - 1.0 EU/dL 05/16 3:06 PM GENER[employer] TECHNICIAN [facility] Not Available Not Available 10/23/2024 16:31:20 05/16/20 24 05/16/2024 Urina lysis dipst ick panel - Urine by Autom ated test strip interpretati on and review of laboratory results Abnorm al Not Available Not Available 16:31:20 05/30/20 24 05/30/2024 Urina lysis dipst ick panel - Urine by Autom ated test strip color of urine Yellow text: straw, yellow , dark yellow , light yellow Color UA POCT Yello w Straw , Yello w, Dark Yello w, Light Yello w 05/30 4:23 PM GENERATION TECHNICIAN [facility] Not Available Not Available 10/23/2024 16:32:37 05/30/20 24 05/30/2024 Urina lysis dipst ick panel - Urine by Autom ated test strip clarity of urine Clear text: clear Taylor ty UA POCT Clear Clear 05/30 4:23 PM GENER[employer] TECHNICIAN [facility] Not Available Not Available 10/23/2024 16:32:37 05/30/20 24 05/30/2024 Urina lysis dipst ick panel - Urine by Autom ated test strip urinalysis dipstick panel - urine by automated test strip low: 1.005h igh: 1.03 Speci fic Gravi ty UA POCT >=1.0 30 1.005 - 1.030 05/30 4:23 PM GENER[employer] TECHNICIAN [facility] Not Available Not Available 10/23/2024 16:32:37 05/30/20 24 05/30/2024 Urina lysis dipst ick panel - Urine by Autom ated test strip pH of urine by test strip 6 pH low: 5pHhig h: 8pH pH UA POCT 6.0 5.0 - 8.0 pH 05/30 4:23 PM GENER[employer] TECHNICIAN [facility] Not Available Not Available 10/23/2024 16:32:37 05/30/20 24 05/30/2024 Urina lysis dipst ick panel - Urine by Autom ated test strip protein [presence] in urine by test strip Trace text: negati ve abnormal Prote in UA POCT Trace (A) Negat mickey 05/30 4:23 PM GENER[employer] TECHNICIAN [facility] Not Available Not Available 10/23/2024 16:32:37 05/30/20 24 05/30/2024 Urina lysis dipst ick panel - Urine by Autom ated test strip hemoglobin [presence] in urine by test strip Negati ve text: negati ve Blood UA POCT Negat mickey Negat mickey 05/30 4:23 PM GENER[employer] TECHNICIAN [facility] Not Available Not Available 10/23/2024 16:32:37 05/30/20 24 05/30/2024 Urina lysis dipst ick panel - Urine by Autom ated test strip leukocyte esterase [presence] in urine by test strip 2+ text: negati ve abnormal Leuko cyte UA POCT 2+ (A) Negat mickey 05/30 4:23 PM GENER[employer] TECHNICIAN [facility] Not Available Not Available 10/23/2024 16:32:37 05/30/20 24 05/30/2024 Urina lysis dipst ick panel - Urine by Autom ated test strip nitrite [presence] in urine by test strip Negati ve text: negati ve Nitri te UA POCT Negat mickey Negat mickey 05/30 4:23 PM GENER[employer] TECHNICIAN [facility] Not Available Not Available 10/23/2024 16:32:37 05/30/20 24 05/30/2024 Urina lysis dipst ick panel - Urine by Autom ated test strip glucose [presence] in urine by test strip Negati ve text: negati ve Gluco se UA POCT Negat mickey Negat mickey 05/30 4:23 PM GENER[employer] TECHNICIAN [facility] Not Available Not Available 10/23/2024 16:32:37 05/30/20 24 05/30/2024 Urina lysis dipst ick panel - Urine by Autom ated test strip ketones [presence] in urine by test strip Negati ve text: negati ve Keton e UA POCT Negat mickey Negat mickey 05/30 4:23 PM GENERATION TECHNICIAN [facility] Not Available Not Available 10/23/2024 16:32:37 05/30/20 24 05/30/2024 Urina lysis dipst ick panel - Urine by Autom ated test strip bilirubin.to neda [presence] in urine by test strip Negati ve text: negati ve Bilir ubin UA POCT Negat mickey Negat mickey 05/30 4:23 PM GENERATION TECHNICIAN [facility] Not Available Not Available 10/23/2024 16:32:37 05/30/20 24 05/30/2024 Urina lysis dipst ick panel - Urine by Autom ated test strip urobilinogen [units/volum e] in urine by test strip 0.2 eu/dL low: 0.1eu/ dLhigh : 1eu/dL Urobi linog en UA POCT 0.2 0.1 - 1.0 EU/dL 05/30 4:23 PM GENERATION TECHNICIAN [facility] Not Available Not Available 10/23/2024 16:32:37 05/30/20 24 05/30/2024 Urina lysis dipst ick panel - Urine by Autom ated test strip interpretati on and review of laboratory results Abnorm al Not Available Not Available 16:32:37 05/30/20 24 06/03/2024 Strep tococ cus agala ctiae [Pres ence] in Speci men by Organ ism speci fic cultu re microorganis m identified in specimen by culture Negati ve for beta-h emolyt ic Strept ococcu s Group B Cultu re Strep B Negat mickey for beta- hemol ytic Strep tococ cus Group B FISH 11/23 /2024 12:33 AM GENERATION TECHNICIAN [facility] Not Available Not Available 10/23/2024 16:32:36 05/30/20 24 06/03/2024 Strep tococ cus agala ctiae [Pres ence] in Speci men by Organ ism speci fic cultu re interpretati on and review of laboratory results Normal Not Available Not Available 10/10 16:32:36 06/06/20 24 06/06/2024 Urina lysis dipst ick panel - Urine by Autom ated test strip color of urine Light Yellow text: straw, yellow , dark yellow , light yellow Color UA POCT Light Yello w Straw , Yello w, Dark Yello w, Light Yello w 06/06 3:40 PM GENERATION TECHNICIAN [facility] Not Available Not Available 10/23/2024 16:29:25 06/06/20 24 06/06/2024 Urina lysis dipst ick panel - Urine by Autom ated test strip clarity of urine Slight ly Cloudy text: clear abnormal Taylor ty UA POCT Sligh tly [place] y (A) Clear 06/06 3:40 PM GENERATION TECHNICIAN [facility] Not Available Not Available 10/23/2024 16:29:25 06/06/20 24 06/06/2024 Urina lysis dipst ick panel - Urine by Autom ated test strip urinalysis dipstick panel - urine by automated test strip 1.02 low: 1.005h igh: 1.03 Speci fic Gravi ty UA POCT 1.020 1.005 - 1.030 06/06 3:40 PM GENERATION TECHNICIAN [facility] Not Available Not Available 10/23/2024 16:29:25 06/06/20 24 06/06/2024 Urina lysis dipst ick panel - Urine by Autom ated test strip pH of urine by test strip 6 pH low: 5pHhig h: 8pH pH UA POCT 6.0 5.0 - 8.0 pH 06/06 3:40 PM GENERATION TECHNICIAN [facility] Not Available Not Available 10/23/2024 16:29:25 06/06/20 24 06/06/2024 Urina lysis dipst ick panel - Urine by Autom ated test strip protein [presence] in urine by test strip Negati ve text: negati ve Prote in UA POCT Negat mickey Negat mickey 06/06 3:40 PM GENERATION TECHNICIAN [facility] Not Available Not Available 10/23/2024 16:29:25 06/06/20 24 06/06/2024 Urina lysis dipst ick panel - Urine by Autom ated test strip hemoglobin [presence] in urine by test strip Negati ve text: negati ve Blood UA POCT Negat mickey Negat mickey 06/06 3:40 PM GENERATION TECHNICIAN [facility] Not Available Not Available 10/23/2024 16:29:25 06/06/20 24 06/06/2024 Urina lysis dipst ick panel - Urine by Autom ated test strip leukocyte esterase [presence] in urine by test strip 2+ text: negati ve abnormal Leuko cyte UA POCT 2+ (A) Negat mickey 06/06 3:40 PM GENERATION TECHNICIAN [facility] Not Available Not Available 10/23/2024 16:29:25 06/06/20 24 06/06/2024 Urina lysis dipst ick panel - Urine by Autom ated test strip nitrite [presence] in urine by test strip Negati ve text: negati ve Nitri te UA POCT Negat mickey Negat mickey 06/06 3:40 PM GENERATION TECHNICIAN [facility] Not Available Not Available 10/23/2024 16:29:25 06/06/20 24 06/06/2024 Urina lysis dipst ick panel - Urine by Autom ated test strip glucose [presence] in urine by test strip Negati ve text: negati ve Gluco se UA POCT Negat mickey Negat mickey 06/06 3:40 PM GENERATION TECHNICIAN [facility] Not Available Not Available 10/23/2024 16:29:25 06/06/20 24 06/06/2024 Urina lysis dipst ick panel - Urine by Autom ated test strip ketones [presence] in urine by test strip Negati ve text: negati ve Keton e UA POCT Negat mickey Negat mickey 06/06 3:40 PM GENERATION TECHNICIAN [facility] Not Available Not Available 10/23/2024 16:29:25 06/06/20 24 06/06/2024 Urina lysis dipst ick panel - Urine by Autom ated test strip bilirubin.to neda [presence] in urine by test strip Negati ve text: negati ve Bilir ubin UA POCT Negat mickey Negat mickey 06/06 3:40 PM GENERATION TECHNICIAN [facility] Not Available Not Available 10/23/2024 16:29:25 06/06/20 24 06/06/2024 Urina lysis dipst ick panel - Urine by Autom ated test strip urobilinogen [units/volum e] in urine by test strip 1 eu/dL low: 0.1eu/ dLhigh : 1eu/dL Urobi linog en UA POCT 1.0 0.1 - 1.0 EU/dL 06/06 3:40 PM GENERATION TECHNICIAN [facility] Not Available Not Available 10/23/2024 16:29:25 06/06/20 24 06/06/2024 Urina lysis dipst ick panel - Urine by Autom ated test strip interpretati on and review of laboratory results Abnorm al Not Available Not Available 16:29:25 06/13/20 24 06/13/2024 Urina lysis dipst ick panel - Urine by Autom ated test strip color of urine Yellow text: straw, yellow , dark yellow , light yellow Color UA POCT Yello w Straw , Yello w, Dark Yello w, Light Yello w 06/13 3:57 PM GENERATION TECHNICIAN [facility] Not Available Not Available 10/23/2024 16:31:12 06/13/20 24 06/13/2024 Urina lysis dipst ick panel - Urine by Autom ated test strip clarity of urine Clear text: clear Taylor ty UA POCT Clear Clear 06/13 3:57 PM GENERATION TECHNICIAN [facility] Not Available Not Available 10/23/2024 16:31:12 06/13/20 24 06/13/2024 Urina lysis dipst ick panel - Urine by Autom ated test strip urinalysis dipstick panel - urine by automated test strip 1.015 low: 1.005h igh: 1.03 Speci fic Gravi ty UA POCT 1.015 1.005 - 1.030 06/13 3:57 PM GENERATION TECHNICIAN [facility] Not Available Not Available 10/23/2024 16:31:12 06/13/20 24 06/13/2024 Urina lysis dipst ick panel - Urine by Autom ated test strip pH of urine by test strip 6.5 pH low: 5pHhig h: 8pH pH UA POCT 6.5 5.0 - 8.0 pH 06/13 3:57 PM GENERATION TECHNICIAN [facility] Not Available Not Available 10/23/2024 16:31:12 06/13/20 24 06/13/2024 Urina lysis dipst ick panel - Urine by Autom ated test strip protein [presence] in urine by test strip Negati ve text: negati ve Prote in UA POCT Negat mickey Negat mickey 06/13 3:57 PM GENERATION TECHNICIAN [facility] Not Available Not Available 10/23/2024 16:31:12 06/13/20 24 06/13/2024 Urina lysis dipst ick panel - Urine by Autom ated test strip hemoglobin [presence] in urine by test strip Negati ve text: negati ve Blood UA POCT Negat mickey Negat mickey 06/13 3:57 PM GENERATION TECHNICIAN [facility] Not Available Not Available 10/23/2024 16:31:12 06/13/20 24 06/13/2024 Urina lysis dipst ick panel - Urine by Autom ated test strip leukocyte esterase [presence] in urine by test strip 1+ text: negati ve abnormal Leuko cyte UA POCT 1+ (A) Negat mickey 06/13 3:57 PM GENERATION TECHNICIAN [facility] Not Available Not Available 10/23/2024 16:31:12 06/13/20 24 06/13/2024 Urina lysis dipst ick panel - Urine by Autom ated test strip nitrite [presence] in urine by test strip Negati ve text: negati ve Nitri te UA POCT Negat mickey Negat mickey 06/13 3:57 PM GENERATION TECHNICIAN [facility] Not Available Not Available 10/23/2024 16:31:12 06/13/20 24 06/13/2024 Urina lysis dipst ick panel - Urine by Autom ated test strip glucose [presence] in urine by test strip Negati ve text: negati ve Gluco se UA POCT Negat mickey Negat mickey 06/13 3:57 PM GENERATION TECHNICIAN [facility] Not Available Not Available 10/23/2024 16:31:12 06/13/20 24 06/13/2024 Urina lysis dipst ick panel - Urine by Autom ated test strip ketones [presence] in urine by test strip Negati ve text: negati ve Keton e UA POCT Negat mickey Negat mickey 06/13 3:57 PM GENERATION TECHNICIAN [facility] Not Available Not Available 10/23/2024 16:31:12 06/13/20 24 06/13/2024 Urina lysis dipst ick panel - Urine by Autom ated test strip bilirubin.to neda [presence] in urine by test strip Negati ve text: negati ve Bilir ubin UA POCT Negat mickey Negat mickey 06/13 3:57 PM GENERATION TECHNICIAN [facility] Not Available Not Available 10/23/2024 16:31:12 06/13/20 24 06/13/2024 Urina lysis dipst ick panel - Urine by Autom ated test strip urobilinogen [units/volum e] in urine by test strip 1 eu/dL low: 0.1eu/ dLhigh : 1eu/dL Urobi linog en UA POCT 1.0 0.1 - 1.0 EU/dL 06/13 3:57 PM GENERATION TECHNICIAN [facility] Not Available Not Available 10/23/2024 16:31:12 06/13/20 24 06/13/2024 Urina lysis dipst ick panel - Urine by Autom ated test strip interpretati on and review of laboratory results Abnorm al Not Available Not Available 16:31:12 06/20/20 24 06/20/2024 Urina lysis dipst ick panel - Urine by Autom ated test strip color of urine Yellow text: straw, yellow , dark yellow , light yellow Color UA POCT Yello w Straw , Yello w, Dark Yello w, Light Yello w 06/20 1:52 PM GENERATION TECHNICIAN [facility] Not Available Not Available 10/23/2024 16:25:14 06/20/20 24 06/20/2024 Urina lysis dipst ick panel - Urine by Autom ated test strip clarity of urine Clear text: clear Taylor ty UA POCT Clear Clear 06/20 1:52 PM GENERATION TECHNICIAN [facility] Not Available Not Available 10/23/2024 16:25:14 06/20/20 24 06/20/2024 Urina lysis dipst ick panel - Urine by Autom ated test strip urinalysis dipstick panel - urine by automated test strip low: 1.005h igh: 1.03 Speci fic Gravi ty UA POCT >=1.0 30 1.005 - 1.030 06/20 1:52 PM GENERATION TECHNICIAN [facility] Not Available Not Available 10/23/2024 16:25:14 06/20/20 24 06/20/2024 Urina lysis dipst ick panel - Urine by Autom ated test strip pH of urine by test strip 6 pH low: 5pHhig h: 8pH pH UA POCT 6.0 5.0 - 8.0 pH 06/20 1:52 PM GENERATION TECHNICIAN [facility] Not Available Not Available 10/23/2024 16:25:14 06/20/20 24 06/20/2024 Urina lysis dipst ick panel - Urine by Autom ated test strip protein [presence] in urine by test strip 1+ text: negati ve abnormal Prote in UA POCT 1+ (A) Negat mickey 06/20 1:52 PM GENERATION TECHNICIAN [facility] Not Available Not Available 10/23/2024 16:25:14 06/20/20 24 06/20/2024 Urina lysis dipst ick panel - Urine by Autom ated test strip hemoglobin [presence] in urine by test strip Negati ve text: negati ve Blood UA POCT Negat mickey Negat mickey 06/20 1:52 PM GENERATION TECHNICIAN [facility] Not Available Not Available 10/23/2024 16:25:14 06/20/20 24 06/20/2024 Urina lysis dipst ick panel - Urine by Autom ated test strip leukocyte esterase [presence] in urine by test strip 1+ text: negati ve abnormal Leuko cyte UA POCT 1+ (A) Negat mickey 06/20 1:52 PM GENERATION TECHNICIAN [facility] Not Available Not Available 10/23/2024 16:25:14 06/20/20 24 06/20/2024 Urina lysis dipst ick panel - Urine by Autom ated test strip nitrite [presence] in urine by test strip Negati ve text: negati ve Nitri te UA POCT Negat mickey Negat mickey 06/20 1:52 PM GENERATION TECHNICIAN [facility] Not Available Not Available 10/23/2024 16:25:14 06/20/20 24 06/20/2024 Urina lysis dipst ick panel - Urine by Autom ated test strip glucose [presence] in urine by test strip Negati ve text: negati ve Gluco se UA POCT Negat mickey Negat mickey 06/20 1:52 PM GENERATION TECHNICIAN [facility] Not Available Not Available 10/23/2024 16:25:14 06/20/20 24 06/20/2024 Urina lysis dipst ick panel - Urine by Autom ated test strip ketones [presence] in urine by test strip Negati ve text: negati ve Keton e UA POCT Negat mickey Negat mickey 06/20 1:52 PM GENERATION TECHNICIAN [facility] Not Available Not Available 10/23/2024 16:25:14 06/20/20 24 06/20/2024 Urina lysis dipst ick panel - Urine by Autom ated test strip bilirubin.to neda [presence] in urine by test strip Negati ve text: negati ve Bilir ubin UA POCT Negat mickey Negat mickey 06/20 1:52 PM GENERATION TECHNICIAN [facility] Not Available Not Available 10/23/2024 16:25:14 06/20/20 24 06/20/2024 Urina lysis dipst ick panel - Urine by Autom ated test strip urobilinogen [units/volum e] in urine by test strip 1 eu/dL low: 0.1eu/ dLhigh : 1eu/dL Urobi linog en UA POCT 1.0 0.1 - 1.0 EU/dL 06/20 1:52 PM GENERATION TECHNICIAN [facility] Not Available Not Available 10/23/2024 16:25:14 06/20/20 24 06/20/2024 Urina lysis dipst ick panel - Urine by Autom ated test strip interpretati on and review of laboratory results Abnorm al Not Available Not Available 16:25:14 06/22/20 24 06/22/2024 ABO and Rh group [Type ] in Blood ABO and Rh group [type] in blood O POS ABO Rh O POS 06/22 11:32 AM GENERATION TECHNICIAN [facility] Not Available Not Available 10/23/2024 16:31:22 06/22/20 24 06/22/2024 trepo nema palli dum IgG + IgM Ab, QL, IA, serum treponema pallidum IgG + IgM Ab, ql, ia, serum Non Reacti ve text: non reacti ve No Labor atory evide nce of syphi lis infec tion. Note: Circu latin g antib odies may be low or undet ectab le in early infec tion. If recen t expos ure is suspe cted, re-dr leon hu in 2-4 weeks and repea t testi ng. Not Available Not Available 04/26/2025 15:25:08 06/22/20 24 06/22/2024 trepo nema palli dum IgG + IgM Ab, QL, IA, serum lab interpretati on Normal Not Available Not Available 04/11 15:25:08 06/22/20 24 06/22/2024 Compr ehens mickey metab olic 2000 panel - Serum or Plasm a glucose [mass/volume ] in serum or plasma 77 mg/dL low: 70mg/d Lhigh: 99mg/d L Gluco se 77 70 - 99 mg/dL 06/22 11:19 AM GENERATION TECHNICIAN [facility] Not Available Not Available 10/23/2024 16:31:22 06/22/20 24 06/22/2024 Compr ehens mickey metab olic 1999 panel - Serum or Plasm a sodium [moles/volum e] in serum or plasma 135 mmol/ L low: 136mmo l/Lhig h: 145mmo l/L low Sodiu m 135 (L) 136 - 145 mmol/ L 06/22 11:19 AM GENERATION TECHNICIAN [facility] Not Available Not Available 10/23/2024 16:31:22 06/22/20 24 06/22/2024 Compr ehens mickey metab olic 1999 panel - Serum or Plasm a potassium [moles/volum e] in serum or plasma 4 mmol/ L low: 3.5mmo l/Lhig h: 5.1mmo l/L Potas sium 4.0 3.5 - 5.1 mmol/ L 06/22 11:19 AM GENERATION TECHNICIAN [employer] [facility] Not Available Not Available 10/23/2024 16:31:22 06/22/20 24 06/22/2024 Compr ens mickey metab olic 1999 panel - Serum or Plasm a chloride [moles/volum e] in serum or plasma 109 mmol/ L low: 98mmol /Lhigh : 107mmo l/L high Chlor emmanuel 109 (H) 98 - 107 mmol/ L 06/22 11:19 AM GENERATION TECHNICIAN [facility] Not Available Not Available 10/23/2024 16:31:22 06/22/20 24 06/22/2024 Compr ens mickey metab olic 1999 panel - Serum or Plasm a carbon dioxide, total [moles/volum e] in serum or plasma 20 mmol/ L low: 22mmol /Lhigh : 29mmol /L low CO2 20 (L) 22 - 29 mmol/ L 06/22 11:19 AM GENERATION TECHNICIAN [employer] [facility] Not Available Not Available 10/23/2024 16:31:22 06/22/20 24 06/22/2024 Compr [employer] mickey metab olic 2000 panel - Serum or Plasm a calcium [mass/volume ] in serum or plasma 9.9 mg/dL low: 8.4mg/ dLhigh : 10.4mg /dL Calci um 9.9 8.4 - 10.4 mg/dL 06/22 11:19 AM GENERATION TECHNICIAN [facility] Not Available Not Available 10/23/2024 16:31:22 06/22/20 24 06/22/2024 Compr ehens mickey metab olic 1999 panel - Serum or Plasm a anion gap in blood by calculation 6 mmol/ L low: 6mmol/ Lhigh: 16mmol /L Anion Gap 6 6 - 16 mmol/ L 06/22 11:19 AM GENERATION TECHNICIAN [facility] Not Available Not Available 10/23/2024 16:31:22 06/22/20 24 06/22/2024 Compr ens mickey metab olic 1999 panel - Serum or Plasm a urea nitrogen [mass/volume ] in serum or plasma 8 mg/dL low: 5.3mg/ dLhigh : 18.7mg /dL BUN 8 5.3 - 18.7 mg/dL 06/22 11:19 AM [facility] Not Available Not Available 10/23/2024 16:31:22 06/22/20 24 06/22/2024 Compr ens mickey metab olic 1999 panel - Serum or Plasm a creatinine [mass/volume ] in serum or plasma 0.69 mg/dL low: 0.57mg /dLhig h: 1.11mg /dL Creat inine 0.69 0.57 - 1.11 mg/dL 06/22 11:19 AM [facility] Not Available Not Available 10/23/2024 16:31:22 06/22/20 24 06/22/2024 Compr [employer] mickey metab olic 1999 panel - Serum or Plasm a alkaline phosphatase [enzymatic activity/vol ume] in serum or plasma 196 U/L low: 40U/Lh igh: 150U/L high Alkal ine Phosp hatas e 196 (H) 40 - 150 U/L 06/22 11:19 AM [facility] Not Available Not Available 10/23/2024 16:31:22 06/22/20 24 06/22/2024 Compr ehens mickey metab olic 2000 panel - Serum or Plasm a alanine aminotransfe rase [enzymatic activity/vol ume] in serum or plasma 12 U/L low: 0U/Lhi gh: 55U/L ALT 12 0 - 55 U/L 06/22 11:19 AM GENERATION TECHNICIAN [facility] Not Available Not Available 10/23/2024 16:31:22 06/22/20 24 06/22/2024 Compr ehens mickey metab olic 2000 panel - Serum or Plasm a aspartate aminotransfe rase [enzymatic activity/vol ume] in serum or plasma 20 U/L low: 5U/Lhi gh: 34U/L AST 20 5 - 34 U/L 06/22 11:19 AM [employer] Not Available Not Available 10/23/2024 16:31:22 06/22/20 24 06/22/2024 Compr [employer] mickey metab olic 1999 panel - Serum or Plasm a protein [mass/volume ] in serum or plasma 7 text: 6.4 - 8.3 gm/dL Prote in Total 7.0 6.4 - 8.3 gm/dL 06/22 11:19 AM [employer] [facility] Not Available Not Available 10/23/2024 16:31:22 06/22/20 24 06/22/2024 Compr Lightbox[employer] mickey [employer] olic 2000 panel - Serum or Plasm a albumin [mass/volume ] in serum or plasma 3 text: 3.4 - 5.0 gm/dL low Album in 3.0 (L) 3.4 - 5.0 gm/dL 06/22 11:19 AM [employer] [facility] Not Available Not Available 10/23/2024 16:31:22 06/22/20 24 06/22/2024 Compr [employer] mickey metab olic 2000 panel - Serum or Plasm a bilirubin.to neda [mass/volume ] in serum or plasma 0.6 mg/dL low: 0.2mg/ dLhigh : 1.2mg/ dL Bilir ubin Total 0.6 0.2 - 1.2 mg/dL 06/22 11:19 AM [employer] [facility] Not Available Not Available 10/23/2024 16:31:22 06/22/20 24 06/22/2024 Compr [employer] mickey [employer] olic 2000 panel - Serum or Plasm a glomerular filtration rate [volume rate/area] in serum, plasma or blood by creatinine-b ased formula (CKD-epi 2020)/1.73 sq M text: >=90 mL/min /1.73 m2 eGFR by CKD-E PI >90 >=90 mL/mi n/1.7 3 m2 06/22 11:19 AM GENERATION TECHNICIAN [employer] [facility] Not Available Not Available 10/23/2024 16:31:22 06/22/20 24 06/22/2024 Compr ehens mickey metab olic 2000 panel - Serum or Plasm a interpretati on and review of laboratory results Abnorm al Not Available Not Available 16:31:22 06/22/20 24 06/22/2024 CBC W Auto Diffe renti al panel - Blood leukocytes [#/volume] in blood by automated count 6.9 text: 4.0 - 10.7 x10e9/ L WBC 6.9 4.0 - 10.7 x10E9 /L 06/22 11:06 AM GENERATION TECHNICIAN [employer] [facility] Not Available Not Available 10/23/2024 16:31:22 06/22/20 24 06/22/2024 CBC W Auto Diffe renti al panel - Blood erythrocytes [#/volume] in blood by automated count 3.89 text: 3.90 - 5.20 x10e12 /L low RBC Count 3.89 (L) 3.90 - 5.20 x10E1 2/L 06/22 11:06 AM GENERATION TECHNICIAN [employer] [facility] Not Available Not Available 10/23/2024 16:31:22 06/22/20 24 06/22/2024 CBC W Auto Diffe renti al panel - Blood hemoglobin [mass/volume ] in blood 11.6 g/dL low: 11.9g/ dLhigh : 15.8g/ dL low Hemog lobin 11.6 (L) 11.9 - 15.8 g/dL 06/22 11:06 AM GENERATION TECHNICIAN [employer] [facility] Not Available Not Available 10/23/2024 16:31:22 06/22/20 24 06/22/2024 CBC W Auto Diffe renti al panel - Blood hematocrit [volume fraction] of blood by automated count 34.9 % low: 34.8%h igh: 46.1% Hemat ocrit 34.9 34.8 - 46.1 % 06/22 11:06 AM GENERATION TECHNICIAN [employer] [facility] Not Available Not Available 10/23/2024 16:31:22 06/22/20 24 06/22/2024 CBC W Auto Diffe renti al panel - Blood MCV [entitic mean volume] in red blood cells by automated count 89.7 fL low: 80fLhi gh: 98fL MCV 89.7 80.0 - 98.0 fL 06/22 11:06 AM GENERATION TECHNICIAN [employer] [facility] Not Available Not Available 10/23/2024 16:31:22 06/22/20 24 06/22/2024 CBC W Auto Diffe edieti al panel - Blood MCH [entitic mass] by automated count 29.8 pg low: 26.7pg high: 33.6pg MCH 29.8 26.7 - 33.6 pg 06/22 11:06 AM [facility] Not Available Not Available 10/23/2024 16:31:22 06/22/20 24 06/22/2024 CBC W Auto Diffe vidal al panel - Blood MCHC [entitic mass/volume] in red blood cells by automated count 33.2 g/dL low: 31.7g/ dLhigh : 36.3g/ dL MCHC 33.2 31.7 - 36.3 g/dL 06/22 11:06 AM [facility] Not Available Not Available 10/23/2024 16:31:22 06/22/20 24 06/22/2024 CBC W Auto Diffe vidal al panel - Blood erythrocyte [distwidth] in red blood cells by automated count 14.7 % low: 11.3%h igh: 14.8% RDW-C V 14.7 11.3 - 14.8 % 06/22 11:06 AM [employer] Not Available Not Available 10/23/2024 16:31:22 06/22/20 24 06/22/2024 CBC W Auto Diffe renti al panel - Blood platelets [#/volume] in blood by automated count 218 text: 150 - 420 x10e9/ L Plate let Count 218 150 - 420 x10E9 /L 06/22 11:06 AM [employer] Not Available Not Available 10/23/2024 16:31:22 06/22/20 24 06/22/2024 CBC W Auto Diffe renti al panel - Blood platelet [entitic mean volume] in blood by automated count 11.3 fL low: 7.8fLh igh: 11.4fL MPV 11.3 7.8 - 11.4 fL 06/22 11:06 AM GENERATION TECHNICIAN [facility] Not Available Not Available 10/23/2024 16:31:22 06/22/20 24 06/22/2024 CBC W Auto Diffe renti al panel - Blood neutrophils/ leukocytes in blood by automated count 53.2 % low: 41%hig h: 74% Neutr ophil % 53.2 41.0 - 74.0 % 06/22 11:06 AM GENERATION TECHNICIAN [facility] Not Available Not Available 10/23/2024 16:31:22 06/22/20 24 06/22/2024 CBC W Auto Diffe renti al panel - Blood lymphocytes/ leukocytes in blood by automated count 32.1 % low: 17%hig h: 47% Lymph ocyte % 32.1 17.0 - 47.0 % 06/22 11:06 AM GENERATION TECHNICIAN [employer] [facility] Not Available Not Available 10/23/2024 16:31:22 06/22/20 24 06/22/2024 CBC W Auto Diffe renti al panel - Blood monocytes/le ukocytes in blood by automated count 12.8 % low: 3%high : 11% high Monoc yte % 12.8 (H) 3.0 - 11.0 % 06/22 11:06 AM GENERATION TECHNICIAN [employer] [facility] Not Available Not Available 10/23/2024 16:31:22 06/22/20 24 06/22/2024 CBC W Auto Diffe renti al panel - Blood eosinophils/ leukocytes in blood by automated count 0.9 % low: 0%high : 7% Eosin ophil % 0.9 0.0 - 7.0 % 06/22 11:06 AM GENERATION TECHNICIAN [facility] Not Available Not Available 10/23/2024 16:31:22 06/22/20 24 06/22/2024 CBC W Auto Diffe renti al panel - Blood basophils/le ukocytes in blood by automated count 0.4 % low: 0%high : 1.6% Basop hil % 0.4 0.0 - 1.6 % 06/22 11:06 AM GENERATION TECHNICIAN [facility] Not Available Not Available 10/23/2024 16:31:22 06/22/20 24 06/22/2024 CBC W Auto Diffe renti al panel - Blood immature granulocytes /leukocytes in blood by automated count 0.6 % low: 0%high : 1% Immat ure Granu locyt es % 0.6 0.0 - 1.0 % 06/22 11:06 AM GENERATION TECHNICIAN [employer] [facility] Not Available Not Available 10/23/2024 16:31:22 06/22/20 24 06/22/2024 CBC W Auto Diffe renti al panel - Blood neutrophils [#/volume] in blood by automated count 3.65 text: 1.60 - 7.50 x10e9/ L Neutr ophil Absol tatitlek 3.65 1.60 - 7.50 x10E9 /L 06/22 11:06 AM GENERATION TECHNICIAN [employer] [facility] Not Available Not Available 10/23/2024 16:31:22 06/22/20 24 06/22/2024 CBC W Auto Diffe renti al panel - Blood lymphocytes [#/volume] in blood by automated count 2.2 text: 1.00 - 4.40 x10e9/ L Lymph ocyte Absol [place] 2.20 1.00 - 4.40 x10E9 /L 06/22 11:06 AM GENERATION TECHNICIAN [facility] Not Available Not Available 10/23/2024 16:31:22 06/22/20 24 06/22/2024 CBC W Auto Diffe renti al panel - Blood monocytes [#/volume] in blood by automated count 0.88 text: 0.15 - 1.00 x10e9/ L Monoc yte Absol [place] 0.88 0.15 - 1.00 x10E9 /L 06/22 11:06 AM GENERATION TECHNICIAN [facility]OR [facility] Not Available Not Available 10/23/2024 16:31:22 06/22/20 24 06/22/2024 CBC W Auto Diffe renti al panel - Blood eosinophils [#/volume] in blood 0.06 text: 0.00 - 0.60 x10e9/ L Eosin ophil Absol tatitlek 0.06 0.00 - 0.60 x10E9 /L 06/22 11:06 AM GENERATION TECHNICIAN [facility] Not Available Not Available 10/23/2024 16:31:22 06/22/20 24 06/22/2024 CBC W Auto Diffe renti al panel - Blood basophils [#/volume] in blood by automated count 0.03 text: 0.00 - 0.13 x10e9/ L Basop hil Absol tatitlek 0.03 0.00 - 0.13 x10E9 /L 06/22 11:06 AM GENERATION TECHNICIAN [facility] Not Available Not Available 10/23/2024 16:31:22 06/22/20 24 06/22/2024 CBC W Auto Diffe renti al panel - Blood interpretati on and review of laboratory results Abnorm al Not Available Not Available 16:31:22 06/22/20 24 06/22/2024 Blood type and Indir ect antib rita scree n panel - Blood ABO and Rh group [type] in blood O POS ABO Rh O POS 06/22 11:05 AM [facility] Not Available Not Available 10/23/2024 16:31:22 06/22/20 24 06/22/2024 Blood type and Indir ect antib rita scree n panel - Blood blood group antibody screen [presence] in serum or plasma NEG Antib rita Scree n NEG 06/22 11:05 AM [facility] Not Available Not Available 10/23/2024 16:31:22 06/24/20 24 06/27/2024 Patho logy study pathology report.secti on heading Surgic al Pathol ogy Report Case: [id number] Author izing Provid er: Darian Leyva MD [facility] [place]: 2023 10:52 AM Orderi ng Locati on: [facility] 5 LDR Receiv ed: 2023 07:50 AM Pathol ogist: Marietta Navarro MD Specim en: Placen ta Case Repor t Surgi jovita Patho logy Repor t Case: [id number] Autho rizin g Provi ramiro: Lynette Duarte MD Colle cted: 06/24 10:52 AM Order ing Locat ion: [facility] 5 LDR Recei swapna: 06/26 07:50 AM Patho logis t: Deni Fink MD Speci men: Place nta 06/27 2:50 PM GENERATION TECHNICIAN [facility] Not Available Not Available 10/23/2024 16:31:23 06/24/20 24 06/27/2024 Patho logy study pathology report final diagnosis narrative Placen ta, vagina l delive ry: --Matu re (39 and 6/7 gestat ional week age) term placen ta with: A) Trivas cular umbili jovita cord with: 1. Umbili jovita vascul itis consis tent with the inflam matory respon se (stage I, grade 1) B) Placen neda membra santana negati ve for meconi um staini ng and acute chorio amnion itis C) Placen neda parenc hyma with: 1. Chorio nik vascul itis consis tent with the inflam matory respon se (stage II/gra de 2) 2. Interv illous subcho rionic thromb i compri sing less than 2 percen t of the disc 3. Negati ve for villit is and infarc ts 4. : placen neda ratio at the 15th% and placen neda weight at the 80th% of the GWA Final Diagn osis Place nta, vagin al deliv henok: --Mat ure (39 and 6/7 gesta tulio l week age) term place nta with: A) Triva scula r umbil ical cord with: 1. Umbil ical vascu litis consi stent with the infla mmato ry respo nse (stag e I, grade 1) B) Place ntal membr anes negat mickey for mecon ium stain ing and acute chori oamni oniti s C) Place ntal paren chyma with: 1. Chori onic vascu litis consi stent with the infla mmato ry respo nse (stag e II/gr romel 2) 2. Inter villo us subch garcia ic throm bi compr ising less than 2 perce nt of the disc 3. Negat mickey for villi tis and infar cts 4. 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 Clini jovita Histo ry 38-ye ar-ol d pregn ant woman at 39 and 6/7 GWA with a histo ry of coron linda arter y disea se, MVP, multi gravi da and chron ic hyper tensi on. 06/27 2:50 PM GENERATION TECHNICIAN [facility] Not Available Not Available 10/23/2024 16:31:23 06/24/20 24 06/27/2024 Patho logy study pathology report gross observation narrative The requis ition and specim en(s) are identi fied with the patien t's name Mason myron Toni . Receiv ed fresh and subseq uentia lly placed in formal in, specim en A, place nta is a 576 g (after membra santana and cord remove d), 22.1 x 16.9 x 2.8 cm single disc ovoid placen ta. The membra santana are pink-t an and semitr ansluc ent with a approx imatel y 50% circum vallat e and 50% margin al insert ion. The yellow -white umbili jovita cord is 30.1 cm length x 1.2 cm averag e diamet er with hyperc oiling . The umbili jovita cord is insert ed eccent ricall y, 3.5 cm to the placen neda disc and serial sectio brittany shows a trivas cular cut surfac e. The surfac e is blue-g ray with normal vascul ar arbori zation and modera te subcho rionic fibrin deposi tion compri sing of approx imatel y 25% of the surfac e. The matern al surfac e is lobula r, red-br own, and 100% comple te with no cotyle dons. Serial sectio brittany shows a spongy and red-br own parenc hyma with a 0.6 x 0.5 x 0.2 cm firm white indura tion, compri sing of less than 2% of the matern al disc. Repres entati ve sectio ns are submit [place] as follow s: A1- Membra ne roll and umbili jovita cord A2- Centra l parenc hyma, partia l thickn ess A3- Periph eral parenc hyma with subcho rionic fibrin , full thickn ess A4- Indura tion./ BAJ Gross Descr iptio n The requi sitio n and speci men(s ) are ident ified with the patie nt's name Renata carlin Muñoz . Recei swapna fresh and subse quent ially place d in forma juana, speci men A, plac enta is a 576 g (afte r membr anes and cord remov ed), 22.1 x 16.9 x 2.8 cm singl e disc ovoid place nta. The membr anes are pink- anaya and semit ransl ucent with a appro ximat mike 50% circu mvall ate and 50% jake nal inser tion. The yello w-whi te umbil ical cord is 30.1 cm lengt h x 1.[address] with hyper coili ng. The umbil ical cord is inser [place] eccen trica lly, 3.[address] ntal disc and seria l secti oning shows a triva scula r cut surfa ce. The surfa ce is blue- swenson with disha l vascu lar arbor izati on and moder ate subch garcia ic fibri n depos ition compr ising of appro ximat mike 25% of the surfa ce. The mater nal surfa ce is lobul ar, red-b rown, and 100% compl ete with no cotyl edons . Seria l secti oning shows a spong y and red-b rown paren chyma with a 0.6 x 0.5 x 0.2 cm firm white indur ation , compr ising of less than 2% of the mater nal disc. Repre senta tive secti ons are submi tted as follo ws: A1- Membr ane roll and umbil ical cord A2- Centr al paren chyma , parti al thick ness A3- Perip heral paren chyma with subch garcia ic fibri n, full thick ness A4- Indur ation ./BAJ 06/27 2:50 PM GENERATION TECHNICIAN [facility] Not Available Not Available 10/23/2024 16:31:23 06/24/20 24 06/27/2024 Patho logy study pathology report microscopic observation narrative other stain Review confir ms the final diagno sis. Micro scopi c Descr iptio n Revie w confi angy the final diagn osis. 06/27 2:50 PM GENERATION TECHNICIAN [facility] Not Available Not Available 10/23/2024 16:31:23 06/24/20 24 06/27/2024 Patho logy study pathologist location at [facility] Patho logis t Locat ion at [facility] 06/27 2:50 PM GENERATION TECHNICIAN [facility] Not Available Not Available 10/23/2024 16:31:23 06/24/20 24 06/27/2024 Patho logy study service comment All histoc hemica l and/or immuno histoc hemica l result s are interp reted with contro ls that demons trate approp riate staini ng reacti ons before report ing result s. Note on use of immuno cytoch emistr y reagen ts: This test was develo ped and its perfor paty humairaac nehemiasist ic determ ined by [facility] ment [facility] Labor[facility] tory Medici ne. It has not been cleare d or approv ed by the U.S. Food and Drug Admini strati on (FDA). The FDA has determ ined that such cleara nce or approv al is not necess linda. The test is used for clinic al purpos e. It should not be regard ed as invest igatio nal or for resear ch. This labora tory is certif ied to perfor m high comple xity testin g. The perfor paty armenta terisrael ics of the IHC/IS H assays have been valida [place] on formal in-fix ed paraff in embedd ed tissue s only. The assays have not been valida [place] on decalc ified tissue s. Result s should be interp reted with cautio n. Discl aimer All histo chemi jovita and/o r immun ohist ochem ical resul ts are inter prete d with contr ols that demon strat e appro priat e stain ing react ions befor e repor ting resul ts. Note on use of immun ocyto chemi stry reage nts: This test was devel oped and its perfo rmanc e ac cteri stic deter mined by [facility] at[facility] ine. It has not been clear ed or appro swapna by the U.S. Food and Drug Admin istra tion (FDA) . The FDA has deter mined that such clear ance or appro joyce is not neces leno. The test is used for clini jovita purpo se. It shoul d not be regar ded as inves tigat ional or for resea rch. This labor atory is certi fied to perfo rm high compl exity testi ng. The perfo rmanc e ac cteri stics of the IHC/I SH assay s have been valid ated on forma juana-f ixed paraf fin embed ded tissu es only. The assay s have not been valid ated on decal cifie d tissu es. Resul ts shoul d be inter prete d with cauti on. 06/27 2:50 PM GENERATION TECHNICIAN [facility] Not Available Not Available 10/23/2024 16:31:23 06/24/20 24 06/27/2024 Patho logy study embedded images Embed ded Image s 06/27 2:50 PM GENERATION TECHNICIAN [facility] Not Available Not Available 10/23/2024 16:31:23 06/24/20 24 06/24/2024 Gas panel - Venou s cord blood pH of venous cord blood 7.35 pH low: 7.28pH high: 7.4pH pH Cord Venou s POCT 7.35 7.28 - 7.40 pH 06/24 10:04 AM GENERATION TECHNICIAN [facility] Not Available Not Available 10/23/2024 16:31:23 06/24/20 24 06/24/2024 Gas panel - Venou s cord blood carbon dioxide [partial pressure] in venous cord blood 33.7 text: 35 - 45 mm hg low pCO2 Cord Venou s POCT 33.7 (L) 35 - 45 mm hg 06/24 10:04 AM GENERATION TECHNICIAN [facility] Not Available Not Available 10/23/2024 16:31:23 06/24/20 24 06/24/2024 Gas panel - Venou s cord blood oxygen [partial pressure] in venous cord blood 25 text: 22 - 33 mm hg pO2 Cord Venou s POCT 25 22 - 33 mm hg 06/24 10:04 AM GENERATION TECHNICIAN [facility] Not Available Not Available 10/23/2024 16:31:23 06/24/20 24 06/24/2024 Gas panel - Venou s cord blood bicarbonate [moles/volum e] in venous cord blood 18.7 mmol/ L low: 22mmol /Lhigh : 24mmol /L low HCO3 Cord Arter ial POCT 18.7 (L) 22 - 24 mmol/ L 06/24 10:04 AM GENERATION TECHNICIAN [facility] Not Available Not Available 10/23/2024 16:31:23 06/24/20 24 06/24/2024 Gas panel - Venou s cord blood base excess in venous cord blood by calculation -6 mmol/ L low: -6.4mm ol/Lhi gh: 1.6mmo l/L BE Cord Venou s POCT Calc -6 -6.4 - 1.6 mmol/ L 06/24 10:04 AM GENERATION TECHNICIAN [facility] Not Available Not Available 10/23/2024 16:31:23 06/24/20 24 06/24/2024 Gas panel - Venou s cord blood carbon dioxide, total [moles/volum e] in venous cord blood 20 mmol/ L low: 22mmol /Lhigh : 30mmol /L low TCO2 Cord Venou s POCT 20 (L) 22 - 30 mmol/ L 06/24 10:04 AM GENERATION TECHNICIAN [facility] Not Available Not Available 10/23/2024 16:31:23 06/24/20 24 06/24/2024 Gas panel - Venou s cord blood oxygen saturation in arterial cord blood 44 % O2 Satur ation % Cord Venou s Calc POCT 44 % 06/24 10:04 AM GENERATION TECHNICIAN [facility] Not Available Not Available 10/23/2024 16:31:23 06/24/20 24 06/24/2024 Gas panel - Venou s cord blood specimen source identified CORD DM Site CORD DM 06/24 10:04 AM GENERATION TECHNICIAN [facility] Not Available Not Available 10/23/2024 16:31:23 06/24/20 24 06/24/2024 Gas panel - Venou s cord blood specimen source identified CORD DM Sampl e iSTAT CORD DM 06/24 10:04 AM GENERATION TECHNICIAN [facility] Not Available Not Available 10/23/2024 16:31:23 06/24/20 24 06/24/2024 Gas panel - Venou s cord blood interpretati on and review of laboratory results Abnorm al Not Available Not Available 16:31:23 06/24/20 24 06/24/2024 Gas panel - Arter ial cord blood pH of arterial cord blood 7.24 pH low: 7.2pHh igh: 7.34pH pH Cord Arter ial POCT 7.24 7.20 - 7.34 pH 06/24 10:04 AM GENERATION TECHNICIAN [facility] Not Available Not Available 10/23/2024 16:31:23 06/24/20 24 06/24/2024 Gas panel - Arter ial cord blood carbon dioxide [partial pressure] in arterial cord blood 50.8 text: 45 - 55 mm hg pCO2 Cord Arter ial POCT 50.8 45 - 55 mm hg 06/24 10:04 AM GENERATION TECHNICIAN [facility] Not Available Not Available 10/23/2024 16:31:23 06/24/20 24 06/24/2024 Gas panel - Arter ial cord blood oxygen [partial pressure] in arterial cord blood 15 text: 12 - 25 mm hg pO2 Cord Arter ial POCT 15 12 - 25 mm hg 06/24 10:04 AM GENERATION TECHNICIAN [facility] Not Available Not Available 10/23/2024 16:31:23 06/24/20 24 06/24/2024 Gas panel - Arter ial cord blood bicarbonate [moles/volum e] in arterial cord blood 21.7 mmol/ L low: 22mmol /Lhigh : 24mmol /L low HCO3 Cord Arter ial POCT 21.7 (L) 22 - 24 mmol/ L 06/24 10:04 AM GENERATION TECHNICIAN [facility] Not Available Not Available 10/23/2024 16:31:23 06/24/20 24 06/24/2024 Gas panel - Arter ial cord blood base excess in arterial cord blood by calculation -6 mmol/ L low: -2.9mm ol/Lhi gh: 8.3mmo l/L low BE Cord Arter ial POCT -6 (L) -2.9 - 8.3 mmol/ L 06/24 10:04 AM GENERATION TECHNICIAN [facility] Not Available Not Available 10/23/2024 16:31:23 06/24/20 24 06/24/2024 Gas panel - Arter ial cord blood carbon dioxide, total [moles/volum e] in arterial cord blood 23 mmol/ L TCO2 Cord Arter ial POCT 23 mmol/ L 06/24 10:04 AM GENERATION TECHNICIAN [facility] Not Available Not Available 10/23/2024 16:31:23 06/24/20 24 06/24/2024 Gas panel - Arter ial cord blood oxygen saturation in arterial cord blood 14 % O2 Satur ation Cord Art % Calc POCT 14 % 06/24 10:04 AM GENERATION TECHNICIAN [facility] Not Available Not Available 10/23/2024 16:31:23 06/24/20 24 06/24/2024 Gas panel - Arter ial cord blood specimen source identified CORD ART Site CORD ART 06/24 10:04 AM GENERATION TECHNICIAN [facility] Not Available Not Available 10/23/2024 16:31:23 06/24/20 24 06/24/2024 Gas panel - Arter ial cord blood specimen source identified CORD ART Sampl e iSTAT CORD ART 06/24 10:04 AM GENERATION TECHNICIAN [facility] Not Available Not Available 10/23/2024 16:31:23 06/24/20 24 06/24/2024 Gas panel - Arter ial cord blood interpretati on and review of laboratory results Abnorm al Not Available Not Available 16:31:23 06/25/20 24 06/25/2024 CBC W Auto Diffe renti al panel - Blood leukocytes [#/volume] in blood by automated count 20.6 text: 4.0 - 10.7 x10e9/ L high WBC 20.6 (H) 4.0 - 10.7 x10E9 /L 06/25 6:21 AM GENERATION TECHNICIAN [facility] Not Available Not Available 10/23/2024 16:31:23 06/25/20 24 06/25/2024 CBC W Auto Diffe renti al panel - Blood erythrocytes [#/volume] in blood by automated count 3.54 text: 3.90 - 5.20 x10e12 /L low RBC Count 3.54 (L) 3.90 - 5.20 x10E1 2/L 06/25 6:21 AM GENERATION TECHNICIAN [facility] Not Available Not Available 10/23/2024 16:31:23 06/25/20 24 06/25/2024 CBC W Auto Diffe renti al panel - Blood hemoglobin [mass/volume ] in blood 10.4 g/dL low: 11.9g/ dLhigh : 15.8g/ dL low Hemog lobin 10.4 (L) 11.9 - 15.8 g/dL 06/25 6:21 AM GENERATION TECHNICIAN [facility] Not Available Not Available 10/23/2024 16:31:23 06/25/20 24 06/25/2024 CBC W Auto Diffe renti al panel - Blood hematocrit [volume fraction] of blood by automated count 31.7 % low: 34.8%h igh: 46.1% low Hemat ocrit 31.7 (L) 34.8 - 46.1 % 06/25 6:21 AM GENERATION TECHNICIAN [facility] Not Available Not Available 10/23/2024 16:31:23 06/25/20 24 06/25/2024 CBC W Auto Diffe renti al panel - Blood MCV [entitic mean volume] in red blood cells by automated count 89.5 fL low: 80fLhi gh: 98fL MCV 89.5 80.0 - 98.0 fL 06/25 6:21 AM GENERATION TECHNICIAN [facility] Not Available Not Available 10/23/2024 16:31:23 06/25/20 24 06/25/2024 CBC W Auto Diffe renti al panel - Blood MCH [entitic mass] by automated count 29.4 pg low: 26.7pg high: 33.6pg MCH 29.4 26.7 - 33.6 pg 06/25 6:21 AM GENERATION TECHNICIAN [facility] Not Available Not Available 10/23/2024 16:31:23 06/25/20 24 06/25/2024 CBC W Auto Diffe vidal al panel - Blood MCHC [entitic mass/volume] in red blood cells by automated count 32.8 g/dL low: 31.7g/ dLhigh : 36.3g/ dL MCHC 32.8 31.7 - 36.3 g/dL 06/25 6:21 AM [facility] Not Available Not Available 10/23/2024 16:31:23 06/25/20 24 06/25/2024 CBC W Auto Diffe vidal al panel - Blood erythrocyte [distwidth] in red blood cells by automated count 14.6 % low: 11.3%h igh: 14.8% RDW-C V 14.6 11.3 - 14.8 % 06/25 6:21 AM GENERATION TECHNICIAN [facility] Not Available Not Available 10/23/2024 16:31:23 06/25/20 24 06/25/2024 CBC W Auto Diffe renti al panel - Blood platelets [#/volume] in blood by automated count 195 text: 150 - 420 x10e9/ L Plate let Count 195 150 - 420 x10E9 /L 06/25 6:21 AM GENERATION TECHNICIAN [facility] Not Available Not Available 10/23/2024 16:31:23 06/25/20 24 06/25/2024 CBC W Auto Diffe rensascha al panel - Blood platelet [entitic mean volume] in blood by automated count 10.9 fL low: 7.8fLh igh: 11.4fL MPV 10.9 7.8 - 11.4 fL 06/25 6:21 AM GENERATION TECHNICIAN [facility] Not Available Not Available 10/23/2024 16:31:23 06/25/20 24 06/25/2024 CBC W Auto Diffe renti al panel - Blood interpretati on and review of laboratory results Abnorm al Not Available Not Available 16:31:23 06/26/20 24 06/26/2024 CBC W Auto Diffe renti al panel - Blood leukocytes [#/volume] in blood by automated count 11.7 text: 4.0 - 10.7 x10e9/ L high WBC 11.7 (H) 4.0 - 10.7 x10E9 /L 06/26 3:29 AM GENERATION TECHNICIAN [facility] Not Available Not Available 10/23/2024 16:31:23 06/26/20 24 06/26/2024 CBC W Auto Diffe renti al panel - Blood erythrocytes [#/volume] in blood by automated count 3.2 text: 3.90 - 5.20 x10e12 /L low RBC Count 3.20 (L) 3.90 - 5.20 x10E1 2/L 06/26 3:29 AM GENERATION TECHNICIAN [facility] Not Available Not Available 10/23/2024 16:31:23 06/26/20 24 06/26/2024 CBC W Auto Diffe rensascha al panel - Blood hemoglobin [mass/volume ] in blood 9.5 g/dL low: 11.9g/ dLhigh : 15.8g/ dL low Hemog lobin 9.5 (L) 11.9 - 15.8 g/dL 06/26 3:29 AM GENERATION TECHNICIAN [facility] Not Available Not Available 10/23/2024 16:31:23 06/26/20 24 06/26/2024 CBC W Auto Diffe renti al panel - Blood hematocrit [volume fraction] of blood by automated count 28.6 % low: 34.8%h igh: 46.1% low Hemat ocrit 28.6 (L) 34.8 - 46.1 % 06/26 3:29 AM GENERATION TECHNICIAN [facility] Not Available Not Available 10/23/2024 16:31:23 06/26/20 24 06/26/2024 CBC W Auto Diffe renti al panel - Blood MCV [entitic mean volume] in red blood cells by automated count 89.4 fL low: 80fLhi gh: 98fL MCV 89.4 80.0 - 98.0 fL 06/26 3:29 AM GENERATION TECHNICIAN [facility] Not Available Not Available 10/23/2024 16:31:23 06/26/20 24 06/26/2024 CBC W Auto Diffe renti al panel - Blood MCH [entitic mass] by automated count 29.7 pg low: 26.7pg high: 33.6pg MCH 29.7 26.7 - 33.6 pg 06/26 3:29 AM GENERATION TECHNICIAN [facility] Not Available Not Available 10/23/2024 16:31:23 06/26/20 24 06/26/2024 CBC W Auto Diffe renti al panel - Blood MCHC [entitic mass/volume] in red blood cells by automated count 33.2 g/dL low: 31.7g/ dLhigh : 36.3g/ dL MCHC 33.2 31.7 - 36.3 g/dL 06/26 3:29 AM GENERATION TECHNICIAN [facility] Not Available Not Available 10/23/2024 16:31:23 06/26/20 24 06/26/2024 CBC W Auto Diffe renti al panel - Blood erythrocyte [distwidth] in red blood cells by automated count 14.4 % low: 11.3%h igh: 14.8% RDW-C V 14.4 11.3 - 14.8 % 06/26 3:29 AM GENERATION TECHNICIAN [facility] Not Available Not Available 10/23/2024 16:31:23 06/26/20 24 06/26/2024 CBC W Auto Diffe renti al panel - Blood platelets [#/volume] in blood by automated count 201 text: 150 - 420 x10e9/ L Plate let Count 201 150 - 420 x10E9 /L 06/26 3:29 AM GENERATION TECHNICIAN [facility] Not Available Not Available 10/23/2024 16:31:23 06/26/20 24 06/26/2024 CBC W Auto Diffe renti al panel - Blood platelet [entitic mean volume] in blood by automated count 10.2 fL low: 7.8fLh igh: 11.4fL MPV 10.2 7.8 - 11.4 fL 06/26 3:29 AM GENERATION TECHNICIAN [facility] Not Available Not Available 10/23/2024 16:31:23 06/26/20 24 06/26/2024 CBC W Auto Diffe renti al panel - Blood neutrophils/ leukocytes in blood by automated count 66.6 % low: 41%hig h: 74% Neutr ophil % 66.6 41.0 - 74.0 % 06/26 3:29 AM GENERATION TECHNICIAN [facility] Not Available Not Available 10/23/2024 16:31:23 06/26/20 24 06/26/2024 CBC W Auto Diffe renti al panel - Blood lymphocytes/ leukocytes in blood by automated count 20.7 % low: 17%hig h: 47% Lymph ocyte % 20.7 17.0 - 47.0 % 06/26 3:29 AM GENERATION TECHNICIAN [facility] Not Available Not Available 10/23/2024 16:31:23 06/26/20 24 06/26/2024 CBC W Auto Diffe renti al panel - Blood monocytes/le ukocytes in blood by automated count 9.9 % low: 3%high : 11% Monoc yte % 9.9 3.0 - 11.0 % 06/26 3:29 AM GENERATION TECHNICIAN [facility] Not Available Not Available 10/23/2024 16:31:23 06/26/20 24 06/26/2024 CBC W Auto Diffe renti al panel - Blood eosinophils/ leukocytes in blood by automated count 1.9 % low: 0%high : 7% Eosin ophil % 1.9 0.0 - 7.0 % 06/26 3:29 AM GENERATION TECHNICIAN [facility] Not Available Not Available 10/23/2024 16:31:23 06/26/20 24 06/26/2024 CBC W Auto Diffe renti al panel - Blood basophils/le ukocytes in blood by automated count 0.3 % low: 0%high : 1.6% Basop hil % 0.3 0.0 - 1.6 % 06/26 3:29 AM GENERATION TECHNICIAN [facility] Not Available Not Available 10/23/2024 16:31:23 06/26/20 24 06/26/2024 CBC W Auto Diffe renti al panel - Blood immature granulocytes /leukocytes in blood by automated count 0.6 % low: 0%high : 1% Immat ure Granu locyt es % 0.6 0.0 - 1.0 % 06/26 3:29 AM GENERATION TECHNICIAN [facility] Not Available Not Available 10/23/2024 16:31:23 06/26/20 24 06/26/2024 CBC W Auto Diffe renti al panel - Blood neutrophils [#/volume] in blood by automated count 7.8 text: 1.60 - 7.50 x10e9/ L high Neutr ophil Absol tatitlek 7.80 (H) 1.60 - 7.50 x10E9 /L 06/26 3:29 AM GENERATION TECHNICIAN [facility] Not Available Not Available 10/23/2024 16:31:23 06/26/20 24 06/26/2024 CBC W Auto Diffe renti al panel - Blood lymphocytes [#/volume] in blood by automated count 2.43 text: 1.00 - 4.40 x10e9/ L Lymph ocyte Absol tatitlek 2.43 1.00 - 4.40 x10E9 /L 06/26 3:29 AM GENERATION TECHNICIAN [facility] Not Available Not Available 10/23/2024 16:31:23 06/26/20 24 06/26/2024 CBC W Auto Diffe renti al panel - Blood monocytes [#/volume] in blood by automated count 1.16 text: 0.15 - 1.00 x10e9/ L high Monoc yte Absol tatitlek 1.16 (H) 0.15 - 1.00 x10E9 /L 06/26 3:29 AM GENERATION TECHNICIAN [facility] LABOR AT[facility] Not Available Not Available 10/23/2024 16:31:23 06/26/20 24 06/26/2024 CBC W Auto Diffe renti al panel - Blood eosinophils [#/volume] in blood 0.22 text: 0.00 - 0.60 x10e9/ L Eosin ophil Absol [place] 0.22 0.00 - 0.60 x10E9 /L 06/26 3:29 AM GENERATION TECHNICIAN [facility]OR AT[facility] Not Available Not Available 10/23/2024 16:31:23 06/26/20 24 06/26/2024 CBC W Auto Diffe renti al panel - Blood basophils [#/volume] in blood by automated count 0.04 text: 0.00 - 0.13 x10e9/ L Basop hil Absol tatitlek 0.04 0.00 - 0.13 x10E9 /L 06/26 3:29 AM GENERATION TECHNICIAN [facility] Not Available Not Available 10/23/2024 16:31:23 06/26/20 24 06/26/2024 CBC W Auto Diffe renti al panel - Blood interpretati on and review of laboratory results Abnorm al Not Available Not Available 16:31:23 10/25/19 25 10/24/2024 THYRO ID STIMU LATIN G HORMO NE thyroid stimulating hormone 0.753 uIU/m L 0.450- 4.500 normal Not Available [facility] (Lab) [address] [place], [address], 10/24/2024 21:22:50 10/25/19 25 10/24/2024 LIPID PANEL triglyceride s 51 mg/dL 0-149 normal Not Available [facility] (Lab) [address] [facility], [place], [address], 10/24/2024 21:27:31 10/25/19 25 10/24/2024 LIPID PANEL cholesterol 177 mg/dL 100-19 9 normal Not Available [facility] (Lab) [address] [place], [address], 10/24/2024 21:27:31 10/25/19 25 10/24/2024 LIPID PANEL LDL cholesterol 91 mg/dL 0-99 normal Not Available [facility] ([facility]) [address] [facility] [place], [address], 10/24/2024 21:27:31 10/25/19 25 10/24/2024 LIPID PANEL VLDL cholesterol (calc) 10 mg/dL 5-40 normal Not Available [facility] (Lab) [address], [place], [address], 10/24/2024 21:27:31 10/25/19 25 10/24/2024 LIPID PANEL HDL cholesterol 77 mg/dL 40-999 normal Not Available [facility] (Lab) [address] [facility], [place], [address], 10/24/2024 21:27:31 10/25/19 25 10/24/2024 LIPID PANEL LDL HDL ratio 1.2 0-3.2 normal Not Available [facility] (Lab) [address], [place], [address], 10/24/2024 21:27:31 10/25/19 25 10/24/2024 LIPID PANEL chol HDL ratio 2.0 mg/dL 0-4.4 normal Not Available [facility] (Lab) [address], [place], [address], 10/24/2024 21:27:31 10/25/19 25 10/24/2024 LIPID PANEL hemolysis 2 0-19 Not Available [facility] ([facility]) [address] [facility], [place], [address], 10/24/2024 21:27:31 10/25/19 25 10/24/2024 LIPID PANEL icterus 1 0.5-4. 9 Not Available [facility] (Lab) [address] [facility], [place], [address], 10/24/2024 21:27:31 10/25/19 25 10/24/2024 LIPID PANEL lipemia 10 0-99 Not Available [facility] (Lab) [address] [place], [address], 10/24/2024 21:27:31 10/25/19 25 10/26/2024 COMP. METAB OLIC PANEL (14) glucose 81 mg/dL 70-99 Not Available [facility] (Lab) [address] [place], [address], 10/26/2024 08:14:11 10/25/19 25 10/26/2024 COMP. METAB OLIC PANEL (14) BUN 12 mg/dL 6-20 Not Available [facility] (Lab) [address] [place], [address], 10/26/2024 08:14:11 10/25/19 25 10/26/2024 COMP. METAB OLIC PANEL (14) creatinine 0.81 mg/dL 0.57-1 .00 Not Available [facility] (Lab) [address] [place], [address], 10/26/2024 08:14:11 10/25/19 25 10/26/2024 COMP. METAB OLIC PANEL (14) BUN/creatini ne ratio 15 9-23 Not Available [facility] (Lab) [address] [place], [address], 10/26/2024 08:14:11 10/25/19 25 10/26/2024 COMP. METAB OLIC PANEL (14) sodium 139 mmol/ L 134-14 4 Not Available [facility] (Lab) [address] [place], [address], 10/26/2024 08:14:11 10/25/19 25 10/26/2024 COMP. METAB OLIC PANEL (14) potassium 4.3 mmol/ L 3.5-5. 2 Not Available [facility] (Lab) [address] [place], [address], 10/26/2024 08:14:11 10/25/19 25 10/26/2024 COMP. METAB OLIC PANEL (14) chloride 103 mmol/ L 96-106 Not Available [facility] (Lab) [address] [place], [address], 10/26/2024 08:14:11 10/25/19 25 10/26/2024 COMP. METAB OLIC PANEL (14) carbon dioxide, total 21 mmol/ L 20-29 Not Available [facility] (Lab) [address] [facility], [place], [address], 10/26/2024 08:14:11 10/25/19 25 10/26/2024 COMP. METAB OLIC PANEL (14) calcium 10.0 mg/dL 8.7-10 .2 Not Available [facility] (Lab) [address] [facility], [place], [address], 10/26/2024 08:14:11 10/25/19 25 10/26/2024 COMP. METAB OLIC PANEL (14) protein, total 8.4 g/dL 6.0-8. 5 Not Available [facility] (Lab) [address] [place], [address], 10/26/2024 08:14:11 10/25/19 25 10/26/2024 COMP. METAB OLIC PANEL (14) albumin 4.6 g/dL 3.9-4. 9 Not Available [facility] (Lab) [address] [facility], [place], [address], 10/26/2024 08:14:11 10/25/19 25 10/26/2024 COMP. METAB OLIC PANEL (14) globulin, total 3.8 g/dL 1.5-4. 5 Not Available [facility] (Lab) [address] [place], [address], 10/26/2024 08:14:11 10/25/19 25 10/26/2024 COMP. METAB OLIC PANEL (14) bilirubin, total <0.2 mg/dL 0.0-1. 2 Not Available [facility] (Lab) [address] [place], [address], 10/26/2024 08:14:11 10/25/19 25 10/26/2024 COMP. METAB OLIC PANEL (14) alkaline phosphatase 134 IU/L 44-121 abnormal Not Available [facility] [address] [place], [address], 10/26/2024 08:14:11 10/25/19 25 10/26/2024 COMP. METAB OLIC PANEL (14) AST (SGOT) 23 IU/L 0-40 Not Available [facility] (Lab) [address] [place], [address], 10/26/2024 08:14:11 10/25/19 25 10/26/2024 COMP. METAB OLIC PANEL (14) ALT (SGPT) 14 IU/L 0-32 Perfo rmed at: 01 - [facility] [address] [id number] [facility]8 Lab Direc tor: Huber waters PhD, Phone : [phone] Not Available [facility] (Lab) [address] [place], [address], 10/26/2024 08:14:11 10/25/19 25 10/26/2024 COMP. METAB OLIC PANEL (14) eGFR 95 >59 Resul t Units : mL/mi n/1.7 3 Not Available [facility] (Lab) [address] [place], [address], 10/26/2024 08:14:11 01/23/20 25 01/22/2025 COMPL ETE BLOOD COUNT AUTO DIFF white blood count 6.1 x10e3 /uL 3.4-10 .8 normal Not Available [facility] (Lab) [address] [place], [address], 01/22/2025 20:08:52 01/23/20 25 01/22/2025 COMPL ETE BLOOD COUNT AUTO DIFF red blood count 4.01 x10e6 /uL 3.77-5 .28 normal Not Available [facility] (Lab) [address] [place], [address], 01/22/2025 20:08:52 07/14/20 25 01/22/2025 COMPL ETE BLOOD COUNT AUTO DIFF hemoglobin 10.6 g/dL 11.1-1 5.9 low Not Available [facility] [address] [place], [address], 01/22/2025 20:08:52 01/23/20 25 01/22/2025 COMPL ETE BLOOD COUNT AUTO DIFF hematocrit 34.7 % 34.0-4 6.6 normal Not Available [facility] (Lab) [address] [facility], [place], [address], 01/22/2025 20:08:52 01/23/20 25 01/22/2025 COMPL ETE BLOOD COUNT AUTO DIFF mean corpuscular volume 87 fL 79-97 normal Not Available [facility] [address] [facility], [place], [address], 01/22/2025 20:08:52 01/23/20 25 01/22/2025 COMPL ETE BLOOD COUNT AUTO DIFF mean corpuscular hemoglobin 26.4 pg 26.6-3 3.0 low Not Available [facility] [address] [facility], [place], [address], 01/22/2025 20:08:52 01/23/20 25 01/22/2025 COMPL ETE BLOOD COUNT AUTO DIFF mean corpuscular HGB conc 30.5 g/dL 31.5-3 5.7 low Not Available [facility] ([facility]) [address] [facility], [place], [address], 01/22/2025 20:08:52 01/23/20 25 01/22/2025 COMPL ETE BLOOD COUNT AUTO DIFF red cell distribution width 15.9 % 11.5-1 4.5 high Not Available [facility] ([facility]) [address] [place], [address], 01/22/2025 20:08:52 01/23/20 25 01/22/2025 COMPL ETE BLOOD COUNT AUTO DIFF platelet count 297 x10e3 /uL 150-45 0 normal Not Available [facility] (Lab) [address] [facility], [place], [address], 01/22/2025 20:08:52 01/23/20 25 01/22/2025 COMPL ETE BLOOD COUNT AUTO DIFF mean platelet volume 11.0 fL 8.9-12 .7 normal Not Available [facility] (Lab) [address] [place], [address], 01/22/2025 20:08:52 01/23/20 25 01/22/2025 COMPL ETE BLOOD COUNT AUTO DIFF immature granulocytes pct auto 0.2 % not estb. Not Available [facility] (Lab) [address] [facility], [place], [address], 01/22/2025 20:08:52 01/23/20 25 01/22/2025 COMPL ETE BLOOD COUNT AUTO DIFF neutrophils percent auto 43 % not estb. Not Available [facility] (Lab) [address] [facility], [place], [address], 01/22/2025 20:08:52 01/23/20 25 01/22/2025 COMPL ETE BLOOD COUNT AUTO DIFF lymphocytes percent auto 49 % not estb. Not Available [facility] (Lab) [address] [facility], [place], [address], 01/22/2025 20:08:52 01/23/20 25 01/22/2025 COMPL ETE BLOOD COUNT AUTO DIFF monocytes percent auto 8 % not estb. Not Available [facility] (Lab) [address] [place], [address], 01/22/2025 20:08:52 01/23/20 25 01/22/2025 COMPL ETE BLOOD COUNT AUTO DIFF eosinophils percent auto 0 % not estb. Not Available [facility] (Lab) [address] [facility], [place], [address], 01/22/2025 20:08:52 01/23/20 25 01/22/2025 COMPL ETE BLOOD COUNT AUTO DIFF basophils percent auto 0 % not estb. Not Available [facility] (Lab) [address] [place], [address], 01/22/2025 20:08:52 01/23/20 25 01/22/2025 COMPL ETE BLOOD COUNT AUTO DIFF neutrophils absolute auto 2.6 x10e3 /uL 1.4-7. 0 normal Not Available [facility] (Lab) [address] [place], [address], 01/22/2025 20:08:52 01/23/20 25 01/22/2025 COMPL ETE BLOOD COUNT AUTO DIFF immature granulocytes abs auto 0.0 x10e3 /uL 0.0-0. 1 normal Not Available [facility] (Lab) [address] [facility], [place], [address], 01/22/2025 20:08:52 01/23/20 25 01/22/2025 COMPL ETE BLOOD COUNT AUTO DIFF lymphocytes absolute auto 3.0 x10e3 /uL 0.7-3. 1 normal Not Available [facility] (Lab) [address] [facility], [place], [address], 01/22/2025 20:08:52 01/23/20 25 01/22/2025 COMPL ETE BLOOD COUNT AUTO DIFF monocytes absolute auto 0.5 x10e3 /uL 0.1-0. 9 normal Not Available [facility] (Lab) [address] [place], [address], 01/22/2025 20:08:52 01/23/20 25 01/22/2025 COMPL ETE BLOOD COUNT AUTO DIFF eosinophils absolute auto 0.0 x10e3 /uL 0.0-0. 4 normal Not Available [facility] (Lab) [address] [place], [address], 01/22/2025 20:08:52 01/23/20 25 01/22/2025 COMPL ETE BLOOD COUNT AUTO DIFF basophils absolute auto 0.0 x10e3 /uL 0.0-0. 2 normal Not Available [facility] (Lab) [address] [place], [address], 01/22/2025 20:08:52 01/23/20 25 01/22/2025 COMPL ETE BLOOD COUNT AUTO DIFF nucleated red blood cells auto 0 % 0-0 normal Not Available [facility] (Lab) [address] [place], [address], 01/22/2025 20:08:52 01/23/20 25 01/24/2025 VITAM IN D, 25-HY DROXY vitamin D, 25-hydroxy 17.2 NG/mL 30.0-1 00.0 abnormal Vitam in D defic iency has been defin ed by the Insti tute of [facility] and an Endoc rine Socie ty pract ice guide line as a level of serum 25-OH vitam in D less than 20 ng/mL (1,2) . The Endoc rine Socie ty went on to furth er defin e vitam in D insuf ficie ncy as a level betwe en 21 and 29 ng/mL (2). 1. IOM (Inst itute of [facility] ine). 2009. Dieta ry refer ence intak es for calci um and D. Angelina bonds [place]: [facility] . 2. Morgan romero [place], Yessica sutton [place], Raheem off-F shara i HEART, et al. Evalu ation , treat ment, and preve ntion of vitam in D defic iency : an Endoc rine Socie ty clini jovita pract ice guide line. JCEM. 2010; 96(7) :1911 -30. Perfo rmed at: 01 - [facility] [address] [address] Lab Direc tor: Huber waters PhD, Phone : [phone] Not Available [facility] (Lab) [address] [place], [address], 01/24/2025 07:14:59 01/23/2001/24/2025 HCG,B ETA SUBUN IT,QN T,SER UM HCG,beta subunit,qnt, serum <1 mIU/m L . Femal e (Non- pregn ant) 0 - 5 (Post menop ausal ) 0 - 8 Femal e (Preg nant) Weeks of Gesta tion 3 6 - 71 4 10 - 750 5 757 - 4135 6 677 - 18718 7 9259 -9597 63 8 82938 -2178 71 9 99481 -8278 10 10 28243 -4618 77 12 47032 -4560 12 14 42891 - 79219 15 91049 - 41812 16 5692 - 45259 17 9835 - 69689 18 6985 - 18434 Oswald ECLIA metho dolog y Perfo rmed at: 01 - [facility] n [address] [place] [address] Lab Direc tor: Huber waters PhD, Phone : [phone] Not Available [facility] (Lab) [address] [place], [address], 01/24/2025 12:11:20 02/27/20 25 02/27/2025 FRANCK TIN ferritin 25 NG/mL 15-150 Perfo rmed at: 01 - [facility] n [address] [place] [address] Lab Direc tor: Huber waters PhD, Phone : [phone] Not Available [facility] (Lab) [address] [place], [address], 02/27/2025 08:11:29 02/27/20 25 02/27/2025 IRON AND TIBC iron bind.cap.(TI BC) 386 ug/dL 250-45 0 Not Available [facility] (Lab) [address] [place], [address], 02/27/2025 08:11:30 02/27/20 25 02/27/2025 IRON AND TIBC UIBC 370 ug/dL 131-42 5 Not Available [facility] (Lab) [address] [place], [address], 02/27/2025 08:11:30 02/27/20 25 02/27/2025 IRON AND TIBC iron 16 ug/dL 27-159 abnormal Not Available [facility] (Lab) [address], [place], [address], 02/27/2025 08:11:30 02/27/20 25 02/27/2025 IRON AND TIBC iron saturation 4 % 15-55 abnormal Not Available [facility] (Lab) [address], [place], [address], 02/27/2025 08:11:30 11/26/19 23 11/25/2022 CT, abdom en + pelvi s, w/o contr ast No observ ation record ed. [address], [place], [address], 11/26/2022 22:02:54 03/08/20 25 xr knee lt 3V [facility] [place] [address] [facility] Imagin [address] [address] 3 VIEWS OF THE LEFT KNEE Clinic al Histor y: Pain Compar madeleine: January 21, 2011 3 views of the left knee demons trate the bony elemen ts to be intact . There is no eviden ce of fractu re or disloc ation. The surrou nding soft tissue s appear normal . IMPRES ERIN: No acute findin gs Ordere d By: CASTRO GRAHAM US Electr onical ly Signed By: Kd calderón MD on 025 6:59 AM Interp reted By: Kd calderón MD, 025 6:58 AM [facility] [address] [facility], [place], [address], 03/13/2025 08:22:08 03/08/20 25 XR, knee, 3 view [facility] [place] [address] [facility] Imagin [address] [place] [address] 3 VIEWS OF THE RIGHT KNEE Clinic al Histor y: Pain Compar madeleine: None 3 views of the right knee demons trate the bony elemen ts to be intact . There is no eviden ce of fractu re or disloc ation. The surrou nding soft tissue s appear normal . IMPRES ERIN: No acute findin gs Ordere d By: CASTRO GRAHAM US Electr onical ly Signed By: Kd calderón MD on 6:59 AM Interp reted By: Kd calderón MD, 6:59 AM [facility], [place], [place], [facility], 03/26/2025 11:26:07 Result Notes Documentation Provider Name and Address Organization Details Recorded Time Xr, Knee, 3 View : [address] [facility] [place] [address] 3 VIEWS OF THE RIGHT KNEE Clinical History: Pain Comparison: None 3 views of the right knee demonstrate the bony elements to be intact. There is no evidence of fracture or dislocation. The surrounding soft tissues appear normal. IMPRESSION: No acute findings Ordered By: CASTRO MOSHER Interpreted By: Kd Rae MD, 03/08/2025 6:59 AM Lourdes Gardner RN [facility], [facility] 03/26/2025 11:26:07 Problems Name Problem SNOMED Code Status Onset Date Resolution Date Notes Provider Name and Address Organization Details Recorded Time Vulvovaginiti s 40464722 Active Not Available [facility] 3 00:49:18 Trichomonal vaginitis 528186526 Active Not Available [facility] 3 00:49:18 Tachycardia 4039722 Active 2021 Not Available [facility] 3 00:49:18 Coronary arteriosclero sis 44537108 Active 2021 Not Available [facility] 3 00:49:18 Asthma 062420330 Active 2021 Not Available [facility] 3 00:49:18 Gastroesophag eal reflux disease 837548549 Active 2021 Not Available [facility] 3 00:49:18 Obstructive sleep apnea syndrome 98811035 Active 2021 Not Available [facility] 3 00:49:18 Anemia 671610920 Active 2021 Not Available [facility] 3 00:49:18 Nodule of lung 899460814 Active 2021 Not Available [facility] 3 00:49:18 Essential hypertension 38309027 Active 2024 NILTON Vela Attn: Accounting ,[address] [place], [address] , [place] - [place] 5 16:43:51 Problem Notes None recorded. Medical Equipment None Reported. Allergies Allergen ID Allergen Name Allergen Category Reaction Reaction Severity Criticality Documentation Date Start Date Code Code System Note Provider Name and Address Organization Details Recorded Time 402850 azithromy adrian medicatio n vomiting Not available Not available 10/24/2024 63945 RxNorm SHERIE Sharpe, [place] - [facility] 5 09:10:12 376602 atorvasta tin medicatio n other Not available low 11/23/20242023 07493 RxNorm Patie nt is not on a stati n as she is curre ntly pregn ant and shoul d not be on a stati n when she is of poten tial child beari ng age. SHERIE [place] [facility] 5 16:32:11 554965 clindamyc in Not available vomiting Not available low 11/23/20242018 2582 RxNorm vomit ing SHERIE [place], [place] - [facility] 5 16:32:14 Medications Name Sig Start Date Stop Date Status Note LastModified by Organization Details LastModified Time multivita min tablet take PO daily as instucte d on bottle 2024 active Not Available Not Available Not Avai lable amoxicill in 500 mg capsule TAKE 2 STAT THEN 1 FOUR TIMES DAILY UNTIL ALL TAKEN 06/24 completed Not Available Not Available Not Available acetamino phen 325 mg tablet TAKE 1 TABLET BY MOUTH EVERY DAY NEEDED FOR FEVER/PA IN active Not Available Not Available No t Available cetirizin e 10 mg tablet TAKE 1 TABLET BY MOUTH EVERY DAYsue ointment due active appoin tment duelas t seen 12/01/22 Not Available Not Available Not Available ibuprofen 800 mg tablet TAKE 1 TABLET BY MOUTH EVERY 8 HOURS 02/26 completed Not Available Not Available Not Available fluconazo le 150 mg tablet TAKE 1 TABLET BY MOUTH ONCE FOR ONE DOSE 02/26 completed Not Available Not Available Not Available metoprolo l succinate ER 50 mg tablet,ex tended release 24 hr TAKE 1 TABLET BY MOUTH EVERY DAY 02/26 completed Not Available Not Available Not Available clarithro mycin 500 mg tablet 03/14 completed Not Available Not Available Not Available ondansetr on HCl 8 mg tablet TAKE 1 TABLET BY MOUTH EVERY 8 HOURS FOR NAUSEA/V OMITING 02/26 completed Not Available Not Available Not Available ondansetr on HCl 4 mg tablet TAKE 1 TABLET BY MOUTH EVERY 8 HOURS 11/17 completed Not Available Not Available Not Available Tubersol 5 tub. unit/0.1 mL intraderm al injection solution Administ er .1ml interder keyur 11/17 completed kcraig radiosonde specialist Not Available Not Available Not Available Pyridium 200 mg tablet Take 1 tablet 3 times a day by oral route for 3 days. 11/17 completed Not Available Not Available Not Available triamcino lone acetonide 0.5 % topical ointment APPLY THIN LAYER TO AFFECTED AREAS TWICE DAILY 11/17 completed Not Available Not Available Not Available metronida zole 500 mg tablet Take 4 tablets by oral route as a single dose. 07/23 completed Not Available Not Available Not Available amlodipin e 5 mg tablet TAKE 1 TABLET BY MOUTH EVERY DAY 2024 active appt due 05/30/25 Not Available Not Available Not Available amoxicill in 500 mg tablet 03/14 completed Not Available Not Available Not Available ketorolac 10 mg tablet TAKE 1 TABLET BY MOUTH EVERY 6 HOURS NEEDED FOR PAIN 06/24 completed Not Available Not Available Not Available famotidin e 20 mg tablet TAKE 1 TABLET BY MOUTH EVERY 12 HOURS active Not Available Not Available No t Available dicyclomi ne 20 mg tablet TAKE 1 TABLET BY MOUTH THREE TIMES A DAY 02/26 completed Not Available Not Available Not Available meclizine 25 mg tablet TAKE 1 TABLET BY MOUTH THREE TIMES DAILY NEEDED FOR DIZZINES S 06/24 completed Not Available Not Available Not Available cephalexi n 500 mg capsule TAKE 1 CAPSULE BY MOUTH EVERY 8 HOURS X1 WEEK 03/14 completed Not Available Not Available Not Available pantopraz ole 40 mg tablet,de layed release TAKE 1 TABLET BY MOUTH EVERY DAY 02/26 completed Not Available Not Available Not Available erythromy adrian 5 mg/gram (0.5 %) eye ointment APPLY A THIN LAYER OF OINTMENT TO THE INSIDE OF THE BOTTOM RIGHT EYELID 4 TIMES A DAY FOR 5 DAYS 02/11 completed Not Available Not Available Not Available ferrous sulfate 325 mg (65 mg iron) tablet Take 1 tablet every day by oral route. 2024 active Patient has not complete d LABS 2 letters have been mailed. FROM 04/09/25 Not Available Not Available Not Available promethaz ine 25 mg tablet TAKE 1 TABLET BY MOUTH EVERY 4 HOURS 02/26 completed Not Available Not Available Not Available docusate sodium 100 mg capsule TAKE 1 CAPSULE BY MOUTH EVERY DAY 02/26 completed Not Available Not Available Not Available aspirin 81 mg chewable tablet Chew 1 tablet every day by oral route. active Not Available Not Available No t Available polyethyl niko glycol 3350 17 gram/dose oral powder 02/26 completed Not Available Not Available Not Available scopolami ne 1 mg over 3 days transderm al patch APPLY 1 PATCH TO SKIN EVERY 72 HOURS 02/26 completed Not Available Not Available Not Available albuterol sulfate HFA 90 mcg/actua tion aerosol inhaler INHALE 2 PUFFS BY MOUTH EVERY 4 HOURS NEEDED active Not Available Not Available No t Available ondansetr on 4 mg disintegr ating tablet DISSOLVE 1 TABLET BY MOUTH EVERY 8 HOURS NEEDED FOR NAUSEA AND VOMITING 02/26 completed Not Available Not Available Not Available fluticaso ne propionat e 50 mcg/actua tion nasal spray,lucinda pension INSTILL 2 SPRAYS INTO THE NOSTRILS ONCE DAILY active Not Available Not Available No t Available naproxen 500 mg tablet TAKE 1 TABLET BY MOUTH TWICE A DAY NEEDED FOR PAIN 02/26 completed Not Available Not Available Not Available metoclopr amide 10 mg tablet TAKE 1 TABLET BY MOUTH EVERY 6 HOURS 02/26 completed Not Available Not Available Not Available hydrocodo ne 5 mg-ibupro fen 200 mg tablet TAKE 1 TABLET BY MOUTH THREE TIMES DAILY NEEDED FOR PAIN 06/24 completed Not Available Not Available Not Available nitrofura ntoin monohydra te/macroc rystals 100 mg capsule TAKE 1 CAPSULE BY MOUTH TWICE A DAY 09/09 completed Not Available Not Available Not Available Symbicort 160 mcg-4.5 mcg/actua tion HFA aerosol inhaler INHALE 2 PUFFS BY MOUTH TWICE A DAY active Not Available Not Available No t Available cholecalc iferol (vitamin D3) 50 mcg (2,000 unit) capsule TAKE 1 CAPSULE BY MOUTH EVERY DAY active Not Available Not Available No t Available bupropion HCl 150 mg tablet,12 hr sustained -release( smoking deterrent ) Take 1 tablet twice a day by oral route. 06/24 completed Not Available Not Available Not Available Vitals Date Recorded Body height Body mass index (BMI) Body weight Body temperature Heart rate Systolic And Diastolic Provider Name and Address Organization Details Last Updated DateTime 5 170.18 cm 29.8 kg/m2 36160.5 5 g 97.5 [degF] 81 /min 147/99 mm[Hg] Cecy Dailey [place] - [facility] 5 09:11:52 Date Recorded Body height Body mass index (BMI) Body weight Body temperature Heart rate Systolic And Diastolic Provider Name and Address Organization Details Last Updated DateTime 5 170.18 cm 31.5 kg/m2 63967.0 7 g 98.3 [degF] 79 /min 116/77 mm[Hg] SHERIE Sharpe [facility] 5 16:34:09 Date Recorded Body height Body mass index (BMI) Body weight Body temperature Oxygen saturation Heart rate Systolic And Diastolic Provider Name and Address Organization Details Last Updated DateTime 3 170.18 cm 25.4 kg/m2 88771.9 6 g 97.7 [degF] 98 % 82 /min 128/88 mm[Hg] Taryn Enriquez MA [facility] 3 12:23:39 Date Recorded Body height Body mass index (BMI) Body weight Body temperature Heart rate Oxygen saturation Systolic And Diastolic Provider Name and Address Organization Details Last Updated DateTime 5 170.18 cm 31.6 kg/m2 48955.6 6 g 98 [degF] 51 /min 100 % 124/82 mm[Hg] Alexia Suleiman [facility] 5 12:51:05 Date Recorded Body height Body mass index (BMI) Body weight Body temperature Heart rate Systolic And Diastolic Provider Name and Address Organization Details Last Updated DateTime 5 170.18 cm 31.2 kg/m2 66079.8 8 g 99.2 [degF] 82 /min 121/84 mm[Hg] María Morgan MA [facility] 5 16:47:52 Social History Question Answer Notes LastModified by [facility] ion Details LastModified Time Tobacco Smoking Status Never Smoker [facility] 09/09/2022 16:32:38 What Was The Date Of Your Most Recent Tobacco Screening? 10/24/2024 Information not available 10/24/2024 How Much Tobacco Do You Smoke? No Information not available 02/11/2022 Has Tobacco Cessation Counseling Been Provided? Yes Information not available 02/11/2022 On What Date Was Tobacco Cessation Counseling Provided? 09/09/2022 Information not available 09/17/2022 Sex: Unknown Functional Status Question Answer Note LastModified by Organizat ion Details LastModified Time Do you or have you ever used any other forms of tobacco or nicotine? Yes Information not available 02/11/2022 Do you or have you ever used smokeless tobacco? Never [facility]okeless [facility] Information not available 02/11/2022 Do you or have you ever used e-cigarettes or vape? Former user of electronic cigarettes Information not available 10/24/2024 Mental Status None recorded. Family History Relationship Description Onset Age of this Age Resolved Age Notes LastModified by Organization Details LastModified Time Maternal Grandmother Myocardial infarction [address] [place] [id number] Not available 09/2021 15:09:11 Mother [facility] Not available 02/11 15:09:29 Mother Prediabetes [facility] Not avai lable 02/11/2022 15:09:40 Medical History No medical history recorded. Gynecological HistoryNo gynecological history recorded. Obstetrics History GPAL:G 0 P 0 0 0 0 Immunizations Vaccine Type Date Status Note Provider Nam e and Address Organization Details Recorded Time DTaP, unspecified formulation 6 completed Not Available [facility] 11/02/2022 00:49:18 DTaP, unspecified formulation 6 completed Not Available [facility] 11/02/2022 00:49:18 DTaP, unspecified formulation 8 completed Not Available [facility] 11/02/2022 00:49:18 DTaP, unspecified formulation 9 completed Not Available [facility] 11/02/2022 00:49:18 DTaP, unspecified formulation 0 completed Not Available [facility] 11/02/2022 00:49:18 polio, unspecified formulation 6 completed NILTON Vela Attn: Accounting[address] [place], [address], [facility] 11/10/2022 16:24:13 polio, unspecified formulation 6 completed NILTON Vela Attn: Accounting[address] [place], [address], [facility] 11/10/2022 16:24:13 polio, unspecified formulation 8 completed NILTON Vela Attn: Accounting,[address] [place], [address], [place] [facility] 11/10/2022 16:24:13 polio, unspecified formulation 9 completed Castro Mosher NP-C Attn: Accounting,[address] [facility], [place], [address], [place] [facility] 11/10/2022 16:24:13 polio, unspecified formulation 0 completed Not Available [facility] 11/02/2022 00:49:18 Hib, unspecified formulation 0 completed Not Available [facility] 11/02/2022 00:49:18 MMR 7 completed Not Available [facility] 11/02/2022 00:49:18 MMR 1 completed Not Available [facility] 11/02/2022 00:49:18 COVID-19, mRNA, LNP-S, PF, 30 mcg/0.3 mL dose 1 completed Castro Mosher NP-C Attn: Accounting,[address] [facility], [place], [address], [place] [facility] 11/10/2022 16:24:13 COVID-19, mRNA, LNP-S, PF, 30 mcg/0.3 mL dose 1 completed Castro Mosher NP-C Attn: Accounting,[address] [facility], [place], [address], [place] [facility] 11/10/2022 16:24:13 COVID-19, mRNA, LNP-S, PF, 30 mcg/0.3 mL dose 2 completed Castro Mosher WATER QUALITY ANALYST-C Attn: Accounting,[address] [facility], [place], [address], [place] [facility] 11/10/2022 16:24:13 OPV, trivalent 8 completed Castro Mosher NP-C Attn: Accounting,[address] [facility], [place], [address], [place] [facility] 11/10/2022 16:24:13 OPV, trivalent 9 completed NILTON Vela Attn: Accounting,[address] [facility], [place], [place], [address] [place] [address], [facility] 11/10/2022 16:24:13 OPV, trivalent 6 completed NILTON Vela Attn: Accounting,[address] [facility], [place], [place], [address] [place] [address], [facility] 11/10/2022 16:24:13 OPV, trivalent 0 completed NILTON Vela Attn: Accounting,[address] [facility], [place], [place], [address] [place] [address], [facility] 11/10/2022 16:24:13 OPV, trivalent 6 completed NILTON Vela Attn: Accounting,[address] [place], [place], [address] [place] [address], [facility] 11/10/2022 16:24:13 Td (adult), 2 Lf tetanus toxoid, preservative free, adsorbed 0 completed NILTON Vela Attn: Accounting,[address] [place], [place], [address] [place] [address], [facility] 11/10/2022 16:24:13 Hep B, adolescent or pediatric 0 completed NILTON Vela Attn: Accounting,[address] [place], [address] [place] [address], [facility] 11/10/2022 16:24:13 Hep B, adolescent or pediatric 6 completed NILTON Vela Attn: Accounting,[address] [place], [address] [place] [address], [facility] 11/10/2022 16:24:13 Hep B, adolescent or pediatric 1 completed NILTON Vela Attn: Accounting,[address] [place], [address] [place] [address], [facility] - [facility] 11/10/2022 16:24:13 influenza, unspecified formulation 2 completed NILTON Vela Attn: Accounting,[address], [place], [address], [facility] - [facility] 11/10/2022 16:25:20 Influenza, split virus, quadrivalent, PF 3 completed Not Available [facility] 02/26/2025 16:39:19 Tdap 4 completed Not Available [facility] 02/26/2025 16:39:19 Tdap 2 completed SHERIE Sharpe, [place] - [facility] 08/21/2021 18:00:06 Past Encounters Encounter ID Performer Location Encounter Start Date Encounter Closed Date Diagnosis/Indication Diagnosis SNOMED-CT Code Diagnosis ICD10 Code Diagnosis IMO Codes Diagnosis Note [id number] John Guzman PA-C [facility] [address] [facility] [facility] [address] [place] [address] 07/10/2015 18:06:33 07/10/2015 19:09:33 Vulvovaginitis 95555732 N76.0 Likely due to vulvovagin al candidiasi s. Will treat with diflucan, take as directed. May need to repeat or re-evaluat e (no speculum exam performed since pt is on her cycle) in 3-4 days if no improvemen t. Will screen for Ng/Ct/Tric h and report results when available. Answered all questions and pt expressed understand ing. [id number] EDUARDO Doran [facility] FP (HUSSAIN 104) [address] [place] [address] 08/21/2021 11:31:42 08/26/2021 09:02:42 Antibody measurement 9493146 Z01.84 lab pending. will tailor treatment accordingl y upon receipt. Tuberculos is screening 521598856 Z11.1 lab pending. will tailor treatment accordingl y upon receipt. 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 -start SSRI-will take 2-3 weeks to reach full effect, encouraged to take at the same time daily-enco uraged counseling -RTC 3-4 weeks for med management -Report to ER for SI Body mass index 20-24 - normal 534150006 Z68.24 Seasonal a llergic rhinitis 429944476 J30.2 -not controlled -start daily antihistam ine and nasal steroid-di scussed allergen avoidance Smoker 59614329 F17.200 -encourage d cessation [id number] NILTON Vela e FP ([facility] 104) [address] [place] [address] 06/09/2022 12:42:31 06/10/2022 11:43:12 Viral gastroenteritis 761461035 A08.4 -zofran for symptoms-a dvised should not be working if she is vomiting or running fevers as she is contagious .-f/u if no change Overweight 010882242 E66 .3 [id number] NILTON Vela [facility] ([facility] 104) [address] [place] [address] 06/24/2022 14:43:40 06/25/2022 11:00:56 Dizziness 877618363 R42 -check labs to r/o anemia, thyroid dysfunctio n and blood sugar issue-will f/u based on lab results-to ER for any syncope. Overweight 805377428 E66 .3 [id number] PARUL Doran-SULE[facility] ([facility] 104) [address] [place] [address] 09/07/2022 10:28:55 09/08/2022 15:10:00 Tuberculosis screening 538576717 Z11.1 [id number] Castro Holthaus, WATER QUALITY ANALYST-C [facility] ([facility] 104) [address] [place] [address] 09/09/2022 16:25:41 09/18/2022 10:07:13 Thoracic back pain 680133331 M54.6 -send to physical therapy-ty lenol and motrin for pain as needed-enc ouraged supportive bra Cyst of le ft Bartholin's gland duct 3420629618 6309648 N75.0 -hot sitz baths-f/u if worsening Tuberculos is screening 014363298 Z11.1 Overweight 038151263 E66 .3 Positive s creening for depression on PHQ-9 (Patient Health Questionnaire 9) 0782962873 66339 Z13.31 -denies depressive symptoms-d eclined meds and CBT Electronic cigarette user 509372358 Z72.89 -encourage d cessation [id number] NILTON Vela [facility] ([facility] 104) [address] [place] [address] 10/05/2022 12:42:28 10/09/2022 17:07:41 Suprapubic pain 686728091 R10.30 -UA negative-s uspect pain from high caffeine intake-pyr idium for bladder spasms-f/u if no improvemen t Overweight 815886000 E66 .3 [id number] NILTON Vela [place] [facility] ([facility] 104) [address] [place] [address] 11/10/2022 16:04:23 12/08/2022 10:34:53 History and physical examination, pre-employment 125727011 Z02.1 -forms completed- no red flags to exclude Overweight 333861024 E66 .3 [id number] PARUL Doran-BC [place] [facility] ([facility] 104) [address] [place] [address] 11/17/2022 12:12:28 11/18/2022 12:36:23 Nausea and vomiting 30409212 R11.2 hydration and rest encouraged UPT neg. serum HCG lab result pending. will tailor treatment accordingl y upon receiptfu w/ PCP/OBGYN accordingl yreport to ED if s/s [id number] everardo need for zofran; as prior Rx given per [facility] (seen for similar s/s). neg. diagnostic s per pt Urine preg shahriar test negative 350898029 Z32.02 lab pending. will tailor treatment accordingl y upon receipt. [id number] Castro Mosher, NILTON Sims ([facility] 104) [address] [place] [address] 12/01/2022 12:14:12 12/04/2022 13:37:04 Neuropathy 908391705 G62.9 -check B12 Iron defic iency anemia 53049895 D50.9 -recheck labs 6 weeks Dizziness 175495360 R42 -on iron for anemia-ramos l f/u based on lab results-to ER for any syncope.-m ay need to consider MRI brain to r/o MS Overweight 295296522 E66 .3 Positive s creening for depression on PHQ-9 (Patient Health Questionnaire 9) 2327275319 96759 Z13.31 -denies depressive symptoms-d eclined meds and CBT [id number] MD Levi Ram (H[facility] 104) [address] [place] [address] 10/24/2024 09:01:53 11/17/2024 14:32:43 Essential hypertension 08510988 I10 BP Goal: Less than 140/90BP Controlled : no initiate amlodipine Healthy Weight: 5'7= 121-158 lbsDiscuss ed: Low sodium balanced diet, moderate exercise at least 3-4 times per week for an average of 40 minutes, limiting alcohol to 1 drink per day (F) or 2 drinks per day (M), and smoking cessation if currently smoking.Ne xt Visit: 1month(s) Low back pain 386340643 M54.50 -refer to PT-tylenol and motrin as needed for pain-heat and ice to back Diastasis recti 09314704 M62.08 -4 mo pp- needs to wait at least 2 more months before referral to see if symptoms improve-di scussed abd exercises Overweight 432509467 E66 .3 [id number] MD Nixon Ram [facility] ([facility] 104) [address] [place] [address] 11/23/2024 16:25:56 11/24/2024 15:12:37 Essential hypertension 64735959 I10 51148 BP Goal: Less than 140/90BP Controlled : yesHealthy Weight: 5'7= 121-158 lbsDiscuss ed: Low sodium balanced diet, moderate exercise at least 3-4 times per week for an average of 40 minutes, limiting alcohol to 1 drink per day (F) or 2 drinks per day (M), and smoking cessation if currently smoking.Ne xt Visit: 3month(s) [id number] MD Nixon Ram [facility] ([facility] 104) [address] [place] [address] 01/22/2025 12:45:16 02/09/2025 14:35:24 Nausea 386386301 R11.0 96379 -check beta-hcg to r/o - encouraged small, frequent meals Fatigue 21990458 R53.83 88783995 -check labs to r/o anemia and vitamin D deficiency [id number] MD Nixon Ram [facility] ([facility]IN 104) [address] [place] [address] 02/26/2025 16:38:40 03/23/2025 13:04:19 Essential hypertension 78113709 I10 77706 BP Goal: Less than 140/90BP Controlled : yesHealthy Weight: 5'7= 121-158 lbsDiscuss ed: Low sodium balanced diet, moderate exercise at least 3-4 times per week for an average of 40 minutes, limiting alcohol to 1 drink per day (F) or 2 drinks per day (M), and smoking cessation if currently smoking.Ne xt Visit: 3month(s) Vitamin D deficiency 347 06368 E55.9 29694 -check labs to r/o anemia and vitamin D deficiency Anemia 798410685 D64.9 -stable, needs refill Does take medication 715 314253 Z78.9 98962527 -needs script for FSA Pain of knee region 1003 409267 M25.561 M25.562 G89.29 38759518 -acute on chronic pain -Initial Management : R.I.C.E. Protocol (Rest, Ice, Compressio n, Elevation) for acute pain and swelling.N SAIDs (e.g., ibuprofen) for pain and inflammati on control.Av oid weight-kassy ring on the affected leg; crutches may be used if necessary. -Investiga tions: X-ray of the knee to rule out fractures, dislocatio n, or bony abnormalit ies. -Referral: PT -Follow-up : Reassessme nt: If symptoms persist or worsen, follow up in 1-2 weeks to assess for progressio n or resolution of symptoms.M onitor for worsening pain, swelling, or difficulty with weight-kassy ring, which could suggest a more severe injury. -Patient Education: Educated about avoiding excessive strain or activity that could worsen the condition. Recommend gradual return to physical activity, especially if a significan t injury is diagnosed. Advise on proper use of NSAIDs for pain control and when to stop using them. Health Concerns Section Related Observation LastModified by Organization Detai ls LastModified Time None Recorded Concern Status LastModified by Organization Details LastModified Time None Recorded Advance Directives Directive None Recorded Payers Insurance Date Sequence Insurance Name Policy Number Policy Jean Covered Member ID Jean Member ID Guarantor Name 03/23/2025 1 [facility] (MEDICAID HMO) [id number] Melanie Smith [id number] Melanie Muñoz 10/24/2024 [facility] ADULT BASIC EDUCATION PROGRAM Melanie Muñoz [facility]P [facility] Melanie Muñoz 10/24/2024 [facility] Melanie Muñoz [id number] Melanie Muñoz 10/24/2024 1 [facility] [id number] Melanie Garcia [id number] Melanie Muñoz Notes Date Note Type Note Provider Name and Address Organization Details Recorded Time 12/01/2022 text/html ROS as noted in the HPI Melanie is here today for ER f/u. She was seen at [facility] on 11/25 but we only have the CT report from that visit. She is still having some numbness in her hands and feet and intermittently feeling off balance. Symptoms have improved some but still getting intermittent dizziness and numbness. THAI VelaC Attn: Accounting[address] [facility], [place], [address], [facility] 12/03/2022 17:04:57 10/24/2024 text/html ROS as noted in the HPI Melanie is here today with complaints of low back pain since epidural. Getting worse over the last few months. She does not get much relief with tylenol or motrin. NILTON Vela Attn: Accounting[address] [place], [address], [facility] 11/16/2024 21:00:31 11/23/2024 text/html Hypertension F/UReported by PatientHPIFor associated symptoms, patient reportsno dizziness,no lightheadedness,no chest pain,no shortness of breath,no palpitations,no edema, andno calf pain with exertion. For lifestyle, patient reportsregular exerciseandlimiting/ avoiding salt. For medications, patient reportstaking medications as directedandno side effects from medication.ROS as noted in the HPI NILTON Vela Attn: Accounting,[address] [place], [address], [facility] 11/23/2024 20:08:28 01/22/2025 text/html ROS as noted in the HPI Melanie is here today with complaints of fatigue and poor moods for the last 3 weeks and getting worse. She feels very tired and doesn't want to do anything, which is unlike her. No events that could cause this change. No new medications. Menses are regular. No recent NSAID use. She takes a pre- vitamin. No chance of . No fevers. She does report nausea and vomiting. LMP 01/04. NILTON Vela Attn: Accounting,[address] [facility], [place], [address], [facility] 02/08/2025 15:10:01 02/26/2025 text/html Hypertension F/UReported by PatientHPIFor associated symptoms, patient reportsno dizziness,no lightheadedness,no chest pain,no shortness of breath,no palpitations,no edema, andno calf pain with exertion. For lifestyle, patient reportsregular exerciseandlimiting/ avoiding salt. For medications, patient reportstaking medications as directedandno side effects from medication.ROS as noted in the HPI Melanie is here today with multiple complaints She is having pain in both knee. She notes intermittent swelling and weakness. Some popping and cracking THAI VelaC Attn: Accounting,[address] [facility], [place], [address], [place] [facility] 03/22/2025 23:54:06 OBGyn Episode No OBEpisode recorded.
--- OUTSIDE RECORDS SUMMARY | 2025-06-15 01:33 | XMS_ITS | Clinical Summary ---
Author Organization [facility] Address [facility] [place] [address] Care Team Providers Care Enamel Pulverizer Name Role Phone Zulma Mario NP Primary Care Provider [phone] Allergies Active Allergy Reactions Criticality Noted Date [...] TO EPIC CONVERSION Comment:Result Comment: Cain Hancock, Concrete Stone Finishing Supervisor (ASCP) COMMENT . TOUCHWORKS TO EPIC CONVERSION [...] Most Recently Relevant to Health Maintenance Insurance [place] Care Teams Enamel Pulverizer Relationship Specialty Start Date End Date Zulma Mario NP PCP - General Nurse Practitioner Family 10/05/22
--- OUTSIDE RECORDS SUMMARY | 2025-06-15 01:33 | XMS_ITS | Data Portability ---
Author Organization [place] - [employer], Main Office Address [address] [place] [address] Care Team Providers Care Commercial Accountant Name Role Phone CASTRO MOSHER Primary Care Provider Assessment Encounter Date Assessment Date Assessment LastModified by Organization Details LastModified Time 04/20/2023 04/20/2023 This note is dictated and transcribed by [employer]. Director Of Gift Planning variances may occur. Despite proofreading, typographical errors may occur. [email or web address] Not available 04/21/2023 14:02:45 05/13/2023 05/13/2023 This note is dictated and transcribed by [employer]. Director Of Gift Planning variances may occur. Despite proofreading, typographical errors may occur. [email or web address] Not available 05/13/2023 16:56:28 Plan of Treatment Reminders Order Date Submit Date Provider Last Modified By Organization Details Last Modified Time Details Appointments None recorded. Lab None recorded. Referral None recorded. Procedures None recorded. Surgeries None recorded. Imaging US, ankle [address] [facility] ([facility]), [address] [place], [address], 4 14:38:14 Medication Orders diclofenac sodium 75 mg tablet,sydnee yed release 2022 023 matias Carrington [id number], [address] , [place], [address], 3 13:59:31 Patient TargetsNo targets recorded. Patient InstructionsNo instructions recorded. Reason for Referral None Reported. Results Created Date Observation Date Name Description Value Unit Range Abnormal Flag Note LastModifiedBy Organization Detail LastModifiedTime 07/26/19 24 07/20/2023 US, ankle [facility] [address] [place] [address] [phone] Virgie nieves Name: LUKE MUÑOZ R Access ion #: [id number] Sex: F : 1985 7 Locati on: RAD Attend ing Physic pritesh: AVINASH DOUGHERTY Orderi ng Physic pritesh: AVINASH DOUGHERTY Exam Date: 07/20/19 7:38 AM Exam Name: US ANKLE RT COMPLE TE Admitt ing Diagno sis(es ): RADIOL OGY REPORT - FINAL EXAM: US ANKLE RT COMPLE TE HISTOR Y: right ankle pain 37-yea r-old female with right ankle pain for 2 months wilfrido latera lly. COMPAR RIVER: Right ankle radiog raphs dated 2022. TECHNI QUE: Ultras ound evalua tion of the right ankle was perfor med. FINDIN GS: Tendon s: There is fusifo rm thicke brittany of the extens or digito rum longus tendon . The tibial is anteri or, extens or halluc is longus , perone us longus , and perone us brevis tendon s are intact . There is low echoge nicity of the distal Achill es tendon near the insert ion. There is a small Achill es insert ion enthes ophyte . The Achill es tendon demons trates normal morpho logy Page 1 of 2 [facility] Virgie t Name: LUKE MUÑOZ R Access ion #: [id number] Sex: F : 1985 7 Exam Date: 07/20/19 7:38 AM Exam Name: US ANKLE RT COMPLE TE Admitt ing Diagno sis(es ): and echoge nicity otherw ise. Ligame nts: There is hetero geneou s echoge nicity and attenu ation of the anteri or talofi bular ligame nt. There is mild thicke brittany and hetero geneit y of the calcan eofibu lar ligame nt. The anteri or tibiof ibular ligame nt is intact . No signif icant joint effusi ons are identi fied here. IMPRES ERIN: 1. Mild tendin osis involv ing the extens or digito rum longus tendon . 2. Interm ediate grade chroni c partia l tear of the anteri or talofi bular ligame nt and low-gr romel chroni c partia l tear of the calcan eofibu lar ligame nt. 3. Mild Achill es insert ion enthes opathy . Create d and electr onical ly signed by: Olu hu MD Signed Date: 1:36 PM (CT) Dictat ed by: Olu hu MD DD: 1:36 PM (CT) DT: 1:36 PM (CT) Page 2 of 2 [email or web address] [facility] (Imaging) [address] [place], [address], 07/27/2023 16:46:34 Result Notes None recorded. Problems Name Problem SNOMED Code Status Onset Date Resolution Date Notes Provider Name and Address Organization Details Recorded Time Disorder of lung 29072844 Active 2022 María timmons [facility] 3 16:56:50 Headache 91535927 Active 2022 María timmons [facility] 3 16:56:57 Heart disease 66441960 Active 2022 María timmons [place] [facility] 3 16:57:05 Heartburn 29995168 Active 2022 María timmons [facility] 3 16:57:13 Dizziness 699881755 Active 2022 María timmons [place] [facility] 3 16:57:23 Depressive disorder 91435025 Active 2022 María timmons [facility] 3 16:57:30 Cardiac arrhythmia 529643735 Active 2022 María timmons, [facility] 3 16:57:53 Asthma 692007112 Active 2022 María Pickett null, [facility] 3 16:58:03 Anxiety 63339106 Active 2022 María Pickett null, [facility] 3 16:58:23 Coronary arterioscl erosis 09032834 Active 2022 María Pickett null, [facility] 3 16:58:32 Anemia 686391020 Active 2022 María Pickett null, [facility] 3 16:58:43 Seasonal allergy 311990041 Active 2022 María Pickett null, [facility] 3 16:58:58 Pain in right foot 6243516177062 07 Active 2022 Avinash Ruelas DPM [address], [address], [place], [address] , [facility] 3 17:09:57 Pain of right ankle joint 1012766160148 9106 Active 2022 Avinash Ruelas DPM [address], [address], [place], [address] , [facility] 3 08:51:44 Sprain of lateral ligament of ankle joint 804759878 Active 2022 Avinash Ruelas DPM [address], [address], [place], [address] , [facility] 3 09:14:44 Notes:BACK/NECK PROBLEMS Problem Notes None recorded. Procedures Surgical History Date Name Laterality Status Provider Name and Address Organization Details Recorded Time 3 Joint Injection-Podi atry completed Avinash Ruelas DPM [address], [address], [place], [address], [place] [facility] [employer] 05/13/2023 17:13:23 6 Lumpectomy completed María Pickett [facility] [employer] [facility] 04/20/2023 17:02:03 Imaging Results None recorded. Procedure Notes None recorded. Medical Equipment None Reported. Allergies Allergen ID Allergen Name Allergen Category Reaction Reaction Severity Criticality Documentation Date Start Date Code Code System Note Provider Name and Address Organization Details Recorded Time 96251 house dust allergeni c extract environme nt,medica tion Not available Not available Not available 04/20/2023 52519 9 RxNorm María Pickett null, [facility] [employer] [facility] 16:54:39 Medications Name Sig Start Date Stop Date Status Note LastModified by Organization Details LastModified Time acetaminoph en 325 mg tablet TAKE 1 TABLET BY MOUTH EVERY DAY NEEDED FOR FEVER/KELSI N 04/20 completed Not Available Not Available Not Available cetirizine 10 mg tablet TAKE 1 TABLET BY MOUTH EVERY DAY active Not Available Not Available No t Available metoprolol succinate ER 50 mg tablet,exte nded release 24 hr TAKE 1 TABLET BY MOUTH EVERY DAY active Not Available Not Available No t Available phenazopyri dine 200 mg tablet TAKE 1 TABLET BY MOUTH THREE TIMES A DAY FOR 3 DAYS 04/20 completed Not Available Not Available Not Available metronidazo le 0.75 % (37.5 mg/5 gram) vaginal gel USE 1 APPLICATO R EVERY NIGHT AT BEDTIME X 5 DAYS 04/20 completed Not Available Not Available Not Available ondansetron HCl 4 mg tablet TAKE 1 TABLET BY MOUTH EVERY 8 HOURS 04/20 completed Not Available Not Available Not Available triamcinolo ne acetonide 0.5 % topical ointment APPLY THIN LAYER TO AFFECTED AREAS TWICE DAILY 04/20 completed Not Available Not Available Not Available ketorolac 10 mg tablet TAKE 1 TABLET BY MOUTH EVERY 6 HOURS NEEDED FOR PAIN 04/20 completed Not Available Not Available Not Available oxycodone-a cetaminophe n 5 mg-325 mg tablet TAKE 1 TABLET BY MOUTH EVERY 6 HOURS NEEDED FOR PAIN 04/20 completed Not Available Not Available Not Available famotidine 20 mg tablet TAKE 1 TABLET BY MOUTH EVERY 12 HOURS FOR 10 DAYS 04/20 completed Not Available Not Available Not Available dicyclomine 20 mg tablet TAKE 1 TABLET BY MOUTH THREE TIMES A DAY 04/20 completed Not Available Not Available Not Available meclizine 25 mg tablet TAKE 1 TABLET BY MOUTH THREE TIMES DAILY NEEDED FOR DIZZINESS 04/20 completed Not Available Not Available Not Available cephalexin 500 mg capsule TAKE 1 CAPSULE BY MOUTH EVERY 8 HOURS X1 WEEK 04/20 completed Not Available Not Available Not Available pantoprazol e 40 mg tablet,sydnee yed release TAKE 1 TABLET BY MOUTH EVERY DAY active Not Available Not Available No t Available ferrous sulfate 325 mg (65 mg iron) tablet TAKE 1 TABLET BY MOUTH TWICE A DAY 04/20 completed Not Available Not Available Not Available docusate sodium 100 mg capsule TAKE 1 CAPSULE BY MOUTH EVERY DAY 04/20 completed Not Available Not Available Not Available diclofenac sodium 75 mg tablet,sydnee yed release TAKE 1 TABLET BY MOUTH TWICE A DAY NEEDED active Not Available Not Available No t Available polyethylen e glycol 3350 17 gram/dose oral powder MIX 17 GRAMS IN LIQUID & DRINK EVERY 10 MINUTES FOR 8 DOSES 04/20 completed Not Available Not Available Not Available ondansetron 4 mg disintegrat ing tablet DISSOLVE 1 TABLET ON TOP OF THE TONGUE WHERE IT WILL DISSOLVE, THEN SWALLOW 4 TIMES A DAY 04/20 completed Not Available Not Available Not Available fluticasone propionate 50 mcg/actuati on nasal spray,suspe nsion INSTILL 2 SPRAYS INTO THE NOSTRILS ONCE DAILY active Not Available Not Available No t Available naproxen 500 mg tablet TAKE 1 TABLET BY MOUTH TWICE A DAY NEEDED FOR PAIN 04/20 completed Not Available Not Available Not Available nitrofurant oin monohydrate /macrocryst als 100 mg capsule TAKE 1 CAPSULE BY MOUTH TWICE A DAY 04/20 completed Not Available Not Available Not Available Vitals Date Recorded Body height Body mass index (BMI) Body weight Heart rate Respiratory rate Oxygen saturation Systolic And Diastolic Provider Name and Address Organization Details Last Updated DateTime 4 168.91 cm 26.7 kg/m2 58688.5 2 g 90 /min 14 /min 99 % 141/90 mm[Hg] Linda Everett [facility] 4 16:46:25 Date Recorded Body height Body mass index (BMI) Body weight Provider Name and Address Organization Details Last Updated DateTime 04/20/2023 168.91 cm 26.7 kg/m2 55572.52 g María Piyush [facility] [employer] [facility] 04/20/2023 16:54:23 Date Recorded Heart rate Respiratory rate Oxygen saturation Systolic And Diastolic Provider Name and Address Organization Details Last Updated DateTime 04/20/2023 87 /min 14 /min 99 % 149/95 mm[Hg] Linda Crespo [facility] [employer] [facility] 3 16:56:28 Date Recorded Body height Body mass index (BMI) Body weight Heart rate Respiratory rate Oxygen saturation Systolic And Diastolic Provider Name and Address Organization Details Last Updated DateTime 3 168.91 cm 26.7 kg/m2 33727.5 2 g 83 /min 14 /min 99 % 151/100 mm[Hg] Linda Zak [facility] [employer] [facility] 3 16:52:47 Date Recorded Body height Body mass index (BMI) Body weight Heart rate Respiratory rate Oxygen saturation Systolic And Diastolic Provider Name and Address Organization Details Last Updated DateTime 3 168.91 cm 26.7 kg/m2 61314.5 2 g 107 /min 14 /min 99 % 145/91 mm[Hg] Linda Zak [facility] [employer] [facility] 3 17:12:11 Social History Question Answer Notes LastModified by Organizat [employer] Details LastModified Time Tobacco Smoking Status Former Smoker [facility] [employer] [facility] 07/27/2023 16:41:47 When Did You Quit Smoking? 1-5yearssinc elastcigaret te Information not available 07/27/2023 How Many Years Have You Smoked Tobacco? 16 Information not available 07/27/2023 Sex: Unknown Functional Status Question Answer Note LastModified by Organizat ion Details LastModified Time What is your level of alcohol consumption? Occasional Information not available 04/20/2023 Mental Status None recorded. Family History Relationship Description Onset Age of this Age Resolved Age Notes LastModified by Organization Details LastModified Time Unspecified Relation Diabetes mellitus [employer] Not available 04/20/2023 16:59:35 Unspecified Relation Cerebrovascu lar accident GR[employer]M OTHER Not available 07/27/2023 16:41:47 Unspecified Relation Arthritis GRANDM OTHER Not available 07/27/2023 16:41:47 Unspecified Relation Hypertensive disorder [employer] Not available 04/20/2023 17:00:30 Unspecified Relation Heart disease GRANDM OTHER Not available 04/20/2023 17:00:51 Mother Arthritis Not available 07/27/2023 16:41:47 Mother Hypertensive disorder Not available 2022 17:00:30 Mother Heart disease Not available 2022 17:00:51 Mother Osteoporosis Not availa ble 07/27/2023 16:41:47 Medical History Condition Response HEADACHES/MIGRAINES Y USE OF BLOOD THINNERS Y DIZZINESS Y HEART DISEASE/HEART PROBLEMS Y ALLERGIES/HAYFEVER Y HEARTBURN / REFLUX Y CARDIAC ARRHYTHMIA Y ANXIETY DISORDER Y ANEMIA/BLOOD DISORDER Y PULMONARY DISEASE Y CORONARY ARTERY DISEASE (CAD) Y DEPRESSION (INCLUDING POST ) Y BACK / NECK PROBLEMS Y Gynecological HistoryNo gynecological history recorded. Obstetrics History GPAL:G 0 P 0 0 0 0 Past Encounters Encounter ID Performer Location Encounter Start Date Encounter Closed Date Diagnosis/Indication Diagnosis SNOMED-CT Code Diagnosis ICD10 Code Diagnosis IMO Codes Diagnosis Note [id number] Avinash Ruelas DPM [facility] [place] [address] [place] [phone] 04/20/2023 16:48:02 04/21/2023 16:57:48 Pain in right foot 9309471468 23943 M79.671 Continue offloading with crutchrice therapyno strenuous activities x-rays from 04/10/2023 reviewed ankle and foot negative for acute injuryfoll ow-up in 3-4 weeks if continues to be problemati c we will obtain ultrasound versus MRI [id number] Avinash Ruelas DPM [facility] [place] [address] [place] [phone] 05/13/2023 16:49:32 05/17/2023 12:54:56 Pain of right ankle joint 5275977373 0571746 M25.571 steroid injection todayrice therapycon tinue diclofenac as neededno strenuous activities continue supportive shoe gearfollow -up 1 month [id number] Avinash Ruelas DPM [facility] [place] [address] [place] [id number] 06/17/2023 17:08:59 06/21/2023 14:22:34 Pain of right ankle joint 2905121515 9363135 M25.571 steroid injection last visit- helpedrice therapycon tinue diclofenac as neededno strenuous activities continue supportive shoe gearfollow -up 1 month Sprain of lateral ligament of ankle joint 052294127 S93.491D as aboveorder ultrasound rule out injury to collateral ligament [id number] Avinash Ruelas DPM [facility] [place] [address] [place] [phone] 07/27/2023 16:41:33 07/27/2023 17:06:32 Pain of right ankle joint 0032439391 0630638 M25.571 steroid injection last visit- helpedrice therapycon tinue diclofenac as neededslow ly return to normal activities continue ankle range of motion exercises dailymay utilize over-the-c ounter lace-up ankle braceultra sound reviewed with patient- chronic partial tearing collateral ligamentfo llow-up as needed, if continues to be problemati c MRI follow-up and likely formal physical therapy and if that fails may require reconstruc tion of the ligaments. Health Concerns Section Related Observation LastModified by Organization Detai ls LastModified Time None Recorded Concern Status LastModified by Organization Details LastModified Time None Recorded Advance Directives Directive None Recorded Payers Insurance Date Sequence Insurance Name Policy Number Policy Jean Covered Member ID Jean Member ID Guarantor Name 11/09/2024 1 [place] [id number] Melanie Muñoz [id number] Melanie Muñoz 03/22/2024 2 [facility] [place] [facility] Melanie Muñoz [id number] Melanie Muñoz 03/22/2024 2 [employer] [facility] [facility] (MEDICAID HMO) [id number] Melanie Muñoz [id number] Melanie Muñoz 07/27/2023 1 [facility] (MEDICAID HMO) [id number] Melanie Muñoz [id number] Melanie Muñoz Notes Date Note Type Note Provider Name and Address Organization Details Recorded Time 04/20/2023 text/html . Patient is a 37-year-old female who presents the office with complaints of right foot pain. Patient states that she will cut with foot pain. 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 Patient states she had no injury or wounds to the foot. Patient states she was seen in the emergency room on 04/10/2023 had x-rays which were negative for any acute fracture. Patient was given a postop shoe and crutch which she has been utilizing. Patient denies any other complaints. Avinash Ruelas DPM [address] [facility] [address], [place], [address], [employer] 04/21/2023 14:04:16 05/13/2023 text/html . Patient is a 37-year-old female who returns the office for follow-up on right foot pain. Patient had x-rays which were negative for any acute injury. Patient has been on oral diclofenac and states that her pain is 60% improved. Patient states she is still having mild discomfort but overall is better. Avinash Ruelas DPM [address] [facility], [facility] [address], [place], [address], [employer] 05/17/2023 08:52:14 06/17/2023 text/html . Patient is a 37-year-old female who returns the office for follow-up on ankle pain. Patient underwent a steroid injection which she states did help for a few days but she is back to having discomfort with walking. Patient explains the pain as being in the lateral ankle. Patient denies any instability with walking. Patient denies any other complaints. Avinash Ruelas DPM [address] [facility], [facility] [address], [place], [address], [employer] 06/21/2023 09:15:26 07/27/2023 text/html . Patient is a 37-year-old female who returns the office for follow-up on right ankle ultrasound. 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 Patient denies any giving out of the ankle with weight-bearing. Patient states she does do at home range of motion exercises of the ankle and states with the injection and range of motion exercises she has done very well. Patient states on occasion she will have some very minor pain but she does not want to continue with any physical therapy and will continue to do at-home therapy. Patient denies any other complaints. Avinash Ruelas DPM [address] [facility] [address], [place], [address], [place] [facility] [employer] 07/27/2023 17:02:23 OBGyn Episode No OBEpisode recorded.
--- OUTSIDE RECORDS SUMMARY | 2025-06-15 01:33 | XMS_ITS | Encounter Summary ---
Author Organization [facility] Address [address] [place] [address] Care Team Providers Care Bottoming Room Inspector Name Role Phone Guerda Jimenez DO Primary Care Provider + [phone] Deneen Galo MD Unavailable [phone] Reason for Visit * Reason Comments Refill Request Encounter Details Date Type Department Care Team (Late st Contact Info) Description 06/15/2025 Refill [facility]NAL/ EVALUATION UNIT [address] [facility] [place] [address] Elgin Mcbride MD [address] [facility] [address] [place] [address] Refill Request Social History Tobacco Use Types Packs/Day Years Used Date Smoking Tobacco: Former Cigarettes Smokeless Tobacco: Never Alcohol Use Standard Drinks/Week Comments Not Currently [...] Recorded Patient Health Questionnaire-2 Score 0 03/31/2024 [facility] - Occupational Stress Questionnaire Answer Date Recorded [...] money to buy more. Never true 06/22/20 Within the past 12 months, t he [...] place to sleep or slept in a [place] (including now)? No 04/04/2024 Norris Depression Scale Answer Date Recorded Norris Depression Scale Total 4 06/25/2024 The thought [...] any time in the past 12 [facility], were you homeless or living in a [place] (including now)? No 06/22/2024 Comments No Sex and Gender Information Value Date Recorded Sex Assigned at Female 01/12/2024 7:53 PM CDT Legal Sex Female 12:09 PM CDT Gender Identity Female 01/12/2024 7:53 PM CDT Sexual Orientation Straight 01/12/2024 7: 53 PM CDT documented as of this encounter Functional Status * Is person deaf or have serious hearing difficulty? Answer Date of Assessment Author No 06/22/2024 10:43 AM Barak Chirinos RN * Is person blind or have serious difficulty seeing? Answer Date of Assessment Author No 06/22/2024 10:43 AM Barak Chirinos RN * Does person have serious difficulty walking/climbing stairs? Answer Date of Assessment Author No 06/22/2024 10:43 AM Barak Chirinos RN * Does person have difficulty dressing/bathing? Answer Date of Assessment Author No 06/22/2024 10:43 AM Barak Chirinos RN * Does person have difficulty doing errands alone? Answer Date of Assessment Author No 06/22/2024 10:43 AM Barak Chirinos RN documented as of this encounter Mental Status * Does person have difficulty concentrating/remembering/making decisions? Answer Entry Date Author No 06/22/2024 10:43 AM Barak Chirinos RN documented in this encounter Plan of Treatment Not on file documented as of this encounter Visit Diagnoses Diagnosis Moderate persistent asthma without complication (HCC) Unspecified asthma Seasonal allergies Allergic rhinitis, cause unspecified documented in this encounter Care Teams Bottoming Room Inspector Relationship Specialty Start Date End Date Guerda Jimenez DO [address] [place] [address] PCP - General 12/15/17 Deneen Galo MD [address] [facility] [address] [place] [address] Resident Obstetrics and Gynecology 03/30/24 documented as of this encounter
[2025-06-15 01:49] LABS: Hematocrit 34.4 % (37.0-47.0); Hemoglobin 10.6 g/dL (12.0-15.0); Immature Granulocyte Percent A 0.2 % (0-0.5); Lymphocytes Absolute Auto 3.21 K/mm3 (0.9-3.2); Mean Corpuscular HGB Conc 30.8 g/dl (32-36); Mean Corpuscular Hemoglobin 26.2 pg (26-34); Mean Corpuscular Volume 84.9 fl (80-100); Nucleated Red Blood Cells Absolute Auto 0.000 K/mm3 (0.0-0.012); Nucleated Red Blood Cells Perc 0.0 % (0.0-0.2); Platelet Count Result 242 k/mm3 (150-375); Red Blood Count 4.05 M/mm3 (4.2-5.4); White Blood Count 5.1 K/mm3 (4.5-10.0)
[2025-06-15] MEDS: KETOROLAC 15 MG/ML VIAL (*BKC) IV PUSH (01:49)
[2025-06-15] MEDS: SODIUM CHLORIDE 0.9% IV 1,000 ML 999 ML IV CONT (01:50)
[2025-06-15 02:01] LABS: Alanine Aminotransferase 22 U/L (6-35); Albumin Level 4.4 g/dL (3.5-5.1); Alkaline Phosphatase 70 U/L (38-126); Anion Gap 5 mmol/L (4-12); Aspartate Amino Transferase 42 U/L (14-36); Bilirubin,Total 0.6 mg/dL (0.2-1.3); Blood Urea Nitrogen 11 mg/dL (7-17); Calcium 8.9 mg/dL (8.4-10.2); Carbon Dioxide 24 mmol/L (22-30); Chloride 107 mmol/L (98-107); Estimated CRCL calculation 92 ml/min; Estimated Glomerular Filt Rate > 60; Glucose 103 mg/dL (65-110); Lipase 59 U/L (23-300); Magnesium 2.4 mg/dL (1.6-2.3); Potassium 4.3 mmol/L (3.4-5.0); Sodium 136 mmol/L (137-145); Total Protein 8.6 g/dL (6.3-8.2)
[2025-06-15 02:10] LABS: Creatine Kinase 231 U/L (30-135)
[2025-06-15 04:27] VITALS: BP 125/87; PULSE 72; RESP 20; TEMP 36.7; O2SAT 100
== END 2025-06-15 04:30 | disposition home or self-care (01) ==
PROVIDERS: Emergency Provider Student in an Organized Health Care Education/Training Program; PCP Nurse Practitioner Family
DX: R10.A2 Flank pain, left side (principal)
CPT/HCPCS: 36415; 74176; 80053; 81001; 81025; 82550; 83690; 83735; 85025; 87086; 96361; 96374; 99284; J1885; J7030